=== PATIENT | male | born 1945 | race Caucasian/White ===

== ENCOUNTER 2018-11-13 10:36 | Outpatient (CLI) | payer MEDICARE, OTHER, SELFPAY ==
[2018-11-13 12:14] LABS: Anion Gap 10.2 mmol/L (3-11); BUN 20 mg/dL (7-18); CO2 27.8 mmol/L (21.0-32.0); CREATININE 1.35 mg/dL (0.70-1.30); Calcium 9.1 mg/dL (8.5-10.1); Chloride 105 mmol/L (98-107); Cholesterol 121 mg/dL (50-200); Estimated GFR 51.52 (mL/min/1.73m2); Glucose 98 mg/dL (70-100); HDL Cholesterol 46 mg/dL (40-60); LDL CHOLESTEROL 66 mg/dL (<100); Potassium 3.6 mmol/L (3.5-5.1); Sodium 143 mmol/L (136-145); Triglyceride 51 mg/dL (30-150)
== END 2018-11-13 10:56 ==
PROVIDERS: PCP Internal Medicine; Visit Provider Internal Medicine
DX: I10 Essential (primary) hypertension (principal); I48.91 Unspecified atrial fibrillation; R73.01 Impaired fasting glucose
CPT/HCPCS: 36415; 80048; 80061; 83721

== ENCOUNTER 2019-11-10 10:25 | Outpatient (CLI) | payer MEDICARE, OTHER, SELFPAY ==
[2019-11-10 11:34] LABS: Anion Gap 10.2 mmol/L (3-11); BUN 19 mg/dL (7-18); CO2 27.8 mmol/L (21.0-32.0); CREATININE 1.34 mg/dL (0.70-1.30); Calcium 9.1 mg/dL (8.5-10.1); Calculated LDL 86 mg/dL; Chloride 104 mmol/L (98-107); Cholesterol 142 mg/dL (<200); Estimated GFR 51.83 (mL/min/1.73m2); Glucose 103 mg/dL (74-106); HDL Cholesterol 43 mg/dL (40-60); Potassium 3.6 mmol/L (3.5-5.1); Sodium 142 mmol/L (136-145); Triglyceride 67 mg/dL (<150)
== END 2019-11-10 10:45 ==
PROVIDERS: PCP Internal Medicine; Visit Provider Internal Medicine
DX: E78.00 Pure hypercholesterolemia, unspecified (principal); I10 Essential (primary) hypertension
CPT/HCPCS: 36415; 80048; 80061

== ENCOUNTER 2020-10-17 02:01 | Outpatient (CLI) | payer MEDICARE, SELFPAY ==
[2020-10-17 11:55] LABS: Anion Gap 8.8 mmol/L (3-11); BUN 32 mg/dL (7-18); CO2 30.2 mmol/L (21.0-32.0); CREATININE 1.58 mg/dL (0.70-1.30); Calcium 8.7 mg/dL (8.5-10.1); Calculated LDL 75 mg/dL (<100); Chloride 105 mmol/L (98-107); Cholesterol 136 mg/dL (<200); Estimated GFR 42.74 (mL/min/1.73m2); Glucose 120 mg/dL (74-106); HDL Cholesterol 46 mg/dL (40-60); Sodium 144 mmol/L (136-145); Triglyceride 78 mg/dL (<150)
== END 2020-10-17 02:21 ==
PROVIDERS: PCP Internal Medicine; Visit Provider Internal Medicine
DX: I10 Essential (primary) hypertension (principal); E78.00 Pure hypercholesterolemia, unspecified
CPT/HCPCS: 36415; 80048; 80061

== ENCOUNTER 2021-02-09 08:52 | Outpatient (CLI) | payer MEDICARE, OTHER, SELFPAY ==
[2021-02-10 15:03] LABS: COVID-19 RT-PCR UVMMC Result Negative (Negative)
== END 2021-02-09 08:53 | disposition home or self-care (01) ==
PROVIDERS: PCP Internal Medicine; Visit Provider Internal Medicine
DX: Z20.822 Contact with and (suspected) exposure to COVID-19 (principal)
CPT/HCPCS: U0003; U0005

== ENCOUNTER 2021-03-07 03:09 | Outpatient (CLI) | payer MEDICARE, OTHER, SELFPAY ==
[2021-03-07 11:38] LABS: Anion Gap 7.5 mmol/L (3-11); BUN 25 mg/dL (7-18); CO2 29.5 mmol/L (21.0-32.0); CREATININE 1.5 mg/dL (0.70-1.30); Calcium 8.7 mg/dL (8.5-10.1); Chloride 106 mmol/L (98-107); Estimated GFR 45.38 (mL/min/1.73m2); Glucose 161 mg/dL (74-106); Potassium 3.8 mmol/L (3.5-5.1); Sodium 143 mmol/L (136-145)
== END 2021-03-07 03:10 | disposition home or self-care (01) ==
LOC: LBO 03:09
PROVIDERS: PCP Internal Medicine; Visit Provider Internal Medicine
DX: I10 Essential (primary) hypertension (principal); N18.9 Chronic kidney disease, unspecified
CPT/HCPCS: 36415; 80048

== ENCOUNTER 2021-07-27 01:17 | Outpatient (CLI) | payer MEDICARE, OTHER, SELFPAY ==
[2021-07-27 09:22] LABS: HCT 35.7 % (40.0-50.0); HGB 11.4 g/dL (13.5-17.5); MCH 26.8 pg (27.0-33.0); MCHC 31.9 % (32.0-36.0); MCV 83.8 fL (80-95); MPV 10.3 fL (8.0-11.0); Platelet Count 276 10^3/uL (130-400); RBC 4.26 10^6/uL (4.36-5.78); RDW 15.9 % (11.8-14.1); RDW-SD 48.6 fL
[2021-07-27 11:09] LABS: ALT 21 U/L (16-63); AST 15 U/L (15-37); Albumin 3.4 g/dL (3.4-5.0); Alkaline Phosphatase 137 U/L (46-116); BUN 26 mg/dL (7-18); Bilirubin, Total 0.7 mg/dL (0.2-1.0); CREATININE 1.5 mg/dL (0.70-1.30); Calcium 8.7 mg/dL (8.5-10.1); Chloride 105 mmol/L (98-107); Estimated GFR 45.26 (mL/min/1.73m2); Glucose 105 mg/dL (74-106); Potassium 4.1 mmol/L (3.5-5.1); Sodium 142 mmol/L (136-145); Total Protein 7.2 g/dL (6.4-8.2); Vitamin B12 362 pg/mL (193-986)
== END 2021-07-27 01:18 | disposition home or self-care (01) ==
LOC: LBO 01:17
PROVIDERS: PCP Internal Medicine; Visit Provider Internal Medicine
DX: R53.83 Other fatigue (principal)
CPT/HCPCS: 36415; 80053; 85027; 82607; 84443

== ENCOUNTER 2021-08-03 01:42 | Outpatient (CLI) | payer MEDICARE, OTHER, SELFPAY ==
[2021-08-03] MEDS: Albuterol HFA 18 GM 200 PUFF INH IH (08:40)
[2021-08-03] MEDS: Inhaler, Assist Device 1 EACH MC (08:41)
--- NOTE | 2021-08-03 15:22 | W.PFT ---
Date of service: 08/03/21 Time of Service: 08:00 Pulmonary Function Test Result Requesting Provider Ilda Kennedy Indications: Dyspnea on exertion Interpretation Spirometry: There is no airflow limitation. There is no significant bronchodilator response. Lung Volumes: Lung volumes are normal Diffusion Capacity: The diffusion is reduced Airway Pressure: Airways resistance is normal Impression Normal spirometry and lung volumes with a reduced diffusion. Clinical Correlation therefore is recommended.
== END 2021-08-03 01:43 | disposition home or self-care (01) ==
LOC: RT 01:42
PROVIDERS: PCP Internal Medicine; Visit Provider Internal Medicine
DX: R06.09 Other forms of dyspnea (principal); R53.83 Other fatigue; R94.2 Abnormal results of pulmonary function studies
CPT/HCPCS: 36415; 94060; 94726; 94729; 83540; 83550; 85045

== ENCOUNTER 2021-08-03 02:12 | Outpatient (CLI) | payer MEDICARE, OTHER, SELFPAY ==
[2021-08-03 09:43] LABS: Reticulocyte 1.8 % (0.5-2.4)
[2021-08-03 11:02] LABS: Iron 32 ug/dL (65-175); Total Iron Binding Capacity 361 ug/dL (250-450); Transferrin Sat 9 % (20-55)
== END 2021-08-03 02:13 | disposition home or self-care (01) ==
LOC: LBO 02:14
PROVIDERS: PCP Internal Medicine; Visit Provider Internal Medicine
DX: D64.9 Anemia, unspecified (principal)
CPT/HCPCS: 36415; 83540; 83550; 85045

== ENCOUNTER 2021-08-06 00:25 | Outpatient (CLI) | payer MEDICARE, OTHER, SELFPAY ==
--- NOTE | 2021-08-06 05:45 | ETT_ITS ---
APPROVED REPORT Exam: Exercise Treadmill Patient Location: Out-Patient Room/Bed: Stress Nurse: Elke Paez RN Ordering Provider:JERE BANUELOS, Contact Number: [phone] BMI: 39.86 Baseline Rhythm: Atrial Fibrillation Comment: occasional PVC Indications: DYSPNEA ON EXERTION Medical History Medical History: HTN, AFIB w/ RVR, CKD, GERD, HLD, Venous insufficiency, Obesity, Hypomagnesemia, SOB , Impaired fasting glucose Cardiac Medications: Simvastatin, Rivaroxaban, Omeprazole, Metoprolol tartrate, Magnesium oxixde, Los jess, Doxazosin, Bumetanide, Amlodipine Allergies: No known drug allergies Cardiac Risk Factors: FHX of CAD, HTN, Hyperlipidemia, Obesity, Smoking (former) Previous Cardiac Procedures: None Pretest Chest Pain Characteristics: Dyspnea Exercise History: Sedentary Physical Disabilities: None Lung Sounds: Clear to auscultation Heart Sounds: Irregular Stress Test Details Test: Exercise stress testing was performed using a Marlo protocol. Rest Stress HR Resting HR Supine: 76 bpm Max Heart Rate (APMHR): 142 bpm Resting HR Standin bpm Target HR (85% APMHR): 120 bpm Max HR Achieved: 126 bpm % of APMHR: 88 Recovery HR: 71 bpm HR response to stress: Normal HR response to stress Comment: Metoprolol tartrate not held BP Resting BP Supine: 128/82 mmHg Resting BP Standin/72 mmHg Max BP: 138/80 mmHg Recovery BP: 138/80 mmHg BP response to stress: Normal blood pressure response to stress. ECG Resting ECG: Atrial Fibrillation Ectopy: occasional PVC Stress ECG: Atrial Fibrillation ST Change: No significant ST segment changes noted Arrhythmia: None Recovery ECG: Atrial Fibrillation Recovery ST Change: No significant ST segment changes noted Recovery Arrhythmia: occasional PVC Clinical Reason for Termination: Dyspnea, Fatigue Stress Symptoms: Dyspnea, General Fatigue Exercise duration: 2 min17 sec Highest Stage Reached: Stage 1: 1.7 mph at 10% grade. Exercise capacity: 4.64 METs De La Rosa Treadmill Score: 2 Rate Pressure Product: [id number] Stress ECG Conclusion 1. The resting electrocardiogram showed atrial fibrillation 2. The patient exercised on the Marlo protocol and completed a workload of 4.64 METS, limited by shor tness of breath and fatigue 3. Normal heart rate and blood pressure response to exercise. The patient achieved 88% of predicted heart rate for age 4. Electrocardiographically there was no evidence of myocardial ischemia 5. Atrial fibrillation was present throughout, with occasional premature ventricular contractions De La Rosa Treadmill Score is 2 which is Moderate risk. Stress Test Summary STAGE Time (mins) Speed (mph) Grade (%) HR BP SYMPTOMS METS Supine 76 128/82 Standing 72 122/72 1 3 1.7 10 severe SOB; SpO2 97% 4.6 1 min recovery 71 136/62 3 min recovery 74 132/72 moderate SOB 6 min recovery 71 138/80 SOB resolved.
--- NOTE | 2021-08-06 05:58 | DI.RAD_ITS ---
Exam(s) XR CHEST 2V PA LATERAL EXAM: XR CHEST 2V PA LATERAL CLINICAL HISTORY: dyspnea ON EXERTION,R06.00 TECHNIQUE: COMPARISON: CR CHEST 2 VIEWS PA,LAT from 12/15/2014 FINDINGS: The heart is at the upper limits of normal size. The lungs appear clear. No pleural effusion seen. IMPRESSION: No evidence of acute process. No change from examination of November 2014. RADIATION DOSE DELIVERED: Total DLP
== END 2021-08-06 00:45 ==
PROVIDERS: PCP Internal Medicine; Visit Provider Internal Medicine
DX: R06.09 Other forms of dyspnea (principal); R53.83 Other fatigue; I48.91 Unspecified atrial fibrillation; Z82.49 Family history of ischemic heart disease and other diseases of the circulatory system; I10 Essential (primary) hypertension; E78.5 Hyperlipidemia, unspecified; E66.9 Obesity, unspecified; Z87.891 Personal history of nicotine dependence; I49.3 Ventricular premature depolarization
CPT/HCPCS: 93016; 93018; 71046; 93017

== ENCOUNTER 2021-09-18 01:06 | Outpatient (CLI) | payer MEDICARE, OTHER, SELFPAY ==
--- NOTE | 2021-09-18 07:00 | DI.US_ITS ---
APPROVED REPORT EXAM: Comprehensive 2D, Doppler, and color-flow Echocardiogram Patient Location: Out-Patient [employer] Dean: Brissa Zhou RDCS (AE) Indications: Dyspnea on exertion, A Fib Other Information Study Quality: Fair. Technically limited study due to body habitus. Conclusion Mild concentric left ventricular hypertrophy. Estimated ejection fraction is 55 to 60%. Wall motion is normal Normal right ventricular size and systolic function Both atria are moderately dilated The aortic valve is trileaflet and sclerotic without stenosis or regurgitation Mild mitral annular calcification. Trace to mild mitral regurgitation Normal tricuspid valve with mild regurgitation. Unable to estimate right ventricular systolic pressu re Dilated ascending aorta measuring 4.12 cm Wall motion Left Ventricle The left ventricle is normal size. The left ventricular systolic function is normal. The left ventric ular ejection fraction is within the normal range. Mild concentric left ventricular hypertrophy. Ther e is normal LV segmental wall motion. There is no ventricular septal defect visualized. LVEF is 57%. Right Ventricle The right ventricle is normal size. The right ventricular systolic function is normal. Atria Left atrium is moderately dilated. Right atrium is moderately dilated. The interatrial septum is inta ct with no evidence for an atrial septal defect. Aortic Valve The Aortic valve is sclerotic. Aortic valve is trileaflet. There is no aortic valvular stenosis. No a ortic regurgitation is present. Mitral Valve Mild mitral annular calcification. No evidence of mitral valve stenosis. Trace to mild mitral regurgi tation. Tricuspid Valve The tricuspid valve is normal in structure. There is no tricuspid valve stenosis. Mild tricuspid regu rgitation. Unable to assess PA pressure. Pulmonic Valve Pulmonic valve is not well visualized. There is no pulmonic valvular stenosis. There is no pulmonic v alvular regurgitation. Great Vessels The aortic root is normal in size. The ascending aorta is moderately dilated.4.12 cm Aortic arch is n ormal in caliber. IVC is normal in size and collapses >50% with inspiration. Pericardium There is no pericardial effusion. 2D Dimensions IVSD d PLAX 1.17 cm M: 0.6-1.2 LV Vol A2C d MOD 129.1 mL LVPW d PLAX 1.26 cm M: 0.6 - 1.2 LV Vol A4C d MOD 99.8 mL LVID d PLAX 4.80 cm M: 4.2 - 5.8 LA vol/ BSA A2C s A-L 53.2 mL/m2 LVDs 3.35 cm M: 2.5 - 4.0 LA vol/ BSA A4C s A-L 39.9 mL/m2 Ao Root d 3.29 cm M: 3.1 - 3.7 LA Vol/ BSA Biplane s A-L 47.7 mL/m2 RA Area A4C 20.73 cm2 LA Area A4C s MOD 26.76 cm2 RA Vol/ BSA A4C s A-L 27.2 mL/m2 LA Area A2C s MOD 32.04 cm2 Ao Asc Diam d 4.12 cm M: 2.6 - 3.4 LV EF A4C MOD 57.2 % LV EF Teichholz 56.4 % LV EF A2C MOD 57.7 % LVEF (Real's) 57.38 % M: 52 - 72 LV EF Biplane MOD 57.4 % LV Volume 81.06 mL M: 62 - 150 SV 65.23 mL LV Volume Index 34.64 mL/m2 M: 34 - 74 SV Index 27.80 mL/m2 LV Vol Biplane MOD 113.7 mL FS 29.50 % M-Mode TAPSE 1.56 cm (M/F) >1.7 LV Diastology MV E' medial 0.089 (>0.07 m/s) MV E Vmax 1.05 (0.4-1.3 m/s) LV E/e MED 11.80 (<14) MV E' lateral 0.110 (>0.1 m/s) LV E/e LAT 9.55 (<14) MV E/E' medial 11.81 MV E/E' lateral 9.60 Aortic Valve LVOT Area 3.42 cm2 AoV Area Vmax 1.91 cm2 LVOT Vmax 0.94 m/s AoV Area/ BSA (Vmax) 0.81 cm2/m2 LVOT Mean Venkat. 0.79 m/s SUSANNE Mean Venkat. 2.31 cm2 LVOT Peak Grad 3.5 mmHg SUSANNE Mean Venkat. Index 0.98 cm2/m2 LVOT Mean Grad 2.7 mmHg LVOT VTI 0.217 m LVOT Diam s 2.05 cm AoV Vmax 1.68 m/s Velocity Ratio 0.55 AoV Mean Venkat. 1.18 m/s AoV Peak Grad 11.3 mmHg LVOT SV 74.14 mL AoV Mean Grad 6.2 mmHg AoV VTI 0.352 m AoV Area VTI 2.10 cm2 AoV Area/ BSA (VTI) 0.90 cm/m2 Mitral Valve MV DT 180 (160-240 msec) MV PHT 52 msec MV Area PHT 4.22 cm2 MV VTI 0.308 m MV Area VTI 2.41 (4.0-6.0 cm2) Pulmonary Valve PV Vmax 1.02 (0.5-1.5 m/s) RVOT Peak Gr. 1.51 mmHg PV Peak Grad 4.1 mmHg RVOT Mean Gr. 0.90 mmHg PV Mean Grad 2.4 mmHg RVOT VTI 0.115 m PV VTI 0.204 m RVOT Vmax 0.61 m/s
== END 2021-09-18 01:26 ==
PROVIDERS: PCP Internal Medicine; Visit Provider Internal Medicine
DX: R06.00 Dyspnea, unspecified (principal); I48.91 Unspecified atrial fibrillation; R93.9 Diagnostic imaging inconclusive due to excess body fat of patient; I77.810 Thoracic aortic ectasia; I08.1 Rheumatic disorders of both mitral and tricuspid valves
CPT/HCPCS: 93306

== ENCOUNTER 2022-04-17 10:48 | Emergency (ER) | payer MEDICARE, OTHER, SELFPAY ==
[2022-04-17 10:49] VITALS: BP 156/86; PULSE 89; RESP 16; TEMP 36.3; O2SAT 96
--- NOTE | 2022-04-17 11:11 | ED.GENADUL_ITS ---
Discharge Plan Disposition Patient Disposition: HOME Condition: Improving Discharge Details Clinical Impression: Anterior epistaxis Primary Care Provider: Ilda Kennedy ED Provider: Igor Sanchez Home Meds and New Rx's Prescriptions: Continued albuterol sulfate 90 mcg/actuation HFA aerosol inhaler 2 puff inhalation QID PRN (Reason: shortness of breath or wheezing) Qty: 1 2RF Rx Instructions: Use 2 puffs in the AM then up to 3 more times a day as needed. Use with a spacer. (DME) compr.stocking,knee,long,large Misc See Rx Instructions .ROUTE .MEDSUPPLY Qty: 1 12RF Rx Instructions: As directed magnesium oxide 400 MG tablet 400 mg PO BID Qty: 60 losartan 100 mg tablet 100 mg PO DAILY Qty: 90 3RF metoprolol tartrate 100 mg tablet 200 mg PO BID Qty: 360 3RF simvastatin 20 mg tablet 10 mg PO DAILY Qty: 45 3RF omeprazole 20 mg capsule,delayed release(DR/EC) 20 mg PO DAILY Qty: 90 2RF Xarelto 20 mg tablet 20 mg PO DAILY Qty: 90 2RF amlodipine 5 mg tablet 5 mg PO DAILY Qty: 90 1RF doxazosin 2 mg tablet 2 mg PO DAILY Qty: 90 1RF bumetanide 2 mg tablet 2 mg PO DAILY Qty: 90 1RF Discharge Instructions Instructions: Nosebleed (ED) Additional Instructions: Please hold 1 dose of your rivaroxaban. If you have recurrent bleeding, placed on nasal clamps for 20 minutes without interruption. Return to the ER for any acute concerns Medical Decision Making 77-year-old male with history of atrial fibrillation for which she is maintained on amlodipine, metoprolol, rivaroxaban. While sitting on the toilet this morning he had brief right anterior nostril bleeding responded to pressure at home. EMS was called and patient was transported to the ED. By the time of arrival the bleeding has ceased. There is no blood in oropharynx. Discussed with patient options. We will place bacitracin today, patient instructed on use of nasal clamp, we will defer early placement of nasal tampon or packing, no active bleeding is identified at this time. Patient stable and appropriate for discharge to home. I will have him hold 1 dose of rivaroxaban and then resume. He understands indications to seek reevaluation in the ER. HPI General Mode of arrival: EMS . Date/Time Provider Initiated Documentation: 04/17/22 11:16 . Limitations to Documentation: no limitations . Information obtained by: patient, family and EMS . History of Present Illness 77 year old M presents to the emergency department with the chief complaint of Epistaxis at home, described as mild, and is localized to the face and right. Patient reports no radiation. Patient started experiencing this minute(s) and it has been now resolved. No relieving factors improve symptom(s), No exacerbating factors reported . Patient notes denies headaches and weakness. Patient did receive the following treatments prior to arrival, other (Pressure at home) Related Data Home Medications Medication Instructions Recorded Confirmed magnesium oxide 400 mg (241.3 mg 400 mg PO BID #60 tabs 12/23/14 04/17/22 magnesium) tablet losartan 100 mg tablet 100 mg PO DAILY #90 tabs 07/18/21 04/17/22 metoprolol tartrate 100 mg tablet 200 mg PO BID #360 tab-caps 07/18/21 04/17/22 simvastatin 20 mg tablet 10 mg PO DAILY #45 tab-caps 07/18/21 04/17/22 albuterol sulfate 90 mcg/actuation 2 puff inhalation QID PRN 09/11/21 04/17/22 aerosol inhaler shortness of breath or wheezing #1 unit omeprazole 20 mg capsule,delayed 20 mg PO DAILY #90 tab-caps 10/23/21 04/17/22 release rivaroxaban 20 mg tablet (Xarelto) 20 mg PO DAILY #90 tab-caps 10/23/21 04/17/22 amlodipine 5 mg tablet 5 mg PO DAILY #90 tab-caps 12/27/21 04/17/22 bumetanide 2 mg tablet 2 mg PO DAILY #90 tabs 01/01/22 04/17/22 doxazosin 2 mg tablet 2 mg PO DAILY #90 tab-caps 01/01/22 04/17/22 compr.stocking,knee,long,large ##1 03/13/22 04/17/22 Previous Rx's Medication Instructions Recorded losartan 100 mg tablet 100 mg PO DAILY #90 tabs 07/18/21 metoprolol tartrate 100 mg tablet 200 mg PO BID #360 tab-caps 07/18/21 simvastatin 20 mg tablet 10 mg PO DAILY #45 tab-caps 07/18/21 albuterol sulfate 90 mcg/actuation 2 puff inhalation QID PRN 09/11/21 aerosol inhaler shortness of breath or wheezing #1 unit omeprazole 20 mg capsule,delayed 20 mg PO DAILY #90 tab-caps 10/23/21 release rivaroxaban 20 mg tablet (Xarelto) 20 mg PO DAILY #90 tab-caps 10/23/21 amlodipine 5 mg tablet 5 mg PO DAILY #90 tab-caps 12/27/21 bumetanide 2 mg tablet 2 mg PO DAILY #90 tabs 01/01/22 doxazosin 2 mg tablet 2 mg PO DAILY #90 tab-caps 01/01/22 compr.stocking,knee,long,large ##1 03/13/22 Allergies Allergy/AdvReac Type Severity Reaction Status Date / Time No Known Allergies Allergy Verified 04/17/22 10:54 General Stated Complaint: Epistaxis VAL: 4 Review of Systems Narrative: 6 systems reviewed and otherwise PFSH All Active Problems (Updated 04/17/22 @ 11:16 by Igor Sanchez MD) Anterior epistaxis (Acute) JANINE (obstructive sleep apnea) (Chronic ~2007) 01/01/22 F/U Sleep Clinic - new cpap supplies, f/u in 2 years Iron deficiency anemia (Acute ~11/2021) 12/12/21 gastric polyps (removed during endoscopy) by Dr Valenzuela Hypertension (Chronic) Atrial fibrillation with RVR (Acute 12/15/14) Chronic anticoagulation (Chronic) Chronic kidney disease (CKD) (Chronic) Impaired fasting glucose (Chronic) GERD (gastroesophageal reflux disease) (Chronic) Hyperlipidemia (Chronic) Venous insufficiency (Chronic) Migraine without aura (Acute 02/10/12) Benign prostatic hypertrophy (Chronic) Obesity (Chronic) Hypomagnesemia (Acute 12/15/14) Medical History Polyp, stomach (~12/12/21) 12/12/21 removed during endoscopy by Dr Valenzuela (waiting on pathology) Surgical History Colonoscopy - IV Sedation (09/07/04) Excision, Pilonidal Cyst (10/27/1957) fx left lower leg 1953 gallbladder (01/28/13) H/O colonoscopy (~12/12/21) H/O endoscopy (~12/12/21) 12/12/21 Endoscopy w stomach polyps removed ( Dr Valenzuela) Family History Father , old age/longevity. 93 yo. No problems noted. Mother , 88 yo No problems noted. Social History Smoking/Tobacco Use Status: Never Smoking risk assessment performed?: Yes Alcohol Intake: current Alcohol Intake frequency: holidays/special occasions only Drug use: Never Substance use type: does not use Household members: spouse Housing: house Number of Children: 2 number of grandchildren: 3 Communication Needs: Corrective Lenses current occupation: retired from [employer] shop Current gender identity: male What is your relationship status?: Panel score (0-1 are the most socially isolated patients): 1 What type of physical activity do you participate in: walking Duration: 15-30 minutes/day Frequency: 3-4 times per week Seatbelt use: always Drive 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 Pleasant, well groomed, interactive. HEAD: Normocephalic, atraumatic ENT: Mucous membranes moist, oropharynx unremarkable, trace dried blood right nare, no active bleeding, left nare unremarkable, external ear exam unremarkable EYES: PERRL, EOMI NECK: Full ROM, no ROSIE, no menigismus CHEST/RESP: Nontender, clear to auscultation bilateral, no wheeze/rhonchi/rales CARDIOVASCULAR: Irregularly irregular, distant, no murmur, rub lucio. 2+ Rad pulse bilateral ABDOMEN: Soft, nontender, no mass. +Bowel sounds EXT: Full ROM, no edema, no rash Neuro: Grossly normal neurologic exam, conversant, interactive. Psych: Speech fluent, thoughts congruent, affect normal Course Vital Signs Vital signs: Vital Signs Temperature 36.3 C L 04/17/22 10:49 Pulse 89 04/17/22 10:49 Respiratory Rate 16 04/17/22 10:49 Blood Pressure 156/86 H 04/17/22 10:49 Pulse Oximetry 96 04/17/22 10:49 Temperature 36.3 C L 04/17/22 10:49 Temperature Source Oral 04/17/22 10:49 Pulse 89 04/17/22 10:49 Respiratory Rate 16 04/17/22 10:49 Respiratory Effort 04/17/22 10:53 Blood Pressure 156/86 H 04/17/22 10:49 Blood Pressure Position Sitting 04/17/22 10:49 Pulse Oximetry 96 04/17/22 10:49 Oxygen Delivery Method Room Air 04/17/22 10:49 Oxygen Flow Rate 0 04/17/22 10:49 Pain Level 0 04/17/22 10:49
== END 2022-04-17 11:50 | disposition home or self-care (01) ==
PROVIDERS: Emergency Provider Emergency Medicine; PCP Internal Medicine
DX: R04.0 Epistaxis (principal)
CPT/HCPCS: 99283

== ENCOUNTER 2022-04-26 01:29 | Emergency (ER) | payer MEDICARE, OTHER, SELFPAY ==
--- NOTE | 2022-04-26 01:17 | W.ED.GENAD ---
Discharge Plan Disposition Patient Disposition: HOME Condition: Good Discharge Details Clinical Impression: Epistaxis Primary Care Provider: Ilda Kennedy ED Provider: Moriah Ordoñez Home Meds and New Rx's Prescriptions: Continued albuterol sulfate 90 mcg/actuation HFA aerosol inhaler 2 puff inhalation QID PRN (Reason: shortness of breath or wheezing) Qty: 1 2RF Rx Instructions: Use 2 puffs in the AM then up to 3 more times a day as needed. Use with a spacer. (DME) compr.stocking,knee,long,large Misc See Rx Instructions .ROUTE .MEDSUPPLY Qty: 1 12RF Rx Instructions: As directed magnesium oxide 400 MG tablet 400 mg PO BID Qty: 60 losartan 100 mg tablet 100 mg PO DAILY Qty: 90 3RF metoprolol tartrate 100 mg tablet 200 mg PO BID Qty: 360 3RF simvastatin 20 mg tablet 10 mg PO DAILY Qty: 45 3RF omeprazole 20 mg capsule,delayed release(DR/EC) 20 mg PO DAILY Qty: 90 2RF Xarelto 20 mg tablet 20 mg PO DAILY Qty: 90 2RF amlodipine 5 mg tablet 5 mg PO DAILY Qty: 90 1RF doxazosin 2 mg tablet 2 mg PO DAILY Qty: 90 1RF bumetanide 2 mg tablet 2 mg PO DAILY Qty: 90 1RF Discharge Instructions Instructions: Nosebleed (ED) Additional Instructions: Keep your nose lubricated with plenty of vaseline once to twice daily. Be sure to sneeze with your mouth open and do not blow your nose. If you have any further nosebleeds, apply the nasal clamp. If it continues to bleed, you can apply an ice pack to your forehead and spray Afrin within your nose as directed. Follow-up with your primary care doctor in 1 week. Return to the emergency department with any worsening or new concerning symptoms. Discharge Data Discharge Date/Time-TO BE ENTERED AT DEPARTURE: 04/26/22 02:19 Discharge Physician: Moriah Ordoñez Medical Decision Making 77-year-old male with a history of atrial fibrillation on Xarelto, hypertension, hyperlipidemia, obesity, obstructive sleep apnea, GERD, migraine who presents for nosebleed that lasted approximately 30 to 45 minutes and then stopped. Bleeding noted to be stopped upon arrival of EMS on scene. Blood pressure hypertensive at 168/74 on arrival. Patient appears comfortable and nontoxic. Dried blood noted within the right nares but no active source of bleeding. No blood in oropharynx. Nasal clamp removed on arrival and patient observed for over 30 minutes and no return of bleeding. Patient felt comfortable going home. He was advised on proper placement of Vaseline within the nares and to make sure it is well lubricated. Advised to follow-up with the PCP regarding instruction on his Xarelto. Usual and customary return precautions given prior to discharge. Medical Records Medical records reviewed: Yes I reviewed the patient's medical records. HPI General Mode of arrival: ambulatory. Date/Time Provider Initiated Documentation: 04/26/22 02:10. Limitations to Documentation: no limitations. Information obtained by: patient. HPI Narrative: Patient is a 77-year-old male with a history of atrial fibrillation on Xarelto, GERD, hypertension, hyperlipidemia, JANINE, obesity and migraine presents for nosebleed that started 2 hours ago at 11 PM. EMS reported that nosebleed has stopped prior to arrival. Of note, patient was seen here 1 week ago for a nosebleed that had stopped on arrival to the ED. patient states he was getting ready for bed when he placed a Q-tip with Vaseline in the right side of his nose as instructed in the emergency department last week but states upon doing this, he developed nosebleed. Patient states that blood for approximately 30 to 45 minutes and then stopped with use of the nasal clamp. Upon arrival of EMS, bleeding remained controlled. Patient denies any headache, dizziness, chest pain or shortness of breath. Related Data Home Medications Medication Instructions Recorded Confirmed magnesium oxide 400 mg (241.3 mg 400 mg PO BID #60 tabs 12/23/14 04/26/22 magnesium) tablet losartan 100 mg tablet 100 mg PO DAILY #90 tabs 07/18/21 04/26/22 metoprolol tartrate 100 mg tablet 200 mg PO BID #360 tab-caps 07/18/21 04/26/22 simvastatin 20 mg tablet 10 mg PO DAILY #45 tab-caps 07/18/21 04/26/22 albuterol sulfate 90 mcg/actuation 2 puff inhalation QID PRN 09/11/21 04/26/22 aerosol inhaler shortness of breath or wheezing #1 unit omeprazole 20 mg capsule,delayed 20 mg PO DAILY #90 tab-caps 10/23/21 04/26/22 release rivaroxaban 20 mg tablet (Xarelto) 20 mg PO DAILY #90 tab-caps 10/23/21 04/26/22 amlodipine 5 mg tablet 5 mg PO DAILY #90 tab-caps 12/27/21 04/26/22 bumetanide 2 mg tablet 2 mg PO DAILY #90 tabs 01/01/22 04/26/22 doxazosin 2 mg tablet 2 mg PO DAILY #90 tab-caps 01/01/22 04/26/22 compr.stocking,knee,long,large ##1 03/13/22 04/17/22 Previous Rx's Medication Instructions Recorded losartan 100 mg tablet 100 mg PO DAILY #90 tabs 07/18/21 metoprolol tartrate 100 mg tablet 200 mg PO BID #360 tab-caps 07/18/21 simvastatin 20 mg tablet 10 mg PO DAILY #45 tab-caps 07/18/21 albuterol sulfate 90 mcg/actuation 2 puff inhalation QID PRN 09/11/21 aerosol inhaler shortness of breath or wheezing #1 unit omeprazole 20 mg capsule,delayed 20 mg PO DAILY #90 tab-caps 10/23/21 release rivaroxaban 20 mg tablet (Xarelto) 20 mg PO DAILY #90 tab-caps 10/23/21 amlodipine 5 mg tablet 5 mg PO DAILY #90 tab-caps 12/27/21 bumetanide 2 mg tablet 2 mg PO DAILY #90 tabs 01/01/22 doxazosin 2 mg tablet 2 mg PO DAILY #90 tab-caps 01/01/22 compr.stocking,knee,long,large ##1 03/13/22 Allergies Allergy/AdvReac Type Severity Reaction Status Date / Time No Known Allergies Allergy Verified 04/17/22 10:54 General Stated Complaint: Epistaxis VAL: 4 Review of Systems All systems reviewed & are unremarkable except as noted in HPI and below Constitutional Constitutional: Reports as per HPI, Denies chills and Denies fever(s) Eyes Eyes: Denies blurry vision ENT Ears, Nose, Mouth, and Throat: Denies dizziness, Reports epistaxis, Denies sore throat and Denies throat swelling Cardiovascular Cardiovascular: Denies chest pain and Denies dyspnea Respiratory Respiratory: Denies cough and Denies dyspnea Gastrointestinal Gastrointestinal: Denies abdominal pain, Denies diarrhea and Denies vomiting Genitourinary Genitourinary: Denies hematuria and Denies dysuria Musculoskeletal Musculoskeletal: Denies back pain and Denies numbness Integumentary/Breasts Skin/Breast: Denies lesions and Denies rash Neurologic Neurologic: Denies dizziness, Denies localized weakness and Denies numbness Allergic/Immunologic Allergic/Immunologic: Denies throat swelling PFSH All Active Problems (Updated 04/26/22 @ 02:12 by Moriah Ordoñez DO) Anterior epistaxis (Acute) Epistaxis (Acute) JANINE (obstructive sleep apnea) (Chronic ~2007) 01/01/22 F/U Sleep Clinic - new cpap supplies, f/u in 2 years Iron deficiency anemia (Acute ~11/2021) 12/12/21 gastric polyps (removed during endoscopy) by Dr Valenzuela Hypertension (Chronic) Atrial fibrillation with RVR (Acute 12/15/14) Chronic anticoagulation (Chronic) Chronic kidney disease (CKD) (Chronic) Impaired fasting glucose (Chronic) GERD (gastroesophageal reflux disease) (Chronic) Hyperlipidemia (Chronic) Venous insufficiency (Chronic) Migraine without aura (Acute 02/10/12) Benign prostatic hypertrophy (Chronic) Obesity (Chronic) Hypomagnesemia (Acute 12/15/14) Medical History Polyp, stomach (~12/12/21) 12/12/21 removed during endoscopy by Dr Valenzuela (waiting on pathology) Surgical History Colonoscopy - IV Sedation (09/07/04) Excision, Pilonidal Cyst (10/27/1957) fx left lower leg 1953 gallbladder (01/28/13) H/O colonoscopy (~12/12/21) H/O endoscopy (~12/12/21) 12/12/21 Endoscopy w stomach polyps removed ( Dr Valenzuela) Family History Father , old age/longevity. 93 yo. No problems noted. Mother , 88 yo No problems noted. Social History Smoking/Tobacco Use Status: Never Smoking risk assessment performed?: Yes Alcohol Intake: current Alcohol Intake frequency: holidays/special occasions only Drug use: Never Substance use type: does not use Household members: spouse Housing: house Number of Children: 2 number of grandchildren: 3 Communication Needs: Corrective Lenses current occupation: retired from [employer] Current gender identity: male What is your relationship status?: Panel score (0-1 are the most socially isolated patients): 1 What type of physical activity do you participate in: walking Duration: 15-30 minutes/day Frequency: 3-4 times per week Seatbelt use: always Drive intox or ride w/intox class a regional drivers: No Working smoke detector in home: Yes Fire extinguisher in home: Yes Carbon monox detector in home: Yes Do you feel safe at home: Yes Do you feel safe in your relationship?: Yes Exam Const General: cooperative and no acute distress Orientation: alert, awake and oriented x3 HENMT Head: normal to inspection Ears: hearing grossly normal bilaterally and external ears normal General nose exam: other (Dried blood within nares bilaterally, no active bleeding noted within nares) Mouth: oral mucosae normal Throat: posterior oropharynx normal Eyes General: appearance normal, both eyes and all related structures Neck Neck: normal visual inspection Resp Effort & Inspection: normal respiratory effort and able to speak in complete sentences Auscultation: clear to auscultation bilaterally Cardio Rate: regular rate Rhythm: regular rhythm Skin General skin exam: no rashes or lesions noted Neuro General: patient alert, patient awake and patient oriented x3 Motor: muscle tone normal throughout Extrem General: normal to inspection and full ROM Psych Appearance: grossly normal Affect: normal affect
[2022-04-26 01:20] VITALS: BP 168/74; PULSE 84; RESP 18; TEMP 36.7; O2SAT 98
--- OUTSIDE RECORDS SUMMARY | 2022-04-26 02:19 | XMS_ITS | Clinical Summary ---
:1945 Author Organization [facility] [place] [address] Care Team Providers Name Role Phone Unknown Primary Care Provider Unavailable Social History Tobacco Use Types Packs/Day Years Used Date Never Assessed Sex Assigned at Date Recorded Not on file Plan of Treatment Health Maintenance Due Date Last Done Comments Covid-19 Vaccine (#1) 1948 Hepatitis C Screening 1961 Tdap adult 1962 Tetanus vaccine 1962 Zoster vaccine (1 of 2) 1993 Advance Directive 1998 Pneumoccocal Vaccine: 65+ (1 - PCV) 2008 Influenza (Flu) vaccine (1 of 1 - Influenza standard 06/27/2021 series) Insurance Payer Benefit Plan / Subscriber ID Effective Dates Phone Addre ss Type Group [id number] 2021-Present [phone] HEALTH CLAIMS [address] [address] [place] [address] MEDICARE MEDICARE PART A [id number] 2021-Present [phone] [facility] [address] [place] [address] (Home) [place] [address] Care Teams Underwriting Analyst Relationship Specialty Start Date End Date Unknown PCP - General 08/06/17 None
--- OUTSIDE RECORDS SUMMARY | 2022-04-26 02:19 | XMS_ITS | Encounter Summary ---
:1945 Author Organization [facility] Address [address] [place] [address] Care Team Providers Name Role Phone Reagan Carcamo MD Primary Care Provider [phone] Encounter Details Date Type Department Care Team Description 02/09/2021 Lab Requisition [facility] Outr Resulting Lab, Pathology & Laboratory Provider General acute hospital [address] [place] [address] Social History Tobacco Use Types Packs/Day Years Used Date Never Assessed Sex Assigned at Date Recorded Not on file documented as of this encounter Plan of Treatment Not on filedocumented as of this encounter Procedures Procedure Name Priority Date/Time Associated Diagnosis Comme nts COVID-19 TEST [facility] Today 02/09/2021 10:31 LAB PCR EDT COVID-19 TESTING Routine 02/09/2021 10:31 Results for this EDT procedure are i n the results section. documented in this encounter Results COVID-19 TEST [facility] LAB PCR (02/09/2021 10:31 EDT) Specimen Swab - Entire nasopharynx (body structur e) Performing Organization Address City/State/ZIP Code Phon e Number [facility] [address] [place] [address] SERVICES COVID-19 TESTING (02/09/2021 10:31 EDT) COVID-19 rt-PCR Negative Negative [facility] Result Comment: CENTER [facility]ORY This test has not been FDA c leared or approved. This test has been authorized by FDA under an EUA for use by authorized laboratories. This test has been authorized only for detection of nucleic acid fro SERVICES m 2018-nCo, not for any oth er viruses or pathogens. This test is only authorized for the duration of the declaration that circumstances exist justifying the authorization of emergency use of in vitro d iagnostic tests for detectio n and/or diagnosis of 2019-nCoV under section 564(b)(1) of Act, 21 U.S.C ?? 360bbb-3(b) (1), unless the authorization is terminated or revoked sooner. Negative results do not prec lude 2019-nCoV infection and should not be used as the sole basis for treatment or other patient management decisions. Negative results must be combined with clinical observa tions, patient history, and epidemiological informatio n. Testing was performed using the rosy SARS-CoV-2 assay ([employer] on the Rosy 6800 System Performing Lab Rosy 6800 [facility] Lab [facility] SERVICES Specimen Swab Performing Organization Address City/State/ZIP Code Phon e Number [facility] [address] [place] [address] SERVICES documented in this encounter Visit Diagnoses Not on filedocumented in this encounter Care Teams Bulk Driver Relationship Specialty Start Date End Date Reagan Carcamo MD PCP - General 05/25/14 documented as of this encounter
--- OUTSIDE RECORDS SUMMARY | 2022-04-26 02:19 | XMS_ITS | Clinical Summary ---
:1945 Author Organization [facility] Address [address] [place] [address] Care Team Providers Name Role Phone Reagan Carcamo MD Primary Care Provider [phone] Social History Tobacco Use Types Packs/Day Years Used Date Never Assessed Sex Assigned at Date Recorded Not on file Plan of Treatment Health Maintenance Due Date Last Done Comments Fall Risk Screening 2008 Care Teams Fuel Dock Attendant Relationship Specialty Start Date End Date Reagan Carcamo MD PCP - General 05/25/14
--- OUTSIDE RECORDS SUMMARY | 2022-04-26 02:19 | XMS_ITS | Encounter Summary ---
:1945 Author Organization [facility] [place] [address] Care Team Providers Name Role Phone Unknown Primary Care Provider Unavailable Encounter Details Date Type Department Care Team Description 12/06/[address] [facility] Uriel Valenzuela [address], [place], [place] [address] [address] [place], [place] [phone] [id number] (Wo rk) Social History Tobacco Use Types Packs/Day Years Used Date Never Assessed Sex Assigned at Date Recorded Not on file documented as of this encounter Plan of Treatment Not on filedocumented as of this encounter Procedures Procedure Name Priority Date/Time Associated Diagnosis Comme nts COVID-19 PCR Routine 12/06/2021 10:00 AM Results for this EST procedure are i n the results section . documented in this encounter Results COVID-19 PCR (12/06/2021 10:00 AM EST) [facility] Method Time Signature SARS-CoV-2 Not Detected Not Detected [facility] Comment: This result should be interpreted in com bination with the clinical observations, patient history and epidem iological information in making a final diagnosis. For testing of asymptomatic i ndividuals, assay performance characteristics and clinical utility hav e not been evaluated. Testing for SARS-CoV-2 (Severe acute respiratory syn drome coronavirus 2, formerly known as 2019 novel coronavirus or 2019-nCoV) to aid in the diagnosis of COVID-19 is performed using the [employer] MIGUEL S-CoV-2 Assay as authorized by the FDA Emergency Use Authorization (EUA). This EUA assay is intended for In-vitro Diagnostic (IVD) use with respiratory sp ecimens such as nasopharyngeal swabs collected from individuals during the ac skyla phase of infection. This assay is performed based on the instructions for use provided by [employer] and additional guidance provided by CDC and FDA. Testing is performed in the [facility] within the Department of Pathology and Laboratory Medicine at [facility], certified under the Clinical Laboratory Improvement Amendments of 1988 (CLIA), 42 U.S.C. 263a, to perform high complexi ty tests. Assay performance has been verified according to clinical laborator y regulatory requirements for use with specimens collected from individuals tarsha pected of COVID-19. Test results are provided above. A result of Not Detecte d indicates that the viral RNA target is not present above the limit of detect ion, but does not preclude SARS-CoV-2 infection. False negative results may oc cur if a specimen is improperly collected, transported or handled; if am plification inhibitors are present; or if inadequate numbers of viral particles are present in the specimen. When a diagnostic test is negative, the possibi lity of a false negative result should be considered in the context of a patien t's recent exposures and the presence of clinical signs and symptoms consisten t with COVID-19. A result of Detected indicates that RNA from SARS-CoV-2 was d etected and the patient is infected. As required or requested by public health a uthorities, positive specimens may be sent for additional testing. Positive an d negative predictive values for this test are highly dependent on disease pre valence. A result of Invalid indicates that neither the viral RNA tar gets nor the internal control target was detected. An invalid result suggests the presence of inhibitors. Recollection and re-testing is recommend ed in the case of an invalid result. CDC COVID-19 criteria for testing on hum an specimens and clinical management guidance information are available at th e CDC Coronavirus Disease 2019 (COVID-19) webpage under Information fo r Healthcare Professionals (https://www.cdc.gov/coronavirus/2019-nc ov/hcp/index.html) Additional information about this and ot her EUA tests can be found in provider and patient fact sheets at the following FDA website: https://www.fda.gov/medical-devices/pxuuqihucfy-zagnlyn-0551-mafky-45-ptctcmiej- qou-mmyqhrmnrdvyeb-vznwbsb-devices/yqkyn-lrgmaauaxql-vkpd SARS-Cov-2 RNA Source CUSTOMER SUCCESS SPECIALIST Swab [facility] Specimen (Source) Anatomical Collection Method Collection Time Re ceived Time Location / / Volume Laterality Nasopharyngeal Swab 12/06/2021 10:00 11/27 AM EST 10:41 PM EST Resulting Agency Comment Spec In Lab Uriel Valenzuela DO MICROBIOLOGY - GENERAL RADHA GUERRERO Performing Organization Address City/State/[place] [address] documented in this encounter Visit Diagnoses Not on filedocumented in this encounter Care Teams Chief Engineer Research Relationship Specialty Start Date End Date Unknown PCP - General 08/06/17 None documented as of this encounter
--- OUTSIDE RECORDS SUMMARY | 2022-04-26 02:19 | XMS_ITS | Encounter Summary ---
:1945 Author Organization [facility] Address [address] [place] [address] Care Team Providers Name Role Phone Unavailable Primary Care Provider Unavailable Encounter Details Date Type Department Care Team Description 05/20/2014 Results Only [facility] Uriel Aragon , Laboratory Services - [address]QUEZ [address] [place] [address] [place], [place] [address] [phone] Social History Tobacco Use Types Packs/Day Years Used Date Never Assessed Sex Assigned at Date Recorded Not on file documented as of this encounter Plan of Treatment Not on filedocumented as of this encounter Procedures Procedure Name Priority Date/Time Associated Diagnosis Comme [facility] SURGICAL PATHOLOGY Routine 05/20/2014 7:27 EDT Re sults for this procedure are i n the results section. documented in this encounter Results SURGICAL PATHOLOGY (05/20/2014 7:27 EDT) Pathology Report: SURGICAL PATHOLOGY REPORT SAENZ A DOMINGASHALINI Reports generated via electronic interface contain lucien ginal data; LAB however they are lacking the format of the original re port. Caution should be taken when reading/interpreting unfo rmatted reports. Name: ? RICARDO WALLACE ? Accession #: ? [id number] ? : ? 1945 (Age: 69) ??M ? Collect Date: ? 05/20/2014 ? Location: ? [facility] ? Receive Date: ? 014 ? Provider: URIEL ARAGON DO Copy to: JIE COOK MD ? Final Pathologic Diagnosis: COLON, 70 CM, POLYP, BIOPSY: - ??Benign submucosal leiomyoma. Document reviewed and electronically signed by: CHRISTA LEYVA MD Report ??Date: 05/23/2014 16:40 By the signature above, the attending physician certif ies that he/she has personally conducted a gross and/or microscopic examin ation of the described specimens and rendered or confirmed the above diagnosi s. Specimen(s) Received: Polyp 70 cm Clinical History: Screening Gross Description: ? Received in formalin labelled with proper patient identification (initials F, K) and 1. polyp at 70 cm is a single pink-aiken tissue fragment (0.4 x 0.3 x 0.2 cm). Submitted intact in 1. Analia Lopez 05/23/2014 End of Report Specimen Performing Organization Address City/State/ZIP Code Phon e Number [facility] [address] [place] [address] SERVICES [facility] [address] [place] [address] documented in this encounter Visit Diagnoses Not on filedocumented in this encounter
--- OUTSIDE RECORDS SUMMARY | 2022-04-26 02:19 | XMS_ITS | Encounter Summary ---
:1945 Author Organization [facility] Address [address] [place] [address] Care Team Providers Name Role Phone Unavailable Primary Care Provider Unavailable Encounter Details Date Type Department Care Team Description 09/07/2004 Results Only [facility] - Puja Anguianoelson, Chr istopher, conversion DO [address] [place], [place] [id number] [place] [phone] (Wo rk) Social History Tobacco Use Types Packs/Day Years Used Date Never Assessed Sex Assigned at Date Recorded Not on file documented as of this encounter Plan of Treatment Not on filedocumented as of this encounter Procedures Procedure Name Priority Date/Time Associated Diagnosis Comme [facility] SURGICAL PATHOLOGY Routine 09/07/2004 0:00 EST Re sults for this procedure are i n the results section. documented in this encounter Results SURGICAL PATHOLOGY (09/07/2004 0:00 EST) Pathology Report: SURGICAL PATHOLOGY REPORT DANY Nile JUDITH Reports generated via electronic interface contain lucien ginal data; LAB however they are lacking the format of the original re port. Caution should be taken when reading/interpreting unfo rmatted reports. Name: ? RICARDO WALLACE ? Accession #: ? [id number] ? : ? 1945 (Age: 59) ??M ? Collect Date: ? 09/07/2004 ? Location: ? [facility] ? Receive Date: ? 004 ? Provider: JASSON ARAGON DO Copy to: JIE COOK MD ? Final Pathologic Diagnosis: ? Colon, 15 cm, polyp, biopsy: 1. ?Hyperplastic polyp. 2. ?No adenomatous mucosa identified. ?? Document reviewed and electronically signed by: DARIUS GOLDMAN MD Report ??Date: 09/10/2004 15:57 By the signature above, the attending physician certif ies that he/she has personally conducted a gross and/or microscopic examin ation of the described specimens and rendered or confirmed the above diagnosi s. Specimen(s) Received: ? Polyp 15 cm Clinical History: ? Screening for colon Ca Gross Description: ? Received in Hollande' s fixative labeled Valdemar and polyp 15 cm are three aiken-pink soft tissues averaging 0. 2 x 0.1 x 0.1 cm, submitted in toto in one cassette. [facility] End of Report Specimen Performing Organization Address City/State/ZIP Code Phon e Number [facility] [address] [place] [address] SERVICES [facility] [address] [place] [address] documented in this encounter Visit Diagnoses Not on filedocumented in this encounter
== END 2022-04-26 02:19 | disposition home or self-care (01) ==
LOC: ER 02:18
PROVIDERS: Emergency Provider Physician Assistant; PCP Internal Medicine
DX: R04.0 Epistaxis (principal); I10 Essential (primary) hypertension; I48.91 Unspecified atrial fibrillation; E78.5 Hyperlipidemia, unspecified; Z79.01 Long term (current) use of anticoagulants; Z79.899 Other long term (current) drug therapy
CPT/HCPCS: 99281; 99282

== ENCOUNTER 2022-08-27 03:12 | Outpatient (CLI) | payer MEDICARE, OTHER, SELFPAY ==
[2022-08-27 10:28] LABS: HCT 38.7 % (40.0-50.0); HGB 12.5 g/dL (13.5-17.5); MCH 27.7 pg (27.0-33.0); MCHC 32.3 % (32.0-36.0); MCV 86 fL (80-95); Platelet Count 272 10^3/uL (130-400); RBC 4.51 10^6/uL (4.36-5.78); RDW 15.2 % (11.8-14.1); RDW-SD 47.4 fL; WBC 10.14 10^3/uL (4.4-10.8)
[2022-08-27 10:45] LABS: BUN 31 mg/dL (7-18); CREATININE 1.7 mg/dL (0.70-1.30); Calcium 8.9 mg/dL (8.5-10.1); Calculated LDL 60 mg/dL (<100); Chloride 105 mmol/L (98-107); Cholesterol 129 mg/dL (<200); Glucose 146 mg/dL (74-106); HDL Cholesterol 48 mg/dL (40-60); Potassium 4.3 mmol/L (3.5-5.1); Sodium 141 mmol/L (136-145); Triglyceride 107 mg/dL (<150)
[2022-08-27 11:26] LABS: Iron 37 ug/dL (65-175)
== END 2022-08-27 03:13 | disposition home or self-care (01) ==
LOC: LBO 03:12
PROVIDERS: PCP Nurse Practitioner Adult Health; Visit Provider Internal Medicine
DX: E78.00 Pure hypercholesterolemia, unspecified (principal); D50.9 Iron deficiency anemia, unspecified; I10 Essential (primary) hypertension
CPT/HCPCS: 36415; 80048; 80061; 85027; 83540

== ENCOUNTER 2023-01-24 02:59 | Emergency (ER) | payer MEDICARE, OTHER, SELFPAY ==
[2023-01-24] VITALS (98 sets, daily range): BP systolic 147–180; BP diastolic 71–103; PULSE 41–119; RESP 12–23; TEMP 36.1; O2SAT 97
--- NOTE | 2023-01-24 02:45 | RT.EKG_ITS ---
APPROVED REPORT Exam: Resting ECG Reason for Exam: dizzy Patient Location: E HR:80 bpm ECG Measurements Heart Rate 80 AXIS CO [id number] P [id number] QRSd 103 QRS 47 QT 436 T 48 QTc 504 Conclusion Atrial fibrillation...V-rate 64-111, irreg A-activity Anteroseptal infarct, old...Q >40mS, V1-V2 Prolonged QT interval...QTc >500mS Rate controlled atrial fibrillation at a rate of 70 with interventricular conduction delay and a QRS of 103 ms. Normal axis. Prolonged QTc. No ST segment abnormalities. T wave flattening in aVL. No prior for comparison.
--- NOTE | 2023-01-24 03:14 | ED.GENADUL_ITS ---
Discharge Plan Disposition Patient Disposition: Transfer-Acute Inpatient Care Specific Acute Inpt Facility: [facility] Condition: Stable Discharge Details Clinical Impression: Acute non-ST elevation myocardial infarction (NSTEMI), Dizziness, Diaphoresis Primary Care Provider: Lianet Muñoz ED Provider: Mckay Iraheta Home Meds and New Rx's Prescriptions: Continued albuterol sulfate 90 mcg/actuation HFA aerosol inhaler 2 puff inhalation QID PRN (Reason: shortness of breath or wheezing) Qty: 1 2RF Rx Instructions: Use 2 puffs in the AM then up to 3 more times a day as needed. Use with a spacer. Xarelto 15 mg tablet 15 mg PO DAILY Qty: 90 3RF Rx Instructions: must administer with evening meal (DME) compr.stocking,knee,long,large Misc See Rx Instructions .ROUTE .MEDSUPPLY Qty: 1 12RF Rx Instructions: As directed omeprazole 20 mg capsule,delayed release(DR/EC) 20 mg PO DAILY Qty: 90 3RF simvastatin 20 mg tablet 10 mg PO DAILY Qty: 45 3RF losartan 100 mg tablet 100 mg PO DAILY Qty: 90 3RF doxazosin 2 mg tablet 2 mg PO DAILY Qty: 90 3RF amlodipine 5 mg tablet 5 mg PO DAILY Qty: 90 3RF bumetanide 1 mg tablet 1 mg PO DAILY Qty: 90 1RF Rx Instructions: Dose decrease 09/16/ ferrous gluconate 324 mg (38 mg iron) tablet 324 mg PO DAILY Qty: 90 1RF Rx Instructions: Anemia magnesium oxide 400 MG tablet 400 mg PO BID Qty: 60 metoprolol tartrate 100 mg tablet 200 mg PO BID Qty: 360 1RF Medical Decision Making This is an overall well-appearing afebrile and not tachycardic 77-year-old male with acute vestibular syndrome. He has a history of CKD and as result I am concerned for the possibility of electrolyte abnormality. He carries a history of atrial fibrillation and is in a rate controlled atrial fibrillation at a rate of 80. He is anticoagulated appropriately with rivaroxaban. I considered CVA however patient is neurologically intact and not a candidate for tPA based on his rivaroxaban use. His presentation with dizziness is concerning for posterior circulation CVA however the patient lacks truncal ataxia and has a negative Romberg so my suspicion is low for posterior circulation CVA. No recent chiropractic manipulation to suggest increased risk for cervical arterial dissection. Patient's presentation is not consistent with syncope but rather acute vestibular symptom. No reported foreign bodies in the ears. Patient denies alcohol and any history of recent new medications such as aminoglycosides. Will reassess following meclizine assessment of electrolytes and CBC and consider Anni maneuver. We will also check a troponin given patient's risk factors and the rapidity with which his symptoms began. 3:34 AM Patient's nurse tells me that his heart rates fell into the 30s and 40s beats per minute which could certainly cause dizziness. We will repeat ECG now. Patient is on both amlodipine and metoprolol and it certainly possible that he could be experiencing side effects from his dual beta-blockade and calcium channel ray. 4:05 AM Patient's conventional troponin I returned markedly positive at 475ng/L. Repeat ECG nonischemic with persistent rate controlled atrial fib. Patient has never had a positive troponin in the past. Patient's had arrived in the emergency department and she reported that at the time that his dizziness occurred it was associated with weakness and diaphoresis. Patient reports that he has never been diagnosed with coronary artery disease. He has no history of diabetes. Unfortunately [facility], [facility], [facility], and [facility] are all close to transfers at the moment. I have given the patient 325 mg of aspirin. Will attempt transfer to [facility]. 4:36 AM I spoke with Dr. River from the emergency department at [facility] who graciously accepted the patient. She advised heparin drip but advised against clopidogrel. I met with the patient and his and explained need for transfer for possibility of cardiac cath. Patient confirmed full code. He was mildly hypokalemic for which he will receive oral repletion. He was not anemic thrombocytopenic but he did have a mild leukocytosis. He had CKD but no SUMMER. He had a mildly elevated anion gap at 12.7 and mild hyperglycemia at 173 mg/dL. He had a normal bicarbonate. His presentation is not consistent with DKA. He had no hypomagnesemia. He did have an elevated alkaline phosphatase and this is similar to prior. I sent a COVID swab on the patient which is pending. I ordered a portable chest x-ray which, on my preliminary interpretation, showed increased vascular markings and hypoinflated lungs but appears similar to prior dated 2020. Will send labs and a copy of imaging with paramedics to [facility]. HPI General Date/Time Provider Initiated Documentation: 01/24/23 03:12 . HPI Narrative: This is a 77-year-old male with a history of hypertension, hyperlipidemia and atrial fibrillation on rivaroxaban arriving to the emergency department via EMS in the setting of dizziness. Patient reports that he was sitting on a computer at 1 AM when he suddenly felt dizzy and nauseous. He has never had similar symptoms in the past. He has been adherent with his medications. He has had no new medications. He denies routine tobacco, ethanol, and illicits. He reports that his dizziness is constant. It does not vary with position of his head. He denies chest pain vomiting shortness of breath headache fevers abdominal pain dysuria and frequency. 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 He has had no changes in his vision. He has not recently taken any falls. Related Data Home Medications Medication Instructions Recorded Confirmed magnesium oxide 400 mg (241.3 mg 400 mg PO BID #60 tabs 12/23/14 01/24/23 magnesium) tablet albuterol sulfate 90 mcg/actuation 2 puff inhalation QID PRN 09/11/21 01/24/23 aerosol inhaler shortness of breath or wheezing #1 unit compr.stocking,knee,long,large ##1 03/13/22 01/24/23 rivaroxaban 15 mg tablet (Xarelto) 15 mg PO DAILY #90 tabs 05/15/22 01/24/23 metoprolol tartrate 100 mg tablet 200 mg PO BID #360 tab-caps 07/10/22 01/24/23 amlodipine 5 mg tablet 5 mg PO DAILY #90 tab-caps 09/16/22 01/24/23 bumetanide 1 mg tablet 1 mg PO DAILY #90 tabs 09/16/22 01/24/23 doxazosin 2 mg tablet 2 mg PO DAILY #90 tab-caps 09/16/22 01/24/23 ferrous gluconate 324 mg (38 mg 324 mg PO DAILY #90 tabs 09/16/22 01/24/23 iron) tablet losartan 100 mg tablet 100 mg PO DAILY #90 tabs 09/16/22 01/24/23 omeprazole 20 mg capsule,delayed 20 mg PO DAILY #90 tab-caps 09/16/22 01/24/23 release simvastatin 20 mg tablet 10 mg PO DAILY #45 tab-caps 22 01/24/23 Previous Rx's Medication Instructions Recorded albuterol sulfate 90 mcg/actuation 2 puff inhalation QID PRN 09/11/21 aerosol inhaler shortness of breath or wheezing #1 unit compr.stocking,knee,long,large ##1 03/13/22 rivaroxaban 15 mg tablet (Xarelto) 15 mg PO DAILY #90 tabs 05/15/22 metoprolol tartrate 100 mg tablet 200 mg PO BID #360 tab-caps 07/10/22 amlodipine 5 mg tablet 5 mg PO DAILY #90 tab-caps 09/16/22 bumetanide 1 mg tablet 1 mg PO DAILY #90 tabs 09/16/22 doxazosin 2 mg tablet 2 mg PO DAILY #90 tab-caps 09/16/22 ferrous gluconate 324 mg (38 mg 324 mg PO DAILY #90 tabs 09/16/22 iron) tablet losartan 100 mg tablet 100 mg PO DAILY #90 tabs 09/16/22 omeprazole 20 mg capsule,delayed 20 mg PO DAILY #90 tab-caps 09/16/22 release simvastatin 20 mg tablet 10 mg PO DAILY #45 tab-caps 09/16/22 Allergies Allergy/AdvReac Type Severity Reaction Status Date / Time No Known Allergies Allergy Verified 01/24/23 03:06 General Stated Complaint: Dizzy/Sync VAL: 2 PFSH All Active Problems (Updated 01/24/23 @ 04:51 by Mckay Iraheta MD) Acute non-ST elevation myocardial infarction (NSTEMI) (Acute) Dizziness (Acute) Diaphoresis (Acute) Back pain (Acute ~08/2022) PT JANINE (obstructive sleep apnea) (Chronic ~2007) 01/01/22 F/U Sleep Clinic - new cpap supplies, f/u in 2 years Iron deficiency anemia (Acute ~11/2021) 12/12/21 gastric polyps (removed during endoscopy) by Dr Valenzuela; repeat EGD 2022 Hypertension (Chronic) Atrial fibrillation with RVR (Acute 12/15/14) Chronic anticoagulation (Chronic) Chronic kidney disease (CKD) (Chronic) Impaired fasting glucose (Chronic) GERD (gastroesophageal reflux disease) (Chronic) Hyperlipidemia (Chronic) Venous insufficiency (Chronic) Compression stockings + Bumex Migraine without aura (Acute 02/10/12) Magnesium Benign prostatic hypertrophy (Chronic) Doxazosin Obesity (Chronic) Hypomagnesemia (Chronic 12/15/14) Magnesium supplementation Medical History (Updated 01/24/23 @ 04:51 by Mckay Iraheta MD) Left sided sciatica Polyp, stomach (~12/12/21) 12/12/21 removed during endoscopy by Dr Valenzuela (waiting on pathology) SARS-CoV-2 positive (~04/30/22) Surgical History Colonoscopy - IV Sedation (09/07/04) Excision, Pilonidal Cyst (10/27/1957) fx left lower leg 1953 gallbladder (01/28/13) H/O colonoscopy (~12/12/21) H/O endoscopy (~12/12/21) 12/12/21 Endoscopy w stomach polyps removed ( Dr Valenzuela) Family History Father , old age/longevity. 93 yo. No problems noted. Mother , 88 yo No problems noted. 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 Current gender identity: male What is your relationship status?: Panel score (0-1 are the most socially isolated patients): 1 What type of physical activity do you participate in: walking Duration: 15-30 minutes/day Frequency: 3-4 times per week Seatbelt use: always Drive intox or ride w/intox motor bus driver: No Working smoke detector in home: Yes Fire extinguisher in home: Yes Carbon monox detector in home: Yes Do you feel safe at home: Yes Do you feel safe in your relationship?: Yes Exam Narrative Exam Narrative: General: Uncomfortable and chronically ill-appearing in no acute distress speaking in complete sentences. Head: Normocephalic, atraumatic Ear, nose, mouth, throat: Grossly normal inspection. Normal voice, handling secretions normally. Neck: Trachea midline. Cardiovascular: Well-perfused distal extremities. Respiratory: Nonlabored respiration. Clear lungs bilaterally Gastrointestinal: Nondistended abdomen. Soft nontender abdomen. Musculoskeletal: No significant lower extremity pitting edema. Moving all 4 extremities spontaneously. Skin: Normal for age and race, grossly normal temperature and turgor. No acute rash. Neurologic: Alert and appropriate, no apparent acute deficits. Cranial nerves II through XII intact grossly. No dysmetria. No dysdiadochokinesia. No pronator drift. 5 out of 5 bilateral upper and lower motor strength. Negative Romberg. Psychiatric: Mood and manner are appropriate. Grooming and personal hygiene are appropriate. Course Vital Signs Vital signs: Vital Signs Temperature 36.1 C L 01/24/23 03:00 Pulse 86 01/24/23 03:00 Respiratory Rate 12 01/24/23 03:00 Blood Pressure 173/80 H 01/24/23 03:00 Pulse Oximetry 97 01/24/23 03:00 Temperature 36.1 C L 01/24/23 03:00 Temperature Source Tympanic 01/24/23 03:00 Pulse 86 01/24/23 03:00 Respiratory Rate 18 01/24/23 03:06 Respiratory Effort Normal 01/24/23 03:06 Respiratory Depth Normal 01/24/23 03:06 Respiratory Pattern Normal 01/24/23 03:06 Blood Pressure 173/80 H 01/24/23 03:00 Blood Pressure Position Supine 01/24/23 03:00 Pulse Oximetry 97 01/24/23 03:00 Oxygen Delivery Method Room Air 01/24/23 03:00 Oxygen Flow Rate 0 01/24/23 03:00 Pain Level 0 01/24/23 03:00
[2023-01-24] MEDS: Meclizine 25 MG TAB PO (03:20)
[2023-01-24 03:21] LABS: Abs Immature Grans 0.07 10^3/uL (0.0-0.06); Absolute Basophil Count 0.08 10^3/uL (0.0-0.2); Absolute Eosinophil Count 0.35 10^3/uL (0.0-0.7); Absolute Lymphocyte Count 1.36 10^3/uL (1.2-3.4); Basophils % 0.6; Eosinophils % 2.7; HCT 47.9 % (40.0-50.0); HGB 15.9 g/dL (13.5-17.5); Immature Grans % 0.5; Lymphocytes % 10.4; MCH 29.2 pg (27.0-33.0); MCHC 33.2 % (32.0-36.0); MCV 88 fL (80-95); Monocytes % 7.3; Neutrophils % 78.5; Platelet Count 253 10^3/uL (130-400); RBC 5.44 10^6/uL (4.36-5.78); RDW 14.1 % (11.8-14.1); RDW-SD 45.4 fL; WBC 13.08 10^3/uL (4.4-10.8)
[2023-01-24 03:23] LABS: Absolute Monocyte Count 0.95 10^3/uL (0.1-0.8); Absolute Neutrophil Count 10.27 10^3/uL (1.2-6.7)
--- NOTE | 2023-01-24 03:30 | RT.EKG_ITS ---
APPROVED REPORT Exam: Resting ECG Reason for Exam: Dizziness Patient Location: E HR:63 bpm ECG Measurements Heart Rate 63 AXIS CO [id number] P [id number] QRSd 109 QRS 42 QT 433 T 45 QTc 442 Conclusion Atrial fibrillation...V-rate 47- 74, irreg A-activity Incomplete left bundle branch block...QRSd>110mS, terminal axis(-90,-1) Rate controlled atrial fibrillation at a rate of 63 with incomplete left bundle branch block. Compar ed to prior dated earlier this evening QTc has improved. Rate controlled atrial fibrillation is pers istent. No acute injury pattern.
[2023-01-24 03:40] LABS: ALT 31 U/L (16-63); AST 23 U/L (15-37); Albumin 3.6 g/dL (3.4-5.0); Alkaline Phosphatase 165 U/L (46-116); Anion Gap 12.7 mmol/L (3-11); BUN 23 mg/dL (7-18); Bilirubin, Total 0.9 mg/dL (0.2-1.0); CO2 25.3 mmol/L (21.0-32.0); CREATININE 1.6 mg/dL (0.70-1.30); Calcium 9.1 mg/dL (8.5-10.1); Chloride 101 mmol/L (98-107); Estimated GFR 43.56 (mL/min/1.73m2); Glucose 173 mg/dL (74-106); Potassium 3.2 mmol/L (3.5-5.1); Sodium 139 mmol/L (136-145); Total Protein 8.5 g/dL (6.4-8.2)
[2023-01-24 03:43] LABS: Troponin I 475 ng/L (<or=60)
[2023-01-24] MEDS: Aspirin 325 MG TAB PO (04:01)
[2023-01-24 04:15] LABS: INR 1.1 (0.9-1.1); PTT Activated 27.5 sec (21.5-31.9); Prothrombin Time 11.6 sec (9.3-11.0)
--- NOTE | 2023-01-24 04:15 | DI.RAD_ITS ---
Exam(s) XR PORTABLE CHEST AP EXAM: XR PORTABLE CHEST AP CLINICAL HISTORY: NSTEMI TECHNIQUE: 2D digital imaging was performed. COMPARISON: CR XR CHEST 2V PA LATERAL from 08/06/2021 FINDINGS: Leads overlie the chest. LUNGS: Clear. No pleural abnormality seen. HEART: Enlarged, unchanged. AORTA: Normal diameter. BONES: Small enchondroma right humeral head Soft tissues: Unremarkable. IMPRESSION: No acute findings. DATA REPOSITORY: RADIATION DOSE DELIVERED:
[2023-01-24 04:23] LABS: Source Nasal/Nares
[2023-01-24] MEDS: Potassium Chloride 20 MEQ TABCR ×2 (04:37)
[2023-01-24 04:53] LABS: COVID-19 PCR Negative (Negative)
--- NOTE | 2023-01-24 05:15 | DI.VRAD_ITS ---
PROCEDURE INFORMATION: Exam: XR Chest Exam date and time: 01/24/2023 4:10 AM Age: 77 years old Clinical indication: Other: Nstemi TECHNIQUE: Imaging protocol: Radiologic exam of the chest. Views: 1 view. COMPARISON: CR XR CHEST 2V PA LATERAL 08/06/2021 8:30 AM FINDINGS: Limitations: Lordotic projection. Lungs: There is no consolidation or pulmonary edema. The pulmonary vasculature does not appear significantly engorged. Pleural spaces: Unremarkable. No pleural effusion or pneumothorax. Heart/Mediastinum: Heart size is within normal limits for portable AP technique and lordotic projection. Cardiomediastinal contours are satisfactory. Bones/joints: No acute osseous abnormality. Degenerative changes. Incidental 1.7 cm suspected enchondroma in the right humeral head. IMPRESSION: No acute cardiopulmonary abnormality. Dictated and Authenticated by: Anna Marie Gant MD. Ordering:ELO Bashir MD
[2023-01-24] MEDS: Doxazosin 1 MG TAB PO (06:46)
[2023-01-24] MEDS: Metoprolol CR 100 MG TABCR PO (06:46)
[2023-01-24] MEDS: Losartan 50 MG TAB PO (06:46)
[2023-01-24] MEDS: amLODIPine 5 MG TAB PO (06:46)
[2023-01-24 06:55] LABS: Troponin I 339 ng/L (<or=60)
[2023-01-24] MEDS: Acetaminophen 500 MG TAB 1000 MG PO (07:13)
== END 2023-01-24 07:22 | disposition short-term general hospital (02) ==
PROVIDERS: Emergency Provider Emergency Medicine; PCP Nurse Practitioner Adult Health
DX: I21.4 Non-ST elevation (NSTEMI) myocardial infarction (principal); R61 Generalized hyperhidrosis; R42 Dizziness and giddiness; I12.9 Hypertensive chronic kidney disease with stage 1 through stage 4 chronic kidney disease, or unspecified chronic kidney disease; N18.9 Chronic kidney disease, unspecified; I48.91 Unspecified atrial fibrillation; E87.6 Hypokalemia; R73.9 Hyperglycemia, unspecified; D72.829 Elevated white blood cell count, unspecified; R74.8 Abnormal levels of other serum enzymes; Z79.01 Long term (current) use of anticoagulants; Z20.822 Contact with and (suspected) exposure to COVID-19; Z86.16 Personal history of COVID-19
CPT/HCPCS: 36415; 80053; 87635; 93005; 96365; 96366; 99285; 71045; 83735; 84484; 85025; 85610; 85730; 93010

== ENCOUNTER 2023-03-10 02:04 | Outpatient (CLI) | payer MEDICARE, OTHER, SELFPAY ==
[2023-03-10 10:16] LABS: Abs Immature Grans 0.04 10^3/uL (0.0-0.06); Absolute Basophil Count 0.07 10^3/uL (0.0-0.2); Absolute Eosinophil Count 0.46 10^3/uL (0.0-0.7); Absolute Lymphocyte Count 1.18 10^3/uL (1.2-3.4); Absolute Monocyte Count 0.91 10^3/uL (0.1-0.8); Absolute Neutrophil Count 6.75 10^3/uL (1.2-6.7); Basophils % 0.7; Eosinophils % 4.9; HCT 42.9 % (40.0-50.0); HGB 14.4 g/dL (13.5-17.5); Immature Grans % 0.4; Lymphocytes % 12.5; MCHC 33.6 % (32.0-36.0); MCV 89 fL (80-95); Monocytes % 9.7; Neutrophils % 71.8; Platelet Count 253 10^3/uL (130-400); RDW 13.9 % (11.8-14.1); RDW-SD 45.7 fL; WBC 9.41 10^3/uL (4.4-10.8)
[2023-03-10 10:57] LABS: Hemoglobin A1C 5.4 % (<5.7)
[2023-03-10 11:02] LABS: Anion Gap 10.1 mmol/L (3-11); BUN 27 mg/dL (7-18); CO2 27.9 mmol/L (21.0-32.0); CREATININE 1.6 mg/dL (0.70-1.30); Calcium 8.4 mg/dL (8.5-10.1); Chloride 106 mmol/L (98-107); Estimated GFR 43.56 (mL/min/1.73m2); Ferritin 86 ng/mL (26-388); Glucose 109 mg/dL (74-106); Potassium 3.7 mmol/L (3.5-5.1); Sodium 144 mmol/L (136-145)
== END 2023-03-10 02:05 | disposition home or self-care (01) ==
LOC: LBO 02:04
PROVIDERS: PCP Nurse Practitioner Adult Health; Referring Provider Nurse Practitioner Adult Health; Visit Provider Nurse Practitioner Adult Health
DX: N18.9 Chronic kidney disease, unspecified (principal); R73.01 Impaired fasting glucose; D50.9 Iron deficiency anemia, unspecified; I48.91 Unspecified atrial fibrillation; Z79.01 Long term (current) use of anticoagulants; I87.2 Venous insufficiency (chronic) (peripheral)
CPT/HCPCS: 36415; 80048; 82728; 83036; 85025

== ENCOUNTER → 2023-05-14 10:27 | Outpatient (BNVA) | payer MEDICARE, OTHER, SELFPAY | PROVIDERS: PCP Nurse Practitioner Adult Health; Referring Provider Nurse Practitioner Adult Health; Visit Provider Psychiatry & Neurology Neurology | DX: I69.398 Other sequelae of cerebral infarction (principal); R26.89 Other abnormalities of gait and mobility; I48.91 Unspecified atrial fibrillation; I12.9 Hypertensive chronic kidney disease with stage 1 through stage 4 chronic kidney disease, or unspecified chronic kidney disease; N18.9 Chronic kidney disease, unspecified | CPT/HCPCS: 99215 ==

== ENCOUNTER → 2023-07-16 13:36 | Outpatient (BNVA) | payer MEDICARE, OTHER, SELFPAY | PROVIDERS: PCP Nurse Practitioner Adult Health; Referring Provider Nurse Practitioner Adult Health; Visit Provider Psychiatry & Neurology Neurology | DX: I69.398 Other sequelae of cerebral infarction (principal); R26.89 Other abnormalities of gait and mobility; I48.91 Unspecified atrial fibrillation; Z79.01 Long term (current) use of anticoagulants; I65.22 Occlusion and stenosis of left carotid artery; N18.9 Chronic kidney disease, unspecified | CPT/HCPCS: 99214 ==

== ENCOUNTER → 2023-07-22 01:22 | Outpatient (CLI) | payer MEDICARE, OTHER, SELFPAY ==
--- NOTE | 2023-07-22 07:15 | DI.US_ITS ---
Exam(s) US CAROTID EXAM: US CAROTID CLINICAL HISTORY: Left carotid stenosis,cva.[id number]. TECHNIQUE: Ultrasound carotids performed using grayscale, color-flow, and spectral Doppler imaging. COMPARISON: No exams were available for comparison FINDINGS: RIGHT CAROTID ARTERY: Plaque: Mild calcific plaque seen in the carotid bulb and proximal and mid internal carotid artery. Velocity elevation: None. LEFT CAROTID ARTERY: Plaque: Mild calcific plaque seen in the carotid bulb and proximal and mid internal carotid artery. Velocity elevation: None. VERTEBRAL ARTERIES: Antegrade flow. Measurements: R Bulb: 63.5cm/s PS / 14.2cm/s ED R CCA: 67.4cm/s PS / 10.3cm/s ED R ECA: 111.2cm/s PS / 0cm/s ED R ICA Prox: 38.4cm/s PS / 9.8cm/s ED R ICA Mid: 48.2cm/s PS / 9.8cm/s ED R ICA Distal: 58.1cm/s PS /14.2cm/s ED R Vert: 43.2cm/s PS / 11.2cm/s ED R SVR: 0.9 R DVR: 1.4 L Bulb: 61.1cm/s PS / 11.9cm/s ED L CCA: 74.2cm/s PS / 15.2cm/s ED L ECA: 109.3cm/s PS / 5.3cm/s ED L ICA Prox: 51.3cm/s PS / 13cm/s ED L ICA Mid: 72.2cm/s PS / 18.3cm/s ED L ICA Distal: 78.2cm/s PS / 20.2cm/s ED L Vert: 46.1cm/s PS / 16.4cm/s ED L SVR: 1.1 L DVR: 1.3 IMPRESSION: No evidence for hemodynamically significant carotid stenosis. Criteria for Carotid Stenosis: Normal: ICA PSV <125 cm/s no plaque or intimal thickening is visible. <50% stenosis: ICA PSV <125 cm/s and plaque or intimal thickening is visible. 50-69% stenosis: ICA PSV is 125-250 cm/s and plaque is visible. >70% stenosis to near occlusion: ICA PSV >250 cm/s with visible plaque and luminal narrowing. DATA REPOSITORY:
== END ==
PROVIDERS: PCP Nurse Practitioner Adult Health; Visit Provider Psychiatry & Neurology Neurology
DX: I63.9 Cerebral infarction, unspecified
CPT/HCPCS: 93880

== ENCOUNTER 2023-12-19 01:33 | Outpatient (CLI) | payer MEDICARE, OTHER, SELFPAY ==
[2023-12-19 18:27] LABS: PSA, Diagnostic 2.1 ng/mL (<=6.5)
== END 2023-12-19 01:34 | disposition home or self-care (01) ==
LOC: LBO 01:33
PROVIDERS: PCP Nurse Practitioner Adult Health; Referring Provider Emergency Medicine; Visit Provider Emergency Medicine
DX: N40.0 Benign prostatic hyperplasia without lower urinary tract symptoms (principal)
CPT/HCPCS: 36415; 84153

== ENCOUNTER 2023-12-29 14:46 | Outpatient (CLI) | payer MEDICARE, OTHER, SELFPAY ==
[2023-12-29 12:49] LABS: D-Dimer 721 ng/mlFEU (<500)
[2023-12-29 15:59] LABS: Estimated GFR 33.12 (mL/min/1.73m2)
== END 2023-12-29 14:47 | disposition home or self-care (01) ==
PROVIDERS: PCP Nurse Practitioner Adult Health; Visit Provider Family Medicine
DX: R06.00 Dyspnea, unspecified (principal)
CPT/HCPCS: 36415; 82565; 85379

== ENCOUNTER → 2023-12-29 15:00 | Outpatient (CLI) | payer MEDICARE, OTHER, SELFPAY ==
--- NOTE | 2023-12-29 12:32 | DI.RAD_ITS ---
Exam(s) XR CHEST 2V PA LATERAL EXAM: XR CHEST 2V PA LATERAL CLINICAL HISTORY: MARTINES, R06.00 TECHNIQUE: 2D digital imaging was performed. Two views. COMPARISON: CR,XR XR PORTABLE CHEST AP from 01/24/2023 FINDINGS: HEART: Enlarged, unchanged. Aorta: Not dilated. PULMONARY VASCULATURE: Normal prominent. LUNGS: Mildly increased interstitial densities greater at the lung bases, suspicious for CHF. PLEURAL SPACE: Small bilateral pleural effusions. No pneumothorax. BONE:Unremarkable for age. Soft tissues: Unremarkable. IMPRESSION: Cardiomegaly and mild CHF. DATA REPOSITORY: RADIATION DOSE DELIVERED:
--- NOTE | 2023-12-29 14:45 | DI.CT_ITS ---
Exam(s) CT CHEST PE CTA EXAM: CT CHEST PE CTA CLINICAL HISTORY: Increased dyspnea, elevated D-dimer,CHF,i50.9,? PE. TECHNIQUE: Imaging Protocol: Axial CT angiography was performed with multi-slice acquisition and mu lti-planar and/or 3D reconstructions. CONTRAST MATERIAL: Intravenous: Omnipaque 350 contrast volume:80 mL COMPARISON: CR XR CHEST 2V PA LATERAL from 12/29/2023 FINDINGS: Tracheobronchial tree: Patent where visualized. Pulmonary parenchyma: There are moderate size bilateral pleural effusions with subjacent infiltrates which may represent atelectasis or pneumonia. No architectural distortion. Pulmonary Arteries: Due to the patient motion subsegmental pulmonary artery evaluation is suboptimal. No large central pulmonary embolism is seen. Mediastinum and Sherly: No dominant adenopathy or fluid collection. The esophagus is unremarkable. Visualized thyroid gland: The left lobe of the thyroid gland is enlarged. There are at least 2 thyro id nodules present. The largest is seen in the inferior pole and measures 2.2 x 3.6 cm. Nonemergent thyroid ultrasound is recommended for further evaluation. Pleura: No pneumothorax. Heart: Cardiomegaly. Coronary artery calcification and/or stents. No pericardial effusion. Aorta: Thoracic aorta non-dilated. No evidence of dissection. Atherosclerotic calcification. Upper abdomen: The liver has a lobulated contour suggesting hepatic cirrhosis. Status post cholecys tectomy. Soft tissues: Mild gynecomastia. Bones: Within normal limits for the patient's age. IMPRESSION: 1. No evidence of pulmonary embolism within the limits of the examination, thoracic aortic dissection or aneurysm. 2. Moderate size bilateral pleural effusion and subjacent infiltrates which may represent atelectasis or pneumonia. 3. Left thyroid nodules. Nonemergent thyroid ultrasound is recommended for further evaluation. RADIATION DOSE DELIVERED: 724.01mGy.cm Total DLP DATA REPOSITORY: All CT scans at this facility are submitted to the National Radiology Data Registry (NRDR) Dose Index Registry (DIR) with the [employer] (A[employer]). RADIATION OPTIMIZATION: All CT scans at this facility use at least one of these dose optimization te chniques: automated exposure control; mA and/or kV adjustment per patient size (includes targeted exa ms where dose is matched to clinical indication); or iterative reconstruction.
[2023-12-29] MEDS: Normal Saline - Diluent 50 ML VIAL IJ (16:19)
[2023-12-29] MEDS: Omnipaque 350 MG/ML 100 ML BTL IJ (16:19)
== END ==
PROVIDERS: PCP Nurse Practitioner Adult Health; Visit Provider Family Medicine
DX: R06.00 Dyspnea, unspecified (principal); I50.9 Heart failure, unspecified
CPT/HCPCS: 71275; 71046; J3490

== ENCOUNTER 2023-12-29 17:35 | Emergency (ER) | payer MEDICARE, OTHER, SELFPAY ==
[2023-12-29] VITALS (15 sets, daily range): BP systolic 159–184; BP diastolic 70–88; PULSE 60–106; RESP 16–26; TEMP 36.6; O2SAT 88–94
--- NOTE | 2023-12-29 17:45 | RT.EKG_ITS ---
APPROVED REPORT Exam: Resting ECG Reason for Exam: SOB Patient Location: E HR:67 bpm ECG Measurements Heart Rate 67 AXIS DC [id number] P [id number] QRSd 167 QRS 119 QT 458 T 10 QTc 486 Conclusion Atrial fibrillation...? atrial activity IVCD, consider LBBB...QRSd>120, notch/slur R I aVL V5-6 ST elevation secondary to IVCD...Multiple VCG criteria Complete LBBB more pronounced vs incomplete on 01/24/23
--- NOTE | 2023-12-29 18:27 | ED.GENADUL_ITS ---
Discharge Plan Disposition Patient Disposition: Home Discharge Details Clinical Impression: Pulmonary edema Primary Care Provider: Lianet Muñoz ED Provider: Yolande Rios Home Meds and New Rx's Prescriptions: No Action bumetanide 1 mg tablet 1 mg PO BID Qty: 90 3RF Rx Instructions: Dose decrease 09/16/22 (DME) compr.stocking,knee,long,large Misc See Rx Instructions .ROUTE .MEDSUPPLY Qty: 1 12RF Rx Instructions: As directed amlodipine 10 mg tablet 10 mg PO DAILY Qty: 90 3RF albuterol sulfate 90 mcg/actuation HFA aerosol inhaler 2 puff inhalation QID PRN (Reason: shortness of breath or wheezing) Qty: 1 2RF Rx Instructions: Use 2 puffs in the AM then up to 3 more times a day as needed. Use with a spacer. magnesium oxide 400 MG tablet 400 mg PO BID Qty: 60 ferrous gluconate 324 mg (38 mg iron) tablet 324 mg PO DAILY Qty: 90 3RF Rx Instructions: Anemia Xarelto 15 mg tablet 15 mg PO DAILY Qty: 90 3RF Rx Instructions: must administer with evening meal losartan 100 mg tablet 100 mg PO DAILY Qty: 90 3RF doxazosin 2 mg tablet 2 mg PO DAILY Qty: 90 3RF omeprazole 20 mg capsule,delayed release(DR/EC) 20 mg PO DAILY Qty: 90 3RF simvastatin 20 mg tablet 10 mg PO DAILY Qty: 45 3RF metoprolol tartrate 100 mg tablet See Rx Instructions .ROUTE .COMPLEX Qty: 360 3RF Dose Instruction: TAKE TWO TABLETS BY MOUTH TWICE A DAY Rx Instructions: TAKE TWO TABLETS BY MOUTH TWICE A DAY Discharge Instructions Instructions: Pulmonary Edema (ED) Additional Instructions: Increase your Bumex to 1 mg twice a day as instructed by your primary care doctor. Call your doctor tomorrow for recheck. You may need an echo and or additional evaluation to be done as an outpatient. Return to ED for crushing chest pain, severe difficulty breathing at rest, any other concerns. Discharge Data Discharge Date/Time-TO BE ENTERED AT DEPARTURE: 12/29/23 19:49 HPI General Date/Time Provider Initiated Documentation: 12/29/23 17:46 . HPI Narrative: This 78-year-old male patient presents with a chief complaint of difficulty breathing has been ongoing for the past week. Patient states this is mostly on exertion and has been gradually worsening. Called his PCP to be seen this morning and got into the office. They did a D-dimer on him which was positive and sent him for a CT scan. CAT scan showed moderate pleural effusions with possible subadjacent infiltrate. He had no PE. The patient has a history of congestive heart failure and earlier today had mild effusions on chest x-ray. He told his PCP that he was maybe having a little bit of wheezing and nasal congestion over the weekend and thought he needed a renewal on his albuterol. The patient does have a long history of atrial fibrillation's and is anticoagulated for this. He is taking his medicines as prescribed and thus should be at low risk for PE. Patient has no fever or other URI symptoms. He is not coughing a lot. He has no chest pain. There is been no fever or chills. He has no belly pain, nausea, vomiting, diarrhea, or dysuria. Chronically swollen legs and wears GA stockings that he says he has used for the last 25 years. There is no change in his legs. He has no calf pain. There is no headache, sore throat, funny rashes, stiff neck, weakness, or dizziness. Related Data Home Medications Medication Instructions Recorded Confirmed magnesium oxide 400 mg (241.3 mg 400 mg PO BID #60 tabs 12/23/14 12/29/23 magnesium) tablet compr.stocking,knee,long,large ##1 03/13/22 12/29/23 ferrous gluconate 324 mg (38 mg 324 mg PO DAILY #90 tabs 03/25/23 12/29/23 iron) tablet doxazosin 2 mg tablet 2 mg PO DAILY #90 tab-caps 07/08/23 12/29/23 losartan 100 mg tablet 100 mg PO DAILY #90 tabs 07/08/23 12/29/23 omeprazole 20 mg capsule,delayed 20 mg PO DAILY #90 tab-caps 07/08/23 12/29/23 release rivaroxaban 15 mg tablet (Xarelto) 15 mg PO DAILY #90 tabs 07/08/23 12/29/23 simvastatin 20 mg tablet 10 mg (1/2 x 20 mg) PO DAILY #45 07/08/23 12/29/23 tab-caps metoprolol tartrate 100 mg tablet See Rx Instructions .Route 08/16/23 12/29/23 .COMPLEX #360 tabs albuterol sulfate 90 mcg/actuation 2 puff inhalation QID PRN 12/26/23 12/29/23 aerosol inhaler shortness of breath or wheezing #1 unit amlodipine 10 mg tablet 10 mg PO DAILY #90 tabs 12/26/23 12/29/23 bumetanide 1 mg tablet 1 mg PO BID #90 tabs 12/29/23 12/29/23 Previous Rx's Medication Instructions Recorded compr.stocking,knee,long,large ##1 03/13/22 ferrous gluconate 324 mg (38 mg 324 mg PO DAILY #90 tabs 03/25/23 iron) tablet doxazosin 2 mg tablet 2 mg PO DAILY #90 tab-caps 07/08/23 losartan 100 mg tablet 100 mg PO DAILY #90 tabs 07/08/23 omeprazole 20 mg capsule,delayed 20 mg PO DAILY #90 tab-caps 07/08/23 release rivaroxaban 15 mg tablet (Xarelto) 15 mg PO DAILY #90 tabs 07/08/23 simvastatin 20 mg tablet 10 mg (1/2 x 20 mg) PO DAILY #45 07/08/23 tab-caps metoprolol tartrate 100 mg tablet See Rx Instructions .Route 08/16/23 .COMPLEX #360 tabs albuterol sulfate 90 mcg/actuation 2 puff inhalation QID PRN 12/26/23 aerosol inhaler shortness of breath or wheezing #1 unit amlodipine 10 mg tablet 10 mg PO DAILY #90 tabs 12/26/23 bumetanide 1 mg tablet 1 mg PO BID #90 tabs 12/29/23 Allergies Allergy/AdvReac Type Severity Reaction Status Date / Time No Known Allergies Allergy Verified 12/29/23 18:22 General Stated Complaint: SOB VAL: 3 Review of Systems Narrative: See HPI Exam Const General: no acute distress, well developed, well groomed and not in acute distress Nutritional Appearance: well nourished Orientation: alert and oriented x3 HENMT Head: normocephalic and atraumatic Ears: external ears normal Mouth: moist mucous membranes Eyes Conjunctivae: conjunctivae normal Neck Neck: full ROM and supple Chest Chest: normal inspection of the chest Resp Effort & Inspection: normal respiratory effort and able to speak in complete sentences Auscultation: other (Decreased air movement bilaterally but no evidence of wheezing or rales) Cardio Rate: regular rate Rhythm: abnormal rhythm (Irregularly irregular) Heart Sounds: no murmurs and no rubs GI Inspection: normal to inspection (Though obese) Palpation: soft, nontender and other (non distended) Auscultation: normal bowel sounds Skin General skin exam: no rashes or lesions noted and other (pink, warm, dry) Neuro General: patient alert, patient awake and patient oriented x3 Speech: speech normal Motor: other (ROGER) Sensory Exam: no sensory deficits noted Extrem General: normal to inspection, full ROM and pedal edema present Psych Mental Status: mental status grossly normal Speech and Movement: speech and movement normal Affect: normal affect Course Vital Signs Vital signs: Vital Signs Temperature 36.6 C 12/29/23 17:39 Pulse 65 12/29/23 17:39 Respiratory Rate 20 12/29/23 17:39 Pulse Oximetry 92 12/29/23 17:39 Temperature 36.6 C 12/29/23 17:39 Temperature Source Oral 12/29/23 17:39 Pulse 65 12/29/23 17:39 Respiratory Rate 20 12/29/23 17:39 Respiratory Effort Normal 12/29/23 17:42 Pulse Oximetry 92 12/29/23 17:39 Oxygen Delivery Method Room Air 12/29/23 17:39 Oxygen Flow Rate 0 12/29/23 17:39 Pain Level 0 12/29/23 17:39 Medical Decision Making We have given the patient 20 mg of IV Lasix in the ED to get a little bit of fluid off. His doctor advised him to increase his Bumex from 1 mg daily to 1 mg twice daily. He has plenty of this at home. Have asked him to call his PCP tomorrow to make a follow-up appointment. I do not see that he has had an echo recently and he may need additional workup. Patient knows to return for shortness of breath at rest, severe chest pain, any other concerns. 1930. Patient and his were updated on test results. As it turned out, he has an echocardiogram scheduled for 10 days from now. He will take his Bumex 2 mg in the morning as this is easier due to all the peeing. He was out of bed dressing in NAD several minutes later and I listened to his lings again--slight rub, diminished at bases. He is non toxic appearing on d/c. Medical Records Medical records reviewed: Yes I reviewed the patient's medical records. Imaging Data Radiologic Study: Imaging: CT Scan (The patient's CT chest PE CTA from earlier today showed no evidence of a pulmonary embolism. There is no thoracic aortic dissection or aneurysm. The patient did have moderate-sized bilateral pleural effusion and subjacent infiltrates which could represent atelectasis or pneumonia. No evidence of ) Lab Data Lab results reviewed: Yes I reviewed the patient's lab results. Lab results narrative: Patient is mildly anemic with a BUN and creatinine of 36 and 2. His BNP was 3518. This was increased from October 2015 when it was 168. Prior to that it was higher. His troponin today is less than 50. The remainder of his labs are really unremarkable. Labs: FLUVID negative. 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 Goal LDL <70. Goal SBP 120-140. Goal A1c <7. Monitor CrCl (if <15 should be stopped with note that <30 the drug has not been studied). Back pain (Acute ~08/2022) PT JANINE (obstructive sleep apnea) (Chronic ~2007) 01/01/22 F/U Sleep Clinic - new cpap supplies, f/u in 2 years Iron deficiency anemia (Acute ~11/2021) 12/12/21 gastric polyps (removed during endoscopy) by Dr Valenzuela; repeat EGD 2022 Hypertension (Chronic) Atrial fibrillation with RVR (Acute 12/15/14) Chronic anticoagulation (Chronic) Chronic kidney disease (CKD) (Chronic) Impaired fasting glucose (Chronic) GERD (gastroesophageal reflux disease) (Chronic) Hyperlipidemia (Chronic) Venous insufficiency (Chronic) Compression stockings + Bumex Migraine without aura (Acute 02/10/12) Magnesium Benign prostatic hypertrophy (Chronic) Doxazosin Obesity (Chronic) Hypomagnesemia (Chronic 12/15/14) Magnesium supplementation Medical History Left sided sciatica SARS-CoV-2 positive (~04/30/22) Polyp, stomach (~12/12/21) 12/12/21 removed during endoscopy by Dr Valenzuela (waiting on pathology) Surgical History H/O colonoscopy (~12/12/21) H/O endoscopy (~12/12/21) 12/12/21 Endoscopy w stomach polyps removed ( Dr Valenzuela) 01/20/23: Dr. Valenzuela [facility] [place] [facility] [place]: A) antrum: Antrum-type mucosa with mild reactive hyperplasia B). Body of stomach biopsy: Body/fundic type mucosa with parietal cell hyperplasia consistent with PPI effect C). Stomach Polyps: Fragments of hyperplastic polyp. gallbladder (01/28/13) fx left lower leg 1953 Excision, Pilonidal Cyst (10/27/1957) Colonoscopy - IV Sedation (09/07/04) Family History Father , old age/longevity. 93 yo. No problems noted. Mother , 88 yo No problems noted. 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
[2023-12-29 18:54] LABS: Abs Immature Grans 0.04 10^3/uL (0.0-0.06); Absolute Basophil Count 0.07 10^3/uL (0.0-0.2); Absolute Eosinophil Count 0.23 10^3/uL (0.0-0.7); Absolute Lymphocyte Count 0.94 10^3/uL (1.2-3.4); Absolute Monocyte Count 0.86 10^3/uL (0.1-0.8); Absolute Neutrophil Count 8.49 10^3/uL (1.2-6.7); Basophils % 0.7; Eosinophils % 2.2; HCT 36.9 % (40.0-50.0); HGB 11.9 g/dL (13.5-17.5); Immature Grans % 0.4; Lymphocytes % 8.8; MCH 29.1 pg (27.0-33.0); MCHC 32.2 % (32.0-36.0); MCV 90 fL (80-95); MPV 9.7 fL (8.0-11.0); Monocytes % 8.1; Neutrophils % 79.8; Platelet Count 274 10^3/uL (130-400); RBC 4.09 10^6/uL (4.36-5.78); RDW 14.6 % (11.8-14.1); RDW-SD 47.9 fL; WBC 10.63 10^3/uL (4.4-10.8)
[2023-12-29 19:13] LABS: ALT 31 U/L (16-63); AST 19 U/L (15-37); Albumin 3.4 g/dL (3.4-5.0); Alkaline Phosphatase 154 U/L (46-116); Anion Gap 11.1 mmol/L (3-11); BUN 36 mg/dL (7-18); Bilirubin, Total 1.4 mg/dL (0.2-1.0); CO2 25.9 mmol/L (21.0-32.0); Chloride 106 mmol/L (98-107); Estimated GFR 33.12 (mL/min/1.73m2); Glucose 104 mg/dL (74-106); Magnesium 2.3 mg/dL (1.8-2.4); NT-proBNP 3518 pg/mL (<300); Potassium 4.1 mmol/L (3.5-5.1); Sodium 143 mmol/L (136-145); Total Protein 7.9 g/dL (6.4-8.2); Troponin I < 50 ng/L (< or =60)
[2023-12-29 19:26] LABS: COVID-19 PCR Negative (Negative); Influenza A PCR Negative (Negative); Influenza B PCR Negative (Negative); RSV PCR Negative (Negative)
[2023-12-29] MEDS: Furosemide 20 MG/2 ML VIAL IVP (19:28)
[2023-12-29 19:41] LABS: Source Nasopharynx
== END 2023-12-29 19:49 | disposition home or self-care (01) ==
PROVIDERS: Emergency Provider Emergency Medicine; PCP Nurse Practitioner Adult Health
DX: J81.1 Chronic pulmonary edema (principal); I11.0 Hypertensive heart disease with heart failure; I50.9 Heart failure, unspecified; Z11.52 Encounter for screening for COVID-19
CPT/HCPCS: 36415; 71275; 80053; 87637; 93005; 96374; 99284; 71046; 82565; 83735; 83880; 84484; 85025; 85379; 93010; J1941; J3490

== ENCOUNTER → 2024-01-08 01:47 | Outpatient (CLI) | payer MEDICARE, OTHER, SELFPAY ==
--- NOTE | 2024-01-08 15:00 | DI.US_ITS ---
APPROVED REPORT EXAM: Comprehensive 2D, Doppler, and color-flow Echocardiogram Patient Location: Out-Patient Permaculture Designer: Brissa Zhou RDCS (AE) Indications: Uncontrolled HTN, Dilated ascending aorta Other Information Study Quality: Fair. Technically limited study due to body habitus. Conclusion Mild concentric left ventricular hypertrophy. Ejection fraction is 55%. There are no segmental wall motion abnormalities Normal right ventricular size and function Both atria are moderately dilated Aortic valve is mildly sclerotic and probably trileaflet without stenosis or regurgitation Mild mitral annular calcification. Mild to moderate mitral regurgitation Dilated ascending aorta 4.2 cm Wall motion Left Ventricle The left ventricle is normal size. The overall left ventricular systolic function appears normal. Mil d concentric left ventricular hypertrophy. There is normal LV segmental wall motion. There is no vent ricular septal defect visualized. LVEF is 55%. Right Ventricle The right ventricle is normal size. The right ventricular systolic function is normal. Atria Left atrium is moderately dilated. Right atrium is moderately dilated. The interatrial septum is inta ct with no evidence for an atrial septal defect. Aortic Valve The Aortic valve is mildly sclerotic. Aortic valve is probably trileaflet. There is no aortic valvula r stenosis. No aortic regurgitation is present. Mitral Valve Mild mitral annular calcification. No evidence of mitral valve stenosis. Mild to moderate mitral regu rgitation. Tricuspid Valve The tricuspid valve is normal in structure. There is no tricuspid valve stenosis. Mild tricuspid regu rgitation. Unable to assess PA pressure. Pulmonic Valve The pulmonary valve is normal in structure. There is no pulmonic valvular stenosis. Mild to moderate pulmonic regurgitation. Great Vessels The aortic root is normal in size. The ascending aorta is moderately dilated. Aortic arch is not well visualized. IVC is normal in size and collapses >50% with inspiration. Pericardium There is no pericardial effusion. 2D Dimensions IVSD d PLAX 1.31 cm M: 0.6-1.2 Ao Root d 3.51 cm M: 3.1 - 3.7 LVPW d PLAX 1.30 cm M: 0.6 - 1.2 Ao Asc Diam d 4.20 cm M: 2.6 - 3.4 LVID d PLAX 4.89 cm M: 4.2 - 5.8 LVDs 3.50 cm M: 2.5 - 4.0 LV EF Teichholz 54.7 % FS 28.43 % LV EDV (Teich) 112.1 mL LV ESV (Teich) 50.8 mL Auto EF LV EDV A4C 145.1 mL LV EDV A2C 138.8 mL LV EDV BP 141.7 mL LV ESV A4C 65.8 mL LV ESV A2C 62.9 mL LV ESV BP 64.0 mL LVEF(%) A4C 54.7 % LVEF(%) A2C 54.7 % LVEF(%) BP 54.8 % LV SV A4C 79.3 ml LV SV A2C 75.9 ml LV SV BP 77.7 ml LV CO A4C 5.3 L/min LV CO A2C 5.1 L/min LV CO BP 5.2 L/min HR A4C 66.18 BPM HR A2C 66.67 BPM LV EDV Index (BP) LA Volume LA Length A4C 7.2 cm LA Length A2C 6.7 cm LA Area A4C s 30.81 cm2 LA Area A2C s 30.13 cm2 LA Vol A4C A-L 111.96 mL LA Vol A2C A-L 114.80 mL LA Vol Biplane A-L 117.4 mL LA Vol/BSA A4C A-L LA Vol/BSA A2C A-L LA Vol/BSA BP A-L 50.2 mL/m2 LA Vol A4C MOD 103.3 mL LA Vol A2C MOD 106.5 mL LA Vol BP MOD 108.3 mL RA Volume RA Area A4C 20.9 cm2 RA ESV A4C (A-L) 52.1mL RA Vol/BSA A4C A-L RA Length A4C 7.1 cm RA ESV A4C (MOD) 50.2mL LV Diastology MV E' lateral 0.092 (>0.1 m/s) MV E Vmax 1.21 (0.4-1.3 m/s) MV E/E' LAT 13.14 (<14) Aortic Valve AoV Vmax 1.66 m/s LVOT Vmax 1.11 m/s AoV Peak Grad 11.0 mmHg LVOT Peak Grad 4.9 mmHg AoV Area (Vmax) 2.19 cm2 LVOT VTI 0.266 m AoV VTI 0.372 m LVOT Mean Grad 2.9 mmHg AoV Mean Venkat. 1.21 m/s LVOT SV 86.88 mL AoV Mean Grad 6.6 mmHg LVOT Diam s 2.00 cm AoV Area (VTI) 2.33 cm2 Velocity Ratio 0.67 Mitral Valve MV DT 191 (160-240 msec) MR Vmax 1.20 m/s MR VTI 0.364 m MR Peak Grad 5.7 mmHg MR Mean Grad 1.3 mmHg Pulmonary Valve PV Vmax 1.21 (0.5-1.5 m/s) RVOT Vmax 0.77 m/s PV Peak Grad 5.9 mmHg RVOT Peak Gr. 2.4 mmHg PV Mean Venkat 0.82 m/s RVOT VTI 0.143 m PV Mean Grad 3.1 mmHg RVOT Mean Gr. 1.0 mmHg Tricuspid Valve RA Pressure 3.00 mmHg TV S' 0.06 m/s
== END ==
PROVIDERS: PCP Nurse Practitioner Adult Health; Visit Provider Emergency Medicine
DX: I10 Essential (primary) hypertension (principal)
CPT/HCPCS: 93306

== ENCOUNTER → 2024-01-16 00:48 | Outpatient (CLI) | payer MEDICARE, OTHER, SELFPAY ==
--- NOTE | 2024-01-16 07:15 | DI.US_ITS ---
Exam(s) US THYROID EXAM: US THYROID CLINICAL HISTORY: nodule seen on CT--US to characterize,E04.1. TECHNIQUE: Ultrasound thyroid performed using standard protocol. COMPARISON: US US ECHOCARDIOGRAM from 01/08/2024 FINDINGS: The left thyroid lobe is prominent and contain significant nodules. The right thyroid lobe exhibits normal size. RIGHT THYROID LOBE: Measures 1.9 cm AP x 1.6 cm wide x 4.7 cm craniocaudal Contains a single small subtle solid nodule with details as follows: Size: Measures 1.0 x 0.7 x 0.7 cm Composition: Solid-2 points Echogenicity: Isoechoic-1 point Shape: Wider than taller-0 points Margin: Smooth- 0 points Echogenic Foci: None or large comet-tail artifact- 0 points Total Points for this nodule: 3 ACR Ti-Rads Category: TR3 This TR 3 level nodule does not require biopsy as it measures less than 2.5 cm. ISTHMUS: Normal thickness. There are no nodules in the isthmus. LEFT THYROID LOBE: Measures 2.1 cm AP x 2.7 wide x 7.4 cm craniocaudal Contains 2 adjacent nodules. Nodule #1. This is more superior nodule Size: Measures 2.4 x 2.1 x 2.4 cm Composition: Predominately solid-2 points Echogenicity: Isoechoic-1 points Shape: Wider than taller in the transverse plane-0 points Margin: Smooth-0 points Echogenic Foci: None-0 points Total points for this nodule: 3 ACR Ti-Rads Category: 3 This TR 3 level nodule can be followed as it measures just under the 2.5 cm threshold for biopsy of a TR 3 level nodule. Nodule #2. This is the more inferior of the 2 nodules. Size: Measures 4.7 x 3.4 x 3.8 cm Composition: Predominately solid-2 points Echogenicity: Isoechoic-1 point Shape: Wider than taller in the transverse plane-0 points Margin: Smooth-0 points Echogenic Foci: Appears to contain punctate echogenic foci-3 points Total Points for this nodule: 6 ACR Ti-Rads Category: 4 This TR 4 level nodule requires ultrasound-guided FNA as it measures greater than 1.5 cm LYMPH NODES: There is no significant adenopathy. IMPRESSION: 1. Two solid nodules in the left lobe and 1 small nodule in the right lobe. 2. The more inferior of the 2 solid nodules in the left thyroid lobe is a T are 4 level nodule and re quires ultrasound-guided FNA as it measures greater than 1.5 cm 3. There is no significant lymphadenopathy. DATA REPOSITORY:
--- NOTE | 2024-01-16 14:16 | DI.RAD_ITS ---
Exam(s) XR CHEST 2V PA LATERAL EXAM: XR CHEST 2V PA LATERAL CLINICAL HISTORY: interval F/U abnormal CXR CT 12/2023,PLEURAL EFFUSION,J90,R93.89. TECHNIQUE: 2D digital imaging was performed. COMPARISON: CR XR CHEST 2V PA LATERAL from 12/29/2023 FINDINGS: 2 views: Heart size is unchanged. The mediastinum is not widened. There is a pulmonary venous hypertension pattern but there has been decrease in the interstitial pulm onary edema and pleural effusions. No obvious pleural effusions on today's study. Some platelike at electasis is noted in the lateral lung bases, less than previous. IMPRESSION: Some improvement as described above when compared to 12/29/2023. DATA REPOSITORY: RADIATION DOSE DELIVERED:
== END ==
PROVIDERS: PCP Nurse Practitioner Adult Health; Visit Provider Nurse Practitioner Adult Health
DX: J90 Pleural effusion, not elsewhere classified (principal); R93.89 Abnormal findings on diagnostic imaging of other specified body structures; E04.1 Nontoxic single thyroid nodule
CPT/HCPCS: 71046; 76536

== ENCOUNTER → 2024-03-03 02:34 | Outpatient (CLI) | payer MEDICARE, OTHER, SELFPAY ==
--- NOTE | 2024-03-03 07:45 | DI.RAD_ITS ---
Exam(s) XR LUMBAR SPINE COMPLETE EXAM: XR LUMBAR SPINE COMPLETE CLINICAL HISTORY: ? stenosis, low back pain, m54.50. TECHNIQUE: 2D digital imaging was performed of the lumbar spine. Five images were obtained. AP, la teral, right oblique, left oblique and L5-S1 spot views were obtained. COMPARISON: No exams were available for comparison FINDINGS: BONES: No fracture or destructive lesion. Endplate osteophytes are seen at multiple levels of the lum bar spine particularly at L2-L3 and L3-L4. There are degenerative changes of the facets seen in the l umbar spine. DISKS: There is disc space narrowing and a vacuum disc at L2-L3. ALIGNMENT: Lumbar spinal alignment is within normal limits. No spondylolysis or spondylolisthesis. SOFT TISSUE: Surgical clips are seen in the right upper quadrant which may reflect prior cholecystect dayanara. Atherosclerotic calcification is present. IMPRESSION: Moderate degenerative changes seen in the lumbar spine. DATA REPOSITORY: RADIATION DOSE DELIVERED:
== END ==
PROVIDERS: PCP Nurse Practitioner Adult Health; Visit Provider Nurse Practitioner Adult Health
DX: M54.50 Low back pain, unspecified (principal)
CPT/HCPCS: 72110

== ENCOUNTER 2024-03-08 04:43 | Outpatient (CLI) | payer MEDICARE, OTHER, SELFPAY ==
[2024-03-08 11:02] LABS: HCT 34.4 % (40.0-50.0); HGB 11.4 g/dL (13.5-17.5); MCH 29.9 pg (27.0-33.0); MCHC 33.1 % (32.0-36.0); MCV 90 fL (80-95); Platelet Count 240 10^3/uL (130-400); RBC 3.81 10^6/uL (4.36-5.78); RDW 14.3 % (11.8-14.1); RDW-SD 47.4 fL; WBC 8.63 10^3/uL (4.4-10.8)
[2024-03-08 11:16] LABS: Hemoglobin A1C 5.4 % (<5.7)
[2024-03-08 11:25] LABS: Anion Gap 10.5 mmol/L (3-11); BUN 38 mg/dL (7-18); CO2 27.5 mmol/L (21.0-32.0); CREATININE 2.1 mg/dL (0.70-1.30); Calcium 8.8 mg/dL (8.5-10.1); Calculated LDL 67 mg/dL (<100); Chloride 106 mmol/L (98-107); Cholesterol 124 mg/dL (<200); Estimated GFR 31.23 (mL/min/1.73m2); Glucose 102 mg/dL (74-106); HDL Cholesterol 49 mg/dL (40-60); Magnesium 2.2 mg/dL (1.8-2.4); Potassium 3.7 mmol/L (3.5-5.1); Sodium 144 mmol/L (136-145); TSH (W/Ref FT4) 2.17 uIU/mL (0.36-3.74); Triglyceride 43 mg/dL (<150)
== END 2024-03-08 04:44 | disposition home or self-care (01) ==
LOC: LBO 04:43
PROVIDERS: Absent Provider Nurse Practitioner Adult Health; PCP Nurse Practitioner Adult Health; Referring Provider Nurse Practitioner Adult Health; Visit Provider Nurse Practitioner Adult Health
DX: E83.42 Hypomagnesemia (principal); I63.9 Cerebral infarction, unspecified; G47.33 Obstructive sleep apnea (adult) (pediatric); D50.9 Iron deficiency anemia, unspecified; I10 Essential (primary) hypertension; R73.01 Impaired fasting glucose; N18.9 Chronic kidney disease, unspecified; I48.91 Unspecified atrial fibrillation; E04.1 Nontoxic single thyroid nodule
CPT/HCPCS: 36415; 80048; 80061; 85027; 83036; 83735; 84443

== ENCOUNTER → 2024-03-31 02:20 | Outpatient (CLI) | payer MEDICARE, OTHER, SELFPAY ==
--- NOTE | 2024-03-31 11:40 | DI.MRI_ITS ---
Exam(s) MR LUMBAR SPINE WO EXAM: MR LUMBAR SPINE WO CLINICAL HISTORY: ?compression nerves, SC; disc herniation; sp stenosis, M46.26. TECHNIQUE: Multiplanar multisequence MRI of the Lumbar spine was performed. COMPARISON: CT CT CHEST PE CTA from 12/29/2023 CR XR LUMBAR SPINE COMPLETE from 03/03/2024 FINDINGS: Bones: The last intervertebral disc space is designated the L5/S1 level for the numbering purpose of this examination. The vertebral body heights are well maintained. Alignment is satisfactory. Endpla te degenerative signal changes are present particularly at L2-3 and L3-L4. Cord: The conus tip ends at the T12 level. It is of normal size and signal intensity. T12-L1: No disc herniations or bulges are present. No central spinal canal or neural foraminal stenos is. L1-2: No disc herniations or bulges are present. No central spinal canal or neural foraminal stenosis . L2-3: There is a left paracentral disc herniation with extrusion posterior to the L3 vertebral body. It causes left lateral recess stenosis compressing the left L3 nerve root. There are degenerative c hanges of the facets and hypertrophy of the ligamentum flavum causing moderately severe central spina l canal stenosis. Moderately right and moderately severe left neural foraminal stenosis is present. L3-4: There is a diffuse disc bulge. There are hypertrophic changes of the facets and ligamentum fla vum. The findings result in marked central spinal canal stenosis. Moderately severe bilateral neura l foraminal stenosis is present. L4-5: There is a diffuse disc bulge. There are degenerative changes of the facets and hypertrophy of the ligamentum flavum. Findings result in marked central spinal canal stenosis. There is moderatel y severe right and moderate left neural foraminal stenosis. L5-S1: No disc herniations or bulges are present. There are degenerative changes of the facets. No s ignificant central spinal canal stenosis is seen. There is mild bilateral neural foraminal stenosis. Soft tissues: The visualized SI joints and sacrum are well maintained. There is muscular fatty atroph y bilaterally of the gluteal muscles. Bilateral simple renal cysts are present. The largest is seen in the inferior pole of the left kidney. No follow-up is recommended. IMPRESSION: 1. Left paracentral disc herniation at L2-L3 with extrusion posterior to the L3 vertebral body. Ther e is left lateral recess stenosis compressing the left L3 nerve root. There also degenerative change s at this level resulting in moderately severe central spinal canal and bilateral neural foraminal st enosis. 2. Multilevel degenerative changes in the lumbar spine resulting in central spinal canal or neural fo raminal stenosis as described above. The findings are most marked from L2-3 through L4-L5. DATA REPOSITORY:
== END ==
PROVIDERS: PCP Nurse Practitioner Adult Health; Visit Provider Nurse Practitioner Adult Health
DX: M47.26 Other spondylosis with radiculopathy, lumbar region (principal)
CPT/HCPCS: 72148

== ENCOUNTER 2024-04-13 07:35 | Outpatient (CLI) | payer MEDICARE, OTHER, SELFPAY ==
--- NOTE | 2024-04-13 07:30 | RT.EKG_ITS ---
APPROVED REPORT Exam: Resting ECG Reason for Exam: cardiac evaluation Patient Location: O HR:70 bpm ECG Measurements Heart Rate 70 AXIS IN [id number] P [id number] QRSd 93 QRS 77 QT 399 T 29 QTc 431 Conclusion Atrial fibrillation.. Late transition
== END 2024-04-13 07:36 | disposition home or self-care (01) ==
LOC: DI.CARD 07:36
PROVIDERS: PCP Nurse Practitioner Adult Health; Visit Provider Internal Medicine Cardiovascular Disease
DX: I48.91 Unspecified atrial fibrillation (principal); I10 Essential (primary) hypertension
CPT/HCPCS: 93010

== ENCOUNTER → 2024-04-13 11:04 | Outpatient (BNVA) | payer MEDICARE, OTHER, SELFPAY | PROVIDERS: PCP Nurse Practitioner Adult Health; Referring Provider Nurse Practitioner Adult Health; Visit Provider Internal Medicine Cardiovascular Disease | DX: I48.21 Permanent atrial fibrillation (principal); R94.31 Abnormal electrocardiogram [ECG] [EKG]; I10 Essential (primary) hypertension | CPT/HCPCS: 93005; 99214 ==

== ENCOUNTER 2024-05-12 03:23 | Outpatient (CLI) | payer MEDICARE, OTHER, SELFPAY ==
--- OUTSIDE RECORDS SUMMARY | 2024-05-12 03:24 | XMS_ITS | Clinical Summary ---
Author Organization [facility] Address [address] [place] [address] Care Team Providers Care Outreach Consultant Name Role Phone Reagan Carcamo MD Primary Care Provider U navailable Social History Tobacco Use Types Packs/Day Years Used Date Smoking Tobacco: Never Assessed Sex and Gender Information Value Date Recorded Sex Assigned at Not on file Gender Identity Not on file Sexual Orientation Not on file Plan of Treatment Health Maintenance Due Date Last Done Comments RSV Immunization ( o r 60+ Years) (1 - 1-dose 60+ series) 2003 Fall Risk Screening 2008 COVID-19 Vaccine (2022-24 season) 2023 Care Teams Outreach Consultant Relationship Specialty Start Date End Date Reagan Carcamo MD PCP - General 05/25/14
--- OUTSIDE RECORDS SUMMARY | 2024-05-12 03:25 | XMS_ITS | Encounter Summary ---
Author Organization [facility] [place] [address] Care Team Providers Care Paper Sales Manager Name Role Phone Lianet Muñoz APRN Primary Care Provider [phone] Reason for Referral * Consultation (Routine) - Closed Specialty Diagnoses / Procedures Referred By Guero galicia Referred To Contact Dermatology Diagnoses Melanocytic nevus of face CHANGE IN NEVUS OF FACE Lianet Muñoz APRN [address] [place] [address] [facility] Dermatology [address] [place] [address] Referral ID Status Reason Start Date Expiration Date V isits Requested Visits Authorized [id number] Closed Consult, Test & Treat PCP Updated and/or Approved 11/20/2023 11/19/2024 1 1 Encounter Details Date Type Department Care Team (Latest Contact Info) Description 11/20/2023 Transcribe Orders eDH Incoming Referrals [phone] Lianet Muñoz APRN [address] [place] [address] Melanocytic nevus of face Social History Tobacco Use Types Packs/Day Years Used Date Smoking Tobacco: Never Assessed Sex and Gender Information Value Date Recorded Sex Assigned at Not on file Gender Identity Not on file Sexual Orientation Not on file documented as of this encounter Plan of Treatment Scheduled Referrals Name Type Priority Associated Diagnoses Order Schedule Referral to Dermatology Outpatient Referral Routine Melanocytic nevus of face Ordered: 11/20/2023 documented as of this encounter Visit Diagnoses Diagnosis Melanocytic nevus of face Benign neoplasm of skin of other and unspecified parts of face documented in this encounter Care Teams Paper Sales Manager Relationship Specialty Start Date End Date Lianet Muñoz APRN [address] [place] [address] PCP - General Geriatric Medicine 11/20/23 documented as of this encounter
--- OUTSIDE RECORDS SUMMARY | 2024-05-12 03:25 | XMS_ITS | Encounter Summary ---
Author Organization [facility] Address [address] [place] [address] Care Team Providers Care Relocation Associate Name Role Phone Reagan Carcamo MD Primary Care Provider Rafaela pena Encounter Details Date Type Department Care Team (Late st Contact Info) Description 12/19/[address] [facility] Pathology & Laboratory Medicine - [facility] [address] [place], [place] [id number] Outr Resulting Lab, Provider Social History Tobacco Use Types Packs/Day Years Used Date Smoking Tobacco: Never Assessed Sex and Gender Information Value Date Recorded Sex Assigned at Not on file Gender Identity Not on file Sexual Orientation Not on file documented as of this encounter Plan of Treatment Not on file documented as of this encounter Procedures Procedure Name Priority Date/Time Associated Diagnosis Comments PSA TOTAL, DIAGNOSTIC Routine 12/19/2023 11:10 EST documented in this encounter Results * PSA TOTAL, DIAGNOSTIC (12/19/2023 11:10 EST) PSA 2.1 <=6.5 ng/mL 12/19/2023 18:23 EST [facility] Blood VENOUS BLOOD / Unknown 12/19/2023 11:10 EST 12/19/2023 17:10 EST Narrative [facility] - 12/19/2023 18:23 EST NOTE: Serum PSA concentration should not be interpreted as absolute evidence for the presence or absence of malignant disease. Assayed on Siemens ADVIA Centaur XPT using chemiluminescent technology.??Values obtained by using different assay methods cannot be used interchangeably. Provider Outr Resulting Lab CHEMISTRY & BLOOD GAS ORDERABLES [facility] [address] [place] [address] documented in this encounter Visit Diagnoses Not on filedocumented in this encounter Care Teams Relocation Associate Relationship Specialty Start Date End Date Reagan Carcamo MD PCP - General 05/25/14 documented as of this encounter
--- OUTSIDE RECORDS SUMMARY | 2024-05-12 03:25 | XMS_ITS | Encounter Summary ---
Author Organization [facility] [place] [address] Care Team Providers Care Tumbler Plater Name Role Phone Unknown Primary Care Provider Unavailabl e Encounter Details Date Type Department Care Team (Latest Contact Info) Description 01/20/2023 2:29 PM EDT - 01/20/2023 5:17 PM EDT Hospital [place] [address] Discharge Disposition: Home Social History Tobacco Use Types Packs/Day Years Used Date Smoking Tobacco: Never Assessed Sex and Gender Information Value Date Recorded Sex Assigned at Not on file Gender Identity Not on file Sexual Orientation Not on file documented as of this encounter Plan of Treatment Not on file documented as of this encounter Visit Diagnoses Not on filedocumented in this encounter Care Teams Tumbler Plater Relationship Specialty Start Date End Date Unknown None PCP - General 08/06/17 11/19/23 documented as of this encounter
--- OUTSIDE RECORDS SUMMARY | 2024-05-12 03:25 | XMS_ITS | Encounter Summary ---
Author Organization [facility] [place] [address] Care Team Providers Care Diabetes Nurse Name Role Phone Lianet Muñoz APRN Primary Care Provider [phone] Encounter Details Date Type Department Care Team (Latest Contact Info) Description 02/16/2024 Travel Social History Tobacco Use Types Packs/Day Years Used Date Smoking Tobacco: Never Assessed Sex and Gender Information Value Date Recorded Sex Assigned at Not on file Gender Identity Not on file Sexual Orientation Not on file documented as of this encounter Plan of Treatment Not on file documented as of this encounter Visit Diagnoses Not on filedocumented in this encounter Care Teams Diabetes Nurse Relationship Specialty Start Date End Date Lianet Muñoz APRN [address] [place], [place] [address] [place] [address] PCP - General Geriatric Medicine 11/20/23 documented as of this encounter
--- OUTSIDE RECORDS SUMMARY | 2024-05-12 03:25 | XMS_ITS | Encounter Summary ---
Author Organization [facility] Address [facility] [place] [address] Care Team Providers Care Manager Wind Name Role Phone Unknown Primary Care Provider Unavailabl e Encounter Details Date Type Department Care Team (Latest Contact Info) Description 12/12/2021 11:03 PM EST - 12/12/2021 11:59 PM EST Hospital Encounter Laboratory [facility] [place] [address] Discharge Disposition: Home Social History Tobacco Use Types Packs/Day Years Used Date Smoking Tobacco: Never Assessed Sex and Gender Information Value Date Recorded Sex Assigned at Not on file Gender Identity Not on file Sexual Orientation Not on file documented as of this encounter Plan of Treatment Not on file documented as of this encounter Procedures Procedure Name Priority Date/Time Associated Diagnosis Comments SURGICAL PATHOLOGY REPORT Routine 12/12/2021 3:35 PM EST documented in this encounter Results * Surgical Pathology Report (12/12/2021 3:35 PM EST) Pathologist [facility] Surgical Pathology Report [id number] ? Location: [facility] The signing pathologist has (i) examined the relevant preparation(s) for the specimen(s) and (ii) rendered or confirmed the diagnosis(es). . ?Surgical Pathology DIAGNOSIS A - Antrum Bx, biopsy: Gastric antral mucosa with patchy increase in chronic inflammatory cells and features of reactive gastropathy. See discussion #1. B - Stomach polyps, biopsy: Hyperplastic polyps. Electronically signed by: ?Rosemarie CHRISTIAN PhD, Vernon Mendez Verified: ??12/19/2021 10:19 ??Pathologist Performed at: ??-[facility] [place], [place], [place] DISCUSSION 1. ??There is no immunohistochemical evidence of H.pylori organisms. ADDITIONAL STUDIES Immunohistochemistry Studies: Formalin-fixed, paraffin-embedded tissue sections are studied using the polymer technique with appropriate positive and negative controls. ?These IHC studies provide the pathologist with adjunctive diagnostic information. Antibody specificity has been verified by testing antibodies on a series of in-house tissues with known immunohistochemical performance characteristics. The clinical interpretation of any antibody positive staining or its absence is evaluated within the context of clinical presentation, morphology, histopathological criteria and other diagnostic tests. Block ? Antibody ?Result (Positive/Negative) A1 ? H.pylori ? Negative SPECIMEN(S) SUBMITTED A - Antrum Bx, Biopsy B - Stomach polyps, Biopsy Referring Identifier: ?(not provided) Report to: Ilda Kennedy CLINICAL INFORMATION Iron deficiency anemia, multiple stomach polyps SPECIMEN PROCESSING A - Labeled/Fixative: Antrum BX, formalin. Quantity/Size: Single, 0.3 cm. Tissue Description: Soft, pink tissue. Sections/Processing: Submitted en toto ??in 1 cassette labeled A1. . SPECIMEN PROCESSING B - Labeled/Fixative: Stomach polyps, formalin. Quantity/Size: Multiple, ranging from 0.3-1.3 cm. Tissue Description: Soft, red polyps. Sections/Processing: Entirely submitted in 4 cassettes as follows: ?B1: ??Smaller polyps in toto ?B2: ??Two polyps, differentially inked and bisected ?B3: ??One polyp, inked and quadrisected ?B4: ??Two polyps ??[facility] 12/12/2021 3:35 PM EST Uriel Valenzuela DO PATHOLOGY/CYTOL OGY ORDERABLES [facility] [place] [address] documented in this encounter Visit Diagnoses Not on filedocumented in this encounter Care Teams Manager Wind Relationship Specialty Start Date End Date Unknown None PCP - General 08/06/17 11/19/23 documented as of this encounter
--- OUTSIDE RECORDS SUMMARY | 2024-05-12 03:25 | XMS_ITS | Encounter Summary ---
Author Organization [facility] Address [address] [place] [address] Care Team Providers Care Shell Sieve Operator Name Role Phone Unavailable Primary Care Provider Unavailabl e Encounter Details Date Type Department Care Team (Late st Contact Info) Description 09/07/2004 Results Only [facility] [address] [place] [address] Uriel Aragon, [address] [facility] [address] [place], [place] [id number] Social History Tobacco Use Types Packs/Day Years Used Date Smoking Tobacco: Never Assessed Sex and Gender Information Value Date Recorded Sex Assigned at Not on file Gender Identity Not on file Sexual Orientation Not on file documented as of this encounter Plan of Treatment Not on file documented as of this encounter Procedures Procedure Name Priority Date/Time Associated Diagnosis Comments SURGICAL PATHOLOGY Routine 09/07/2004 0:00 EST documented in this encounter Results * SURGICAL PATHOLOGY (09/07/2004 0:00 EST) Pathology Report: SURGICAL PATHOLOGY REPORT Reports generated via electronic interface contain original data; however they are lacking the format of the original report. Caution should be taken when reading/interpreti ng unformatted reports. Name: ? RICARDO WALLACE ? Accession #: ? [id number] ? : ? 1945 (Age: 59) ??M ? Collect Date: ? 09/07/2004 ? Location: ? [facility] ? Receive Date: ? 09/07/2004 ? Provider: URIEL ARAGON DO Copy to: JIE COOK MD ? Final Pathologic Diagnosis: ? Colon, 15 cm, polyp, biopsy: 1. ?Hyperplastic polyp. 2. ?No adenomatous mucosa identified. ?? Document reviewed and electronically signed by: DARIUS GOLDMAN MD Report ??Date: 09/10/2004 15:57 By the signature above, the attending physician certifies that he/she has personally conducted a gross and/or microscopic examination of the described specimens and rendered or confirmed the above diagnosis. Specimen(s) Received: ? Polyp 15 cm Clinical History: ? Screening for colon Ca Gross Description: ? Received in Hollande's fixative labeled Valdemar and polyp 15 cm are three aiken-pink soft tissues averaging 0.2 x 0.1 x 0.1 cm, submitted in toto in one cassette. ([facility])/[facility] End of Report [facility] 09/07/2004 09/07/2004 15: 19 EST Uriel Aragon DO PATHOLOGY ORDER GENARO [facility] [address] [place] [address] documented in this encounter Visit Diagnoses Not on filedocumented in this encounter
--- OUTSIDE RECORDS SUMMARY | 2024-05-12 03:25 | XMS_ITS | Encounter Summary ---
Author Organization [facility] Address [facility] [place] [address] Care Team Providers Care Oracle Soa Consultant Name Role Phone Unknown Primary Care Provider Unavailabl e Encounter Details Date Type Department Care Team (Latest Contact Info) Description 01/20/2023 5:18 PM EDT - 01/20/2023 11:59 PM EDT Hospital [place] [address] Discharge Disposition: Home Social History Tobacco Use [...] Associated Diagnosis Comments SURGICAL PATHOLOGY REPORT Routine 01/20/2023 11:00 AM EDT documented in this encounter Results * Surgical Pathology Report (01/20/2023 11:00 AM EDT) Surgical Pathology Report [id number] ? Location: [facility] The signing pathologist has (i) examined the relevant preparation(s) for the specimen(s) and (ii) rendered or confirmed the diagnosis(es). . ?Surgical Pathology DIAGNOSIS A - Antrum: - ??Antrum-type mucosa with mild reactive gastropathy. B - Body of Stomach Biopsy: - ??Body/fundic-ty pe mucosa with parietal cell hyperplasia consistent with PPI effect. C - Stomach Polyps: - ??Fragments of hyperplastic polyp. Electronically signed by: ?Abraham De La Vega MD Verified: ??02/10/2023 16:05 ??Pathologist Performed at: ??-[facility] [place] Dept. [place]ology, [place] [address] Staff Climate Scientist: Cassie Landa MD, FCAP, ??CLIA Certificate: [id number] SPECIMEN(S) SUBMITTED A - Antrum B - Body of Stomach Biopsy C - Stomach Polyps Referring Identifier: ?(not provided) Copy to: Lianet Muñoz CLINICAL INFORMATION History of hyperplastic polyps of the stomach; gastritis with two polyps removed illegible word 5 cm, no other polyps of this size for larger SPECIMEN PROCESSING A - Labeled/Fixative : Antrum, formalin. Quantity/Size: Two, 0.3 and 0.4 cm. Tissue Description: Soft, aiken tissues. Sections/Process ing: Submitted en toto ??in 1 cassette labeled A1. B - Labeled/Fixative : Body of stomach, formalin. Quantity/Size: Two, 0.6 and 0.5 cm. Tissue Description: Soft, aiken tissues. Sections/Process ing: Submitted en toto ??in 1 cassette labeled B1. C - Labeled/Fixative : Stomach polyps, formalin. Quantity/Size: Four, ranging from 0.3-1.0 cm. Tissue Description: Soft, aiken tissues. Sections/Process ing: Submitted en toto ??in 1 cassette labeled C1. ??sdy [facility] 01/20/2023 11:0 0 AM EDT Uriel Valenzuela DO PATHOLOGY/CYT OLOGY ORDERABLES [facility] [place] [id number] documented in this encounter Visit Diagnoses Not on filedocumented in this encounter Care Teams Oracle Soa Consultant Relationship Specialty Start Date End Date Unknown None PCP - General 08/06/17 11/19/23 documented as of this encounter
--- OUTSIDE RECORDS SUMMARY | 2024-05-12 03:25 | XMS_ITS | Encounter Summary ---
[place] [address] Care Team Providers Care Institution Director Name Role Phone Lianet Muñoz APRN Primary Care Provider [phone] Reason for Referral * Consultation (Routine) - Denied Specialty Diagnoses / Procedures Referred By Contac t Referred To Contact [facility] Diagnoses Other intervertebral disc displacement, lumbar region Dion Reyes, DO [address] [place] [address] [facility] [place] [address] Referral ID Status Reason Start Date Expiration Date V isits Requested Visits Authorized [id number] Denied Consult, Test & Treat PCP Updated and/or Approved 04/09/2024 04/09/2025 1 0 Encounter Details Date Type Department Care Team (Latest Contact Info) Description 04/25/2024 Transcribe Orders eDH Incoming Referrals [phone] Lianet Muñoz APRN [address] [address] Other intervertebral disc displacement, lumbar region Social History Tobacco Use Types Packs/Day Years Used Date Smoking Tobacco: Never Assessed Sex and Gender Information Value Date Recorded Sex Assigned at Not on file Gender Identity Not on file Sexual Orientation Not on file documented as of this encounter Plan of Treatment Scheduled Referrals Name Type Priority Associated Diagnoses Orde r Schedule Referral to Spine Center Outpatient Referral Routine Other intervertebral disc displacement, lumbar region Ordered: 04/25/2024 documented as of this encounter Visit Diagnoses Diagnosis Other intervertebral disc displacement, lumbar region documented in this encounter Care Teams Institution Director Relationship Specialty Start Date End Date Lianet Muñoz APRN [address] [place] [address] PCP - General Geriatric Medicine 11/20/23 documented as of this encounter
--- OUTSIDE RECORDS SUMMARY | 2024-05-12 03:25 | XMS_ITS | Encounter Summary ---
Author Organization [facility] Address [facility] [place] [address] Care Team Providers Care Petroleum Refining Equipment Operator Name Role Phone Lianet Muñoz APRN Primary Care Provider [phone] Encounter Details Date Type Department Care Team (Late st Contact Info) Description 03/31/2024 Ancillary Procedure Radiology Library [place] [facility] [place] [address] Lianet Muñoz APRN [address] [place], [place] [address] Social History Tobacco Use Types Packs/Day Years Used Date Smoking Tobacco: Never Assessed Sex and Gender Information Value Date Recorded Sex Assigned at Not on file Gender Identity Not on file Sexual Orientation Not on file documented as of this encounter Plan of Treatment Not on file documented as of this encounter Procedures Procedure Name Priority Date/Time Associated Diagnosis Comments FILM LIBRARY STORAGE ONLY MR SPINE Routine 03/31/2024 12:00 AM EDT documented in this encounter Results * Film Library- Storage Only MR Spine (03/31/2024 12:00 AM EDT) Narrative [facility] - 05/11/2024 9:59 AM EDT This exam is auto-finalizing. It's purpose is for storage only. Lianet Muñoz APRN IMG FILM LIBRARY OR DERABLES [place], [place] documented in this encounter Visit Diagnoses Not on filedocumented in this encounter Care Teams Petroleum Refining Equipment Operator Relationship Specialty Start Date End Date Lianet Muñoz APRN [address] [place] [address] PCP - General Geriatric Medicine 11/20/23 documented as of this encounter
--- OUTSIDE RECORDS SUMMARY | 2024-05-12 03:25 | XMS_ITS | Encounter Summary ---
Author Organization [facility] Address [address] [place] [address] Care Team Providers Care Merchandise Execution Leader Name Role Phone Unavailable Primary Care Provider Unavailabl e Encounter Details Date Type Department Care Team (Latest Contact Info) Description 05/20/2014 16:19 EDT - 05/20/2014 23:59 EDT Hospital Encounter [address] [address] Unknown, Provider, Discharge Disposition: Home or Self Care Social History Tobacco Use Types Packs/Day Years Used Date Smoking Tobacco: Never Assessed Sex and Gender Information Value Date Recorded Sex Assigned at Not on file Gender Identity Not on file Sexual Orientation Not on file documented as of this encounter Discharge Disposition Disposition Code Departure Means Destination Home or Self Senior Care documented in this encounter Plan of Treatment Not on file documented as of this encounter Visit Diagnoses Not on filedocumented in this encounter
--- OUTSIDE RECORDS SUMMARY | 2024-05-12 03:25 | XMS_ITS | Encounter Summary ---
Author Organization [facility] Address [address] [place] [address] Care Team Providers Care Dump Grounds Checker Name Role Phone Unavailable Primary Care Provider Unavailabl e Encounter Details Date Type Department Care Team (Late st Contact Info) Description 05/20/2014 Results Only [facility] Laboratory Services - [facility] [address] [place] [address] Uriel Aragon, DO [address] [facility] [address] [place], [place] [id number] Social History Tobacco Use Types Packs/Day Years Used Date Smoking Tobacco: Never Assessed Sex and Gender Information Value Date Recorded Sex Assigned at Not on file Gender Identity Not on file Sexual Orientation Not on file documented as of this encounter Plan of Treatment Not on file documented as of this encounter Procedures Procedure Name Priority Date/Time Associated Diagnosis Comments SURGICAL PATHOLOGY Routine 05/20/2014 7:27 EDT documented in this encounter Results * SURGICAL PATHOLOGY (05/20/2014 7:27 EDT) Pathology Report: SURGICAL PATHOLOGY REPORT Reports generated via electronic interface contain original data; however they are lacking the format of the original report. Caution should be taken when reading/interpreti ng unformatted reports. Name: ? RICARDO WALLACE ? Accession #: ? [id number] ? : ? 1945 (Age: 69) ??M ? Collect Date: ? 05/20/2014 ? Location: ? [facility] ? Receive Date: ? 05/21/2014 ? Provider: URIEL ARAGON DO Copy to: [...] or confirmed the above diagnosis. Specimen(s) Received: Polyp 70 cm Clinical History: Screening Gross Description: ? Received in formalin labelled with proper patient identification (initials F, K) and 1. polyp at 70 cm is a single pink-aiken tissue fragment (0.4 x 0.3 x 0.2 cm). Submitted intact in 1. Analia Lopez 05/23/2014 End of Report [facility] 05/20/2014 7:27 EDT 05/21/2014 7:27 EDT Uriel Aragon DO PATHOLOGY ORDER GENARO [facility] [address] [place] [address] documented in this encounter Visit Diagnoses Not on filedocumented in this encounter
--- OUTSIDE RECORDS SUMMARY | 2024-05-12 03:25 | XMS_ITS | Encounter Summary ---
Author Organization [facility] Address [facility] [place] [address] Care Team Providers Care News Broadcaster Name Role Phone Unknown Primary Care Provider Unavailabl e Encounter Details Date Type Department Care Team (Late st Contact Info) Description 01/24/2023 Telephone Cardiology at [address] [phone] Uriel Kennedy MD [facility] [place] [address] Social History Tobacco Use Types Packs/Day Years Used Date Smoking Tobacco: Never Assessed Sex and Gender Information Value Date Recorded Sex Assigned at Not on file Gender Identity Not on file Sexual Orientation Not on file documented as of this encounter Miscellaneous Notes * Telephone Encounter - Uriel Kennedy MD - 01/24/2023 4:02 AM EDT Did not speak to provider at [facility] regarding patient once I verbalized we were unable to transfer nor did we have a list for transfer. Uriel Kennedy Telesales Team Leader, PGY6 [id number] documented in this encounter Plan of Treatment Not on file documented as of this encounter Visit Diagnoses Not on filedocumented in this encounter Care Teams News Broadcaster Relationship Specialty Start Date End Date Unknown None PCP - General 08/06/17 11/19/23 documented as of this encounter
--- OUTSIDE RECORDS SUMMARY | 2024-05-12 03:25 | XMS_ITS | Encounter Summary ---
Author Organization [facility] [place] [address] Care Team Providers Care Grey Roll Man Name Role Phone Unknown Primary Care Provider Unavailabl e Encounter Details Date Type Department Care Team (Late st Contact Info) Description 12/06/2021 12:13 PM EST - 12/06/2021 11:59 PM EST Hospital Encounter [facility] [address] [place] [address] Uriel Valenzuela, DO [address] [place] [address] Discharge Disposition: Home Social History Tobacco Use Types Packs/Day Years Used Date Smoking Tobacco: Never Assessed Sex and Gender Information Value Date Recorded Sex Assigned at Not on file Gender Identity Not on file Sexual Orientation Not on file documented as of this encounter Plan of Treatment Not on file documented as of this encounter Procedures Procedure Name Priority Date/Time Associated Diagnosis Comments COVID-19 PCR Routine 12/06/2021 10:00 AM EST documented in this encounter Results * COVID-19 PCR (12/06/2021 10:00 AM EST) SARS-CoV-2 RNA Not Detected Not Detected [facility] Comment: This result should be interpreted in combination with the clinical observations, patient history and epidemiological information in making a final diagnosis. For testing of asymptomatic individuals, assay performance characteristics and clinical utility have not been evaluated. Testing for SARS-CoV-2 (Severe acute respiratory syndrome coronavirus 2, formerly known as 2019 novel coronavirus or 2019-nCoV) to aid in the diagnosis of COVID-19 is performed using the [employer] m SARS-CoV-2 Assay as authorized by the FDA Emergency Use Authorization (EUA). This EUA assay is intended for In-vitro Diagnostic (IVD) use with respiratory specimens such as nasopharyngeal swabs collected from individuals during the acute phase of infection. This assay is performed based on the instructions for use provided by [employer] and additional guidance provided by CDC and FDA. Testing is performed in the [facility] within the Department of Pathology and Laboratory Medicine at [facility], certified under the Clinical Laboratory Improvement Amendments of 1988 (CLIA), 42 U.S.C. 263a, to perform high complexity tests. Assay performance has been verified according to clinical laboratory regulatory requirements for use with specimens collected from individuals suspected of COVID-19. Test results are provided above. A result of Not Detected indicates that the viral RNA target is not present above the limit of detection, but does not preclude SARS-CoV-2 infection. False negative results may occur if a specimen is improperly collected, transported or handled; if amplification inhibitors are present; or if inadequate numbers of viral particles are present in the specimen. When a diagnostic test is negative, the possibility of a false negative result should be considered in the context of a patient's recent exposures and the presence of clinical signs and symptoms consistent with COVID-19. A result of Detected indicates that RNA from SARS-CoV-2 was detected and the patient is infected. As required or requested by public health authorities, positive specimens may be sent for additional testing. Positive and negative predictive values for this test are highly dependent on disease prevalence. A result of Invalid indicates that neither the viral RNA targets nor the internal control target was detected. An invalid result suggests the presence of inhibitors. Recollection and re-testing is recommended in the case of an invalid result. CDC COVID-19 criteria for testing on human specimens and clinical management guidance information are available at the CDC Coronavirus Disease 2019 (COVID-19) webpage under Information for Healthcare Professionals (https://www.cdc.gov/coronavirus/2019-ncov/hcp/index.html) Additional information about this and other EUA tests can be found in provider and patient fact sheets at the following FDA website: https://www.fda.gov/medical-devices/qzkvpmlaxfd-odkabub-0751-lotgz-03-lgfksyuip- use-a qnifixugqimzx-vugtesy-qrjgneu/ciqhi-bdmrwodkefl-cbyy SARS-Cov-2 RNA Source [employer] Swab [facility] Nasopharyngeal Swab 12/06/19 10:00 AM EST 12/06/2021 10:41 PM EST Narrative Resulting Agency Comment Spec In Lab Uriel Valenzuela DO MICROBIOLOGY - GENERAL ORDERABLES Performing Organization Address City/State/[facility] Co de Phone Number [facility] [place] [address] documented in this encounter Visit Diagnoses Not on filedocumented in this encounter Care Teams Grey Roll Man Relationship Specialty Start Date End Date Unknown None PCP - General 08/06/17 11/19/23 documented as of this encounter
--- OUTSIDE RECORDS SUMMARY | 2024-05-12 03:25 | XMS_ITS | Encounter Summary ---
Author Organization [facility] Address [facility] [place] [address] Care Team Providers Care Telemetry Technician Name Role Phone Lianet Muñoz SOFTWARE TECHNICIAN Primary Care Provider [phone] Reason for Visit * Consultation (Routine) - Closed Specialty Diagnoses / Procedures Referred By Guero galicia Referred To Contact Dermatology Diagnoses Melanocytic nevus of face CHANGE IN NEVUS OF FACE Lianet Muñoz APRN [address] [place] [address] [facility] Dermatology [address] [place] [address] Referral ID Status Reason Start Date Expiration Date V isits Requested Visits Authorized [id number] Closed Consult, Test & Treat PCP Updated and/or Approved 11/20/2023 11/19/2024 1 1 Encounter Details Date Type Department Care Team (Late st Contact Info) Description 02/16/2024 1:20 PM EDT Office Visit Dermatology at [facility] [address] [place] [phone] Bryan Gan MD [facility] [address] [place] [address] Verruca vulgaris Social History Tobacco Use Types Packs/Day Years Used Date Smoking Tobacco: Never Assessed Sex and Gender Information Value Date Recorded Sex Assigned at Not on file Gender Identity Not on file Sexual Orientation Not on file documented as of this encounter Progress Notes * Bryan Gan MD - 02/16/2024 1:20 PM EDT Images from the original note were not included. DEPARTMENT OF DERMATOLOGY Medical Dermatology Clinic Provider: Bryan Gan MD FAAD at Dermatology at [facility] Patient's preferred name Blue Preferred contact method for results Home Phone with detailed results? [x]Yes []No Approved contact for medical information: -- PAST MEDICAL HISTORY (if blank, patient denies history) Melanoma -- Dysplastic nevi -- SCC -- BCC -- AK No history of AKs Skin Cancer Risk Risk: History of sun damage Mitigation: N/A Other relevant history FAMILY HISTORY (if blank, patient denies history) Melanoma -- NMSC -- Other relevant history SOCIAL HISTORY Occupation: Retired History of Present Illness: Blue Aldrich is 78 y.o. and here for the following: spot on the right cheek. Interferes with shaving. Present for at least 6 months. Not symptomatic. Medications: Reviewed in eD-H Allergies: Reviewed in eD-H Skin Examination Standby: Eduardo Aguirre CMA Well developed, well-nourished in no apparent distress, alert and oriented to time, person, place and situation. Focused examination of the skin of the right cheek significant for the following: Exam Findings/Assessment/Plan Wart Pedunculated, 4 x 3 mm papule with verrucous superficial features on the right mid cheek. Counseled: warts, types, etiology, prognosis long and serial treatments, and treatment options (including their risks and benefits), including awaiting immunity development, salicylic acid, cryotherapy, triple acid, cantharadin, electrodessication, and laser treatment. Reviewed major risks of each including recurrence and pain. Answered all questions. Joint decision to treat with cryotherapy. Total 1 treated with cryotherapy, 1 cycle at 4 seconds, after verbally discussing the disease and treatment options, cryotherapy method, expected results/course and potential adverse effects, including crusting, persistent erythema, scar, blister, pain, dyspigmentation, and recurrence. Patient verbally agreed. Patient tolerated well with no complications. Wound care instructions provided. If no resolution in 1 month or if scaling recurs after initial resolution, may contact clinic for re-evaluation and management. Follow-up: Return as needed for suspicious lesion, new or worsening dermatitis. [] Recall placed [] Forwarded to outpatient scheduler [] Patient scheduled before exiting Scribe attestation: Eduardo Aguirre [facility] has performed the documentation for this encounter in the presence of and acting as a scribe for MD LISA Daniels. I performed the above scribed service and agree with the accuracy of the documentation in this encounter. Reviewed and signed by: Bryan Gan MD FAADmitriy Dermatology [facility] documented in this encounter Plan of Treatment Not on file documented as of this encounter Visit Diagnoses Diagnosis Verruca vulgaris Viral warts, unspecified documented in this encounter Care Teams Telemetry Technician Relationship Specialty Start Date End Date Lianet Muñoz APRN [address] [place] [address] PCP - General Geriatric Medicine 11/20/23 documented as of this encounter
--- OUTSIDE RECORDS SUMMARY | 2024-05-12 03:25 | XMS_ITS | Referral Summary ---
Author Organization [facility] Address [address] [place] [address] Care Team Providers Care Java Groovy Developer Name Role Phone Reagan Carcamo MD Primary Care Provider U navailable Social History Tobacco Use Types Packs/Day Years Used Date Smoking Tobacco: Never Assessed Sex and Gender Information Value Date Recorded Sex Assigned at Not on file Gender Identity Not on file Sexual Orientation Not on file Plan of Treatment Not on file Care Teams Java Groovy Developer Relationship Specialty Start Date End Date Reagan Carcamo MD PCP - General 05/25/14
--- OUTSIDE RECORDS SUMMARY | 2024-05-12 03:25 | XMS_ITS | Encounter Summary ---
Author Organization [facility] Address [address] [place] [address] Care Team Providers Care Fill Manager Name Role Phone Reagan Carcamo MD Primary Care Provider Rafaela pena Encounter Details Date Type Department Care Team (Late st Contact Info) Description 02/09/2021 Lab Requisition [facility] Pathology & Laboratory Medicine - [facility] [address], [place] [address] Outr Resulting Lab, Provider Social History Tobacco [...] Procedure Name Priority Date/Time Associated Diagnosis Comments ZZCOVID-19 TEST [facility] PCR Today 02/09/2021 10:31 EDT COVID-19 TESTING Routine 02/09/2021 10:3 1 EDT documented in this encounter Results * COVID-19 TEST [facility] PCR (02/09/2021 10:31 EDT) Swab ENTIRE NASOPHARYNX / Unknown 02/09/2021 10:31 EDT 02/09/2021 15:45 EDT Provider Outr Resulting Lab MICROBIOLOGY - GENERAL ORDERABLES [facility] [address] [place] [address] * COVID-19 TESTING (02/09/2021 10:31 EDT) COVID-19 rt-PCR Result Negative Negative 02/10/2021 14:58 EDT [facility] Comment: This test has not been FDA cleared or approved. This test has been authorized by FDA under an EUA for use by authorized laboratories. This test has been authorized only for detection of nucleic acid from 2019-nCoV, not for any other viruses or pathogens. This test is only authorized for the duration of the declaration that circumstances exist justifying the authorization of emergency use of in vitro diagnostic tests for detection and/or diagnosis of 2019-nCoV under section 564(b)(1) of Act, 21 U.S.C ?? 360bbb-3(b) (1), unless the authorization is terminated or revoked sooner. Negative results do not preclude 2019-nCoV infection and should not be used as the sole basis for treatment or other patient management decisions. Negative results must be combined with clinical observations, patient history, and epidemiological information. Testing was performed using the rosy SARS-CoV-2 assay ([employer] on the Rosy 6800 System Performing Lab Rosy [address] [facility] 02/10/2021 14:58 EDT [facility] Swab 02/09/2021 10:3 1 EDT 02/09/2021 15:45 EDT Provider Outr Resulting Lab MICROBIOLOGY - GENERAL ORDERABLES [facility] [address] [place] [address] documented in this encounter Visit Diagnoses Not on filedocumented in this encounter Care Teams Fill Manager Relationship Specialty Start Date End Date Reagan Carcamo MD PCP - General 05/25/14 documented as of this encounter
--- OUTSIDE RECORDS SUMMARY | 2024-05-12 03:25 | XMS_ITS | Clinical Summary ---
Author Organization [facility] [place] [address] Care Team Providers Care Molding Utility Worker Name Role Phone Wanda Lianet GHOSH Primary Care Provider [phone] Allergies No known active allergies Medications Medication Sig Dispensed Refills Start Date End Date Status losartan (Cozaar) 100 mg tablet Take 100 mg by mouth daily. Active omeprazole 20 mg Tablet, Delayed Release (E.C.) Take by mouth. Active bumetanide (Bumex) 2 mg tablet Take 2 mg by mouth daily. Active METOPROLOL SUCCINATE ORAL Take by mouth. Active magnesium oxide (Mag-Ox) 400 mg (241.3 mg magnesium) Tablet Take 400 mg by mouth daily. Active simvastatin (Zocor) 10 mg tablet Take 10 mg by mouth nightly. Active doxazosin (Cardura) 2 mg tablet Take 2 mg by mouth nightly. Active amLODIPine (Norvasc) 10 mg tablet Take 10 mg by mouth daily. Active rivaroxaban (Xarelto) 15 mg tablet Take by mouth. Active ferrous gluconate (Ferate) 324 mg (37.5 mg iron) tablet Take 324 mg by mouth daily. Active Encounters Date Type Department Care Team Description 04/25/2024 Transcribe Orders eDH Incoming Referrals [phone] Lianet Muñoz APRN Other intervertebral disc displacement, lumbar region 03/31/2024 Ancillary Procedure [place] [address] Lianet Muñoz APRN 02/16/2024 1:20 PM EDT Office Visit Dermatology at [facility] [address] [place] [phone] Bryan Gan MD Verruca vulgaris 02/16/2024 Travel from Last 3 Months Social History Tobacco Use Types Packs/Day Years Used Date Smoking Tobacco: Never Assessed Sex and Gender Information Value Date Recorded Sex Assigned at Not on file Gender Identity Not on file Sexual Orientation Not on file Plan of Treatment Health Maintenance Due Date Last Done Comments Tdap adult 1962 Tetanus vaccine 1962 Zoster vaccine (1 of 2) 1993 Advance Directive 1998 Pneumoccocal Vaccine: 65+ (1 of 1 - PCV) 2008 Covid-19 Vaccine ( - 2022- season) 2024 10/15/2023, 09/16/2022, 03/13/2022 Influenza (Flu) vaccine (1 o f 1 - Influenza standard series) 06/27/2024 Procedures Procedure Name Priority Date/Time Associated Diagnosis Comments FILM LIBRARY STORAGE ONLY MR SPINE Routine 03/31/2024 12:00 AM EDT MRI/MRA SCAN 03/31/2024 12:00 AM EDT from Last 3 Months Results * Scan Doc: MRI/MRA (03/31/2024 12:00 AM EDT) Anatomical Region Laterality Modality Other Narrative 03/31/2024 12:00 AM EDT Ordered by an unspecified provider. Scanning Provider MEDIA MGR SCAN EXT O RDR/RSLT * Film Library- Storage Only MR Spine (03/31/2024 12:00 AM EDT) Narrative RAD - 05/11/2024 9:59 AM EDT This exam is auto-finalizing. It's purpose is for storage only. Lianet Muñoz APRN IMG FILM LIBRARY OR DERABLES [place], [place] from Last 3 Months Care Teams Molding Utility Worker Relationship Specialty Start Date End Date Lianet Muñoz APRN [address] [place] [address] PCP - General Geriatric Medicine 11/20/23
[2024-05-12 10:56] LABS: HCT 36.9 % (40.0-50.0); HGB 12.4 g/dL (13.5-17.5)
[2024-05-12 11:08] LABS: Anion Gap 8.2 mmol/L (3-11); BUN 31 mg/dL (7-18); CO2 26.8 mmol/L (21.0-32.0); Calcium 8.6 mg/dL (8.5-10.1); Chloride 106 mmol/L (98-107); Estimated GFR 32.91 (mL/min/1.73m2); Glucose 141 mg/dL (74-106); Potassium 3.9 mmol/L (3.5-5.1); Sodium 141 mmol/L (136-145)
== END 2024-05-12 03:24 | disposition home or self-care (01) ==
LOC: LBO 03:23
PROVIDERS: PCP Nurse Practitioner Adult Health; Referring Provider Nurse Practitioner Adult Health; Visit Provider Nurse Practitioner Adult Health
DX: D50.9 Iron deficiency anemia, unspecified (principal); I10 Essential (primary) hypertension
CPT/HCPCS: 36415; 80048; 85014; 85018

== ENCOUNTER 2024-10-28 03:45 | Outpatient (CLI) | payer MEDICARE, OTHER, SELFPAY ==
[2024-10-28 10:42] LABS: HCT 38.5 % (40.0-50.0); HGB 12.7 g/dL (13.5-17.5)
[2024-10-28 11:13] LABS: Hemoglobin A1C 5.2 % (<5.7)
[2024-10-28 11:42] LABS: COMMENT (LAB VIEW ONLY) 73.21 mg/dL
[2024-10-28 11:45] LABS: Microalb ug/mg Crea 987.3 ug/mg Cr
[2024-10-28 11:47] LABS: Anion Gap 11.4 mmol/L (3-11); BUN 33 mg/dL (7-18); CO2 24.6 mmol/L (21.0-32.0); Calcium 9.2 mg/dL (8.5-10.1); Calculated LDL 82 mg/dL (<100); Chloride 107 mmol/L (98-107); Cholesterol 143 mg/dL (<200); Estimated GFR 32.91 (mL/min/1.73m2); Ferritin 158 ng/mL (26-388); Glucose 101 mg/dL (74-106); HDL Cholesterol 50 mg/dL (40-60); Magnesium 2.4 mg/dL (1.8-2.4); Potassium 3.9 mmol/L (3.5-5.1); Sodium 143 mmol/L (136-145); Triglyceride 56 mg/dL (<150)
== END 2024-10-28 03:46 | disposition home or self-care (01) ==
LOC: LBO 03:46
PROVIDERS: Absent Provider Nurse Practitioner Adult Health; PCP Nurse Practitioner Adult Health; Referring Provider Nurse Practitioner Adult Health; Visit Provider Nurse Practitioner Adult Health
DX: I10 Essential (primary) hypertension (principal); E78.00 Pure hypercholesterolemia, unspecified; R73.01 Impaired fasting glucose; E66.01 Morbid (severe) obesity due to excess calories; Z68.41 Body mass index [BMI] 40.0-44.9, adult; N18.32 Chronic kidney disease, stage 3b; E83.42 Hypomagnesemia; D50.9 Iron deficiency anemia, unspecified
CPT/HCPCS: 36415; 80048; 80061; 82043; 82570; 82728; 83036; 83735; 85014; 85018

== ENCOUNTER 2024-11-12 14:20 | Outpatient (CLI) | payer MEDICARE, OTHER, SELFPAY ==
--- NOTE | 2024-11-12 12:15 | DI.RAD_ITS ---
Exam(s) XR CHEST 2V PA LATERAL EXAM: XR CHEST 2V PA LATERAL CLINICAL HISTORY: R05.9 Cough eval pathology - pna TECHNIQUE: 2D digital imaging was performed. Two views. COMPARISON: CR XR CHEST 2V PA LATERAL from 01/16/2024 FINDINGS: HEART: Enlarged, unchanged. Aorta: Not dilated. PULMONARY VASCULATURE: Prominent, unchanged. MEDIASTINUM: Unremarkable. LUNGS: Clear. PLEURAL SPACE: No pleural effusion or pneumothorax. BONE:Unremarkable for age. SOFT TISSUES: Unremarkable. IMPRESSION: Cardiomegaly. No evidence of pneumonia. DATA REPOSITORY: RADIATION DOSE DELIVERED:
--- OUTSIDE RECORDS SUMMARY | 2024-11-12 14:24 | XMS_ITS | Encounter Summary ---
Author Organization [facility] [place] [address] Care Team Providers Care Surgical Specialist Name Role Phone Lianet Muñoz APRN Primary Care Provider [phone] Reason for Visit * Reason Onset Date Comments Post Procedure Call 10/19/[address] bi lateral LMBB's Encounter Details Date Type Department Care Team (Late st Contact Info) Description 10/19/2024 Telephone [facility] [place] [phone] Pat Daley, RN Post Procedure Call (Post 1 st bilateral LMBB's) Social History Tobacco Use Types Packs/Day Years Used Date Smoking Tobacco: Never Smokeless Tobacco: Never Sex and Gender Information Value Date Recorded Sex Assigned at Not on file Gender Identity Not on file Sexual Orientation Not on file documented as of this encounter Miscellaneous Notes * Telephone Encounter - Pat Daley RN - 10/19/2024 3:13 PM EST Out going call to Blue and spoke with his Tamie and was told that Blue wasn't in at this time. Tamie didn't feel she could go over the pain score results with me so I told her that I wouldreach back out to them on Friday after . documented in this encounter Plan of Treatment Upcoming Encounters Date Type Department Care Team (Late st Contact Info) Description 12/31/2024 10:00 AM EST Office Visit [facility] [place] [phone] [facility] [place] [address] 09/26/2050 Hospital Encounter Pain Management [facility] [place] [address] [facility] [place] [address] Scheduled Procedures Name Priority Associated Diagnoses Date/Ti me INJECTION, FACET JOINT, W\FLUORO, LUMBAR, 2ND LEVEL (WRVU 1) Spondylosis of lumbar region without myelopathy or radiculopathy INJECTION, FACET JOINT, W\FLUORO, LUMBAR, SINGLE (WRVU 1.52) Spondylosis of lumbar region without myelopathy or radiculopathy documented as of this encounter Visit Diagnoses Not on filedocumented in this encounter Care Teams Surgical Specialist Relationship Specialty Start Date End Date Lianet Muñoz APRN [address] [place] [address] PCP - General Geriatric Medicine 11/20/23 documented as of this encounter
--- OUTSIDE RECORDS SUMMARY | 2024-11-12 14:24 | XMS_ITS | Encounter Summary ---
Author Organization [facility] Address [address] [place] [address] Care Team Providers Care Food Service Worker Hospital Name Role Phone Reagan Carcamo MD Primary Care Provider Rafaela pena Encounter Details Date Type Department Care Team (Late st Contact Info) Description 12/19/2023 Lab Requisition [facility] Pathology & Laboratory Medicine - [facility] [address] [place], [place] [id number] Outr Resulting Lab, Provider Social History Tobacco Use Types Packs/Day Years Used Date Smoking Tobacco: Never Assessed Sex and Gender Information Value Date Recorded Sex Assigned at Not on file Legal Sex Male 18:34 EST Gender Identity Not on file Sexual Orientation Not on file documented as of this encounter Plan of Treatment Not on file documented as of this encounter Procedures Procedure Name Priority Date/Time Associated Diagnosis Comments PSA TOTAL, DIAGNOSTIC Routine 12/19/2023 11:10 EST documented in this encounter Results * PSA TOTAL, DIAGNOSTIC (12/19/2023 11:10 EST) PSA 2.1 <=6.5 ng/mL 12/19/2023 18:23 EST [facility] Blood VENOUS BLOOD / Unknown 12/19/2023 11:10 EST 12/19/2023 17:10 EST Narrative [facility] - 12/19/2023 18:23 EST NOTE: Serum PSA concentration should not be interpreted as absolute evidence for the presence or absence of malignant disease. Assayed on Siemens ADVIA Vir-Secaur XPT using chemiluminescent technology.??Values obtained by using different assay methods cannot be used interchangeably. us Provider Outr Resulting Lab CHEMISTRY & BLOOD GA S ORDERABLES Final Result [facility] [address] [place] [address] documented in this encounter Visit Diagnoses Not on filedocumented in this encounter Care Teams Food Service Worker Hospital Relationship Specialty Start Date End Date Reagan Carcamo MD PCP - General 05/25/14 documented as of this encounter
--- OUTSIDE RECORDS SUMMARY | 2024-11-12 14:24 | XMS_ITS | Encounter Summary ---
Author Organization [facility] Address [facility] [place] [address] Care Team Providers Care Apparel Pattern Maker Name Role Phone iLanet Muñoz APRN Primary Care Provider [phone] Reason for Visit * Auth/Cert (Routine) Specialty Diagnoses / Procedures Referred By Guero t Referred To Contact Diagnoses Spondylosis of lumbar region without myelopathy or radiculopathy Chronic pain syndrome Spondylosis of lumbar region without myelopathy or radiculopathy Procedures PRO INJECTION PV FACET JOINT LUMBAR/SACRAL SECOND LEVEL PRO INJECTION PV FACET JOINT LUMBAR/SACRAL SINGLE LEVEL INJECTION, FACET JOINT, W\FLUORO, LUMBAR, 2ND LEVEL (WRVU 1) INJECTION, FACET JOINT, W\FLUORO, LUMBAR, SINGLE (WRVU 1.52) Karlo Desir MD [facility] [place] [address] [facility] Referral ID Status Reason Start Date Expiration Date Visits Re quested Visits Authorized [id number] 1 1 Encounter Details Date Type Department Care Team (Late st Contact Info) Description 10/18/2024 2:30 PM EST - 10/18/2024 3:00 PM EST [place] [phone] Karlo Desir MD [facility] [place] [address] INJECTION, FACET JOINT, W\FLUORO, LUMBAR, 2ND LEVEL (WRVU 1) Social History Tobacco Use Types Packs/Day Years Used Date Smoking Tobacco: Never Smokeless Tobacco: Never Sex and Gender Information Value Date Recorded Sex Assigned at Not on file Gender Identity Not on file Sexual Orientation Not on file documented as of this encounter Last Filed Vital Signs Vital Sign Reading Time Taken Comments Blood Pressure 160/72 10/18/2024 2:46 PM EST Pulse 66 10/18/2024 2:46 PM EST Temperature - - Respiratory Rate - - Oxygen Saturation 93% 10/18/2024 2:46 PM EST Inhaled Oxygen Concentration - - Weight 120.2 kg (265 lb) 10/18/2024 2:46 PM EST Height 175.3 cm (5' 9) 10/18/2024 2:46 PM EST Body Mass Index 39.13 10/18/2024 2:46 PM EST documented in this encounter Medications at Time of Discharge Medication Sig Dispensed Refills Start Date End Date albuteroL 90 mcg/actuation inhaler (HFA) Inhale 2 puffs into the lungs 3 times daily as needed. 09/11/2021 amlodipine-valsartan (Exforge) 10-160 mg tablet Take 1 tablet by mouth daily. 06/16/2024 metoprolol tartrate (Lopressor) 100 mg tablet Take 100 mg by mouth 2 times daily. 05/15/2024 losartan (Cozaar) 100 mg tablet Take 100 mg by mouth daily. omeprazole 20 mg Tablet, Delayed Release (E.C.) Take 20 mg by mouth daily. bumetanide (Bumex) 2 mg tablet Take 1 mg by mouth 2 times daily. METOPROLOL SUCCINATE ORAL Take 100 mg by mouth daily. magnesium oxide (Mag-Ox) 400 mg (241.3 mg magnesium) Tablet Take 400 mg by mouth daily. simvastatin (Zocor) 10 mg tablet Take 10 mg by mouth nightly. doxazosin (Cardura) 2 mg tablet Take 2 mg by mouth nightly. amLODIPine (Norvasc) 10 mg tablet Take 10 mg by mouth daily. rivaroxaban (Xarelto) 15 mg tablet Take 15 mg by mouth daily. ferrous gluconate (Ferate) 324 mg (37.5 mg iron) tablet Take 324 mg by mouth daily. documented as of this encounter H&P Notes * Karlo Desir MD - 10/18/2024 2:51 PM EST Patient Name: Blue Aldrich Patient Age: 79 y.o. Birthdate: 1945 Admit date: 10/18/2024 Attending Physician: Karlo Desir MD [facility] PREPROCEDURE HISTORY AND PHYSICAL HPI: Blue Aldrich is a 79 y.o. male who presents today for: Procedure: Bilateral L3/4/5 MBB The history is obtained from the patient, and I have reviewed medical records provided by the referring physician, located in the electronic medical record to fill in gaps in the patient's recollection of events, treatments and outcomes. There have been no acute changes in the patients complaints or symptoms since previous assessment on 07/16/24. ROS: Patient denies recent fever, chills, infection, wounds, hospitalizations, ED visits, use of antibiotics. Pertinent positives and negatives otherwise noted in the HPI. I have reviewed the patient's past medical history, past surgical history, list of medications, allergies, family history and social history as documented in the electronic medical record. Physical Examination: Please see previous evaluation performed on 07/16/24, by Kathy Mccabe Constitutional: Pt oriented to person, place, and time. Appears well-developed and well-nourished. No distress. HENT: Normocephalic and atraumatic. Pulmonary/Chest: Effort normal. Neurological: Alert and oriented to person, place, and time. No cranial nerve deficit. Moves all extremities at least antigravity. Skin: Skin is warm and dry. No rash noted. Not diaphoretic. Psychiatric: Normal mood and affect. Musculoskeletal: see prior eval Radiologic Data: Relevant imaging was reviewed today. New Imaging: none Labs: No labs required Assessment and Plan: Present on Admission: Spondylosis of lumbar region without myelopathy or radiculopathy Proceed with planned bilateral L3/4/5 MBB. Addressed all questions and concerns. Risks and benefits discussed with patient. No contraindications to the procedure at this time, will proceed. Karlo Desir M.D. Attending Physician [facility] [place] [address] / documented in this encounter Miscellaneous Notes * Op Note - Karlo Desir MD - 10/18/2024 3:05 PM EST Pain Management Operative Note Patient Name: Blue Aldrich : [id number] MR#: [id number] Case Date: 10/18/2024 Surgeon: Surgeons and Role: * Karlo Desir MD - Primary Present on Admission: Spondylosis of lumbar region without myelopathy or radiculopathy Postoperative diagnosis: same Procedure(s) (LRB): INJECTION, FACET JOINT, W\FLUORO, LUMBAR, 2ND LEVEL (WRVU 1) (Bilateral) INJECTION, FACET JOINT, W\FLUORO, LUMBAR, SINGLE (WRVU 1.52) (Bilateral) LUMBAR/SACRAL MEDIAL BRANCH BLOCKS Patient: Blue Aldrich Provider: Karlo Desir MD Blue Aldrich has been referred to the Pain Management Center for lumbar/sacral medial branch blocks. COMMENTS: first MBB Mr. Aldrich was interviewed and the medical record reviewed. There were no medical, pharmacologic,radiographic or other structural contraindications to attempting fluoroscopically guided local anesthetic lumbar/sacral medial branch blocks. Risks and expected side effects as well as potential benefit of the procedure were reviewed with Mr. Mottnd his voiced concerns addressed. The printed consent form was signed and witnessed. Standard time-out procedure was performed. Mr. Aldrich was placed in the prone position on the fluoroscopy table and automated blood pressurecuff and pulse oximeter applied. The skin entry points for approaching the anatomic target points of the segmental medial branches of bilaterally L3, L4, and L5-DR were identified with an fluoroscopy and marked. Following thorough Chlorhexidine preparation of theskin and draping and 1% lidocaine infiltration of the skin entry points and subcutaneous tissues, a25 gauge spinal needle was placed under fluoroscopic guidance down on to the target point for each respective segmental medial branch. Position was confirmed in A/P, oblique and lateral views. 0.5 mL of omnipaque 240 was injected at each target location without evidence of vascular uptake. At each point 0.5 ml Bupivacaine 0.5% was injected. Mr. Aldrich's vital signs were stable throughout the procedure and were as recorded in the docflowsheet by the nursing staff. Pre-procedure VAS: 8/10 Post-procedure VAS: 4/10 Follow up plans and appointments were discussed with Mr. Aldrich. Mr. Aldrich was instructed to keep careful note of how the usual pain was modified by these injections. Specifically, he was asked to keep a pain diary for the next 24 hours using a numeric pain scale of 0-10 and report these results at the follow- up visit. Post procedure instruction was given as documented in the nursing documentation and having met discharge criteria, he was discharged from the Pain Management Center. Anxiolysis: No Midazolam / Fentanyl IV given. PLAN: Follow up call from our nursing staff to evaluate for the efficacy and the relief from the medial branch blocks, to determine next steps. Karlo Desir M.D. Attending Physician [facility] [place] [address] / CC: Kathy Mccabe MD [facility] PA[facility] [place] [id number] [place] [address] documented in this encounter Plan of Treatment Upcoming Encounters Date Type Department Care Team (Late st Contact Info) Description 12/31/2024 10:00 AM EST Office Visit [facility] [place] [phone] Karlo Desir MD [facility] [place] [address] 09/26/2050 Hospital Encounter [place] [phone] Karlo Desir MD [facility] [place] [address] Scheduled Procedures Name Priority Associated Diagnoses Date/Ti me INJECTION, FACET JOINT, W\FLUORO, LUMBAR, 2ND LEVEL (WRVU 1) Spondylosis of lumbar region without myelopathy or radiculopathy INJECTION, FACET JOINT, W\FLUORO, LUMBAR, SINGLE (WRVU 1.52) Spondylosis of lumbar region without myelopathy or radiculopathy documented as of this encounter Procedures Procedure Name Priority Date/Time Associated Diagnosis Comments Injection Pv Facet Joint Lumbar/Sacral Single Level (71415) 10/18/2024 3:00 PM EST Spondylosis of lumbar region without myelopathy or radiculopathy Chronic pain syndrome Injection Pv Facet Joint Lumbar/Sacral Second Level (72395) 10/18/2024 3:00 PM EST Spondylosis of lumbar region without myelopathy or radiculopathy Chronic pain syndrome INJECTION, FACET JOINT,W\FLUORO, LUMBAR, SINGLE Routine 10/18/2024 2:35 PM EST Spondylosis of lumbar region without myelopathy or radiculopathy Chronic pain syndrome INJECTION, FACET JOINT,W\FLUORO, LUMBAR, 2ND LEVEL Routine 10/18/2024 2:35 PM EST Spondylosis of lumbar region without myelopathy or radiculopathy Chronic pain syndrome documented in this encounter Visit Diagnoses Diagnosis Spondylosis of lumbar region without myelopathy or radiculopathy- Primary Lumbosacral spondylosis without myelopathy Chronic pain syndrome Spondylosis of lumbar region without myelopathy or radiculopathy Lumbosacral spondylosis without myelopathy Chronic pain syndrome documented in this encounter Admitting Diagnoses Diagnosis Spondylosis of lumbar region without myelopathy or radiculopathy Lumbosacral spondylosis without myelopathy documented in this encounter Care Teams Apparel Pattern Maker Relationship Specialty Start Date End Date Lianet Muñoz APRN [address] [place] [address] PCP - General Geriatric Medicine 11/20/23 documented as of this encounter
--- OUTSIDE RECORDS SUMMARY | 2024-11-12 14:24 | XMS_ITS | Encounter Summary ---
Author Organization [facility] Address [facility] [place] [address] Care Team Providers Care Director Of Quality Improvement Name Role Phone Lianet Muñoz APRN Primary Care Provider [phone] Encounter Details Date Type Department Care Team (Late st Contact Info) Description 08/26/2024 Telephone [facility] [place] [phone] Enedina Elias, RN Social History Tobacco Use Types Packs/Day Years Used Date Smoking Tobacco: Never Smokeless Tobacco: Never Sex and Gender Information Value Date Recorded Sex Assigned at Not on file Gender Identity Not on file Sexual Orientation Not on file documented as of this encounter Miscellaneous Notes * Telephone Encounter - Enedina Elias, RN - 08/27/2024 7:[address] Mccabe's response: 08/26/24 4:24 PM Okay to pend LMBB order. Thanks Procedure Requested: Bilateral L3, 4, 5 lumbar medial branch block What is your current Pain Score (1-10 range)? 5-7/10 Does your pain make activities of daily living difficult? If yes, please describe what activity andlevel of difficulty. Walking, standing, bending, lifting. Mod-sev difficulty. Pain Asmt (include sidedness, characteristics & distribution): lower back across, Reggie; no radiation; constant Pertinent Medical History - h/o Thrombocytopenia/bleeding tendency/platelet dysfunction: no - h/o Liver disease; abnormal liver function: no - h/o Chronic kidney disease (CKD); abnormal kidney function: no - Patient on dialysis? no - Patient has pacemaker/defibrillator: no Is patient taking an anticoagulant? Xarelto (Rivaroxaban) by PCP Is patient taking any NSAIDS/supplements? Ibuprofen (Advil, Motrin, Midol) BID; None Is patient taking aspirin? no If yes, is it prescribed? no If yes, what reason is it prescribed? Is patient taking Antibiotics? No Is patient a diabetic? No Hemoglobin A1C? Has patient been on greater than 40mg of steroid 14 days or longer? No Has patient had any steroid injections anywhere in his/her body within the last two weeks? No Does patient need sedation? no Does patient need NPO guidelines? no Does patient have allergies to contrast/local anesthetic/steroid? No Based on the information provided above and after discussion with the patient, the following actions will be taken: _X_If no change in pain characteristics or medical history review: pended order for repeat procedure routed to Primary Pain Clinic Provider Dr. Mccabe. * Telephone Encounter - Enedina Elias RN - 08/26/2024 12:35 PM EDT Copied from CRM #[id number]. Topic: Specialty Dept CRMs - Orders >> Aug 25, 2024 11:01 AM Kati Ramires wrote: Orders Request Specialist: Kathy Mccabe MD Type of Request: [x] Input orders Type/Name of Order: Other: patient is looking for an order for an injection to be entered. Patient called in this morning looking to schedule an injection as discussed in Dr. Mccabe's last office notes with patient. It sounded like patient was supposed to reach out to his PCP just to make sure it's okay to do the injection. Patient states that he did see his PCP after he saw us on 07/26/24. It looks like we have his PCP's notes scanned in under the media tab. It looks like in those notes patients PCP has okayed him having the procedure with us. Please call patient to help patient get scheduled once orders have been entered. Thank you. Reviewed chart. MORENO: 07/16/24 6. Further procedures recommended: Discussed a trial of bilateral L3, 4, 5 medial branch blocks under fluoroscopy guidance followed by radiofrequency ablations. Patient is interested in scheduling. 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 Therefore he will discuss the possibility of holding anticoagulation for proposed lumbar procedures with his primary care provider and his upcoming follow-up soon. If cleared by primary care provider, patient will call to schedule above discussed procedure............. 9. Follow up: Patient will call to discuss procedure as discussed above if cleared by primary care provider. 07/26/24 OVN from Lianet Muñoz CREDIT HISTORIAN recommends Lovenox bridge. Will forward message to Dr. Mccabe for possible approval to proceed. documented in this encounter Plan of Treatment Upcoming Encounters Date Type Department Care Team (Late st Contact Info) Description 12/31/2024 10:00 AM EST Office Visit [facility] [place] [phone] Karlo Desir MD [facility] [place] [address] 09/26/2050 Hospital En[place] [phone] Karlo Desir MD [facility] [place] [address] Scheduled Procedures Name Priority Associated Diagnoses Date/Ti me INJECTION, FACET JOINT, W\FLUORO, LUMBAR, 2ND LEVEL (WRVU 1) Spondylosis of lumbar region without myelopathy or radiculopathy INJECTION, FACET JOINT, W\FLUORO, LUMBAR, SINGLE (WRVU 1.52) Spondylosis of lumbar region without myelopathy or radiculopathy documented as of this encounter Visit Diagnoses Not on filedocumented in this encounter Care Teams Director Of Quality Improvement Relationship Specialty Start Date End Date Lianet Muñoz APRN [address] [place] [id number] PCP - General Geriatric Medicine 11/20/23 documented as of this encounter
--- OUTSIDE RECORDS SUMMARY | 2024-11-12 14:24 | XMS_ITS | Encounter Summary ---
Author Organization [facility] Address [address] [place] [address] Care Team Providers Care Retail Center Receptionist Name Role Phone Reagan Carcamo MD Primary Care Provider Rafaela pena Encounter Details Date Type Department Care Team (Late st Contact Info) Description 02/09/2021 Lab Requisition [facility] Pathology & Laboratory Medicine - [facility] [address] [place], [place] [phone] Outr Resulting Lab, Provider Social History Tobacco [...] Unknown 02/09/2021 10:31 EDT 02/09/2021 15:45 EDT us Provider Outr Resulting Lab MICROBIOLOGY - GENER AL ORDERABLES Final Result [facility] [address] [place] [address] * COVID-19 TESTING (02/09/2021 10:31 EDT) COVID-19 rt-PCR Result Negative Negative 02/10/2021 14:58 EDT [facility] Comment: This test has not [...] epidemiological information. Testing was performed using the roys SARS-CoV-2 assay ([employer] on the Rosy 6800 System Performing Lab Rosy [address] [facility] Lab 02/10/2021 14:58 EDT [facility] Swab 02/09/2021 10:3 1 EDT 02/09/2021 15:45 EDT us Provider Outr Resulting Lab MICROBIOLOGY - GENER AL ORDERABLES Final Result [facility] [address] [place] [address] documented in this encounter Visit Diagnoses Not on filedocumented in this encounter Care Teams Retail Center Receptionist Relationship Specialty Start Date End Date Reagan Carcamo MD PCP - General 05/25/14 documented as of this encounter
--- OUTSIDE RECORDS SUMMARY | 2024-11-12 14:24 | XMS_ITS | Encounter Summary ---
Author Organization [facility] [place] [address] Care Team Providers Care Drop Forge Operator Name Role Phone Lianet Muñoz APRN Primary Care Provider [phone] Encounter Details Date Type Department Care Team (Late st Contact Info) Description 10/26/2024 Orders Only [facility] [place] [phone] Karlo Desir MD [facility] [place] [address] Spondylosis of lumbar region without myelopathy or radiculopathy (Primary Dx) Social History Tobacco Use Types Packs/Day Years Used Date Smoking Tobacco: Never Smokeless Tobacco: Never Sex and Gender Information Value Date Recorded Sex Assigned at Not on file Gender Identity Not on file Sexual Orientation Not on file documented as of this encounter Plan of Treatment Upcoming Encounters Date Type Department Care Team (Late st Contact Info) Description 12/31/2024 10:00 AM EST Office Visit [facility] [place] [phone] Karlo Desir MD [facility] [place] [address] 09/26/2050 Hospital [place] [phone] Karlo Desir MD [facility] [place] [address] Scheduled Orders Name Type Priority Associated Diagnoses Orde r Schedule SURGICAL CASE REQUEST: INJECTION, FACET JOINT, W\FLUORO, LUMBAR, 2ND LEVEL (WRVU 1), INJECTION, FACET JOINT, W\FLUORO, LUMBAR, SINGLE (WRVU 1.52) Procedures Routine Spondylosis of lumbar region without myelopathy or radiculopathy Ordered: 10/26/2024 Scheduled Procedures Name Priority Associated Diagnoses Date/Ti me INJECTION, FACET JOINT, W\FLUORO, LUMBAR, 2ND LEVEL (WRVU 1) Spondylosis of lumbar region without myelopathy or radiculopathy INJECTION, FACET JOINT, W\FLUORO, LUMBAR, SINGLE (WRVU 1.52) Spondylosis of lumbar region without myelopathy or radiculopathy documented as of this encounter Visit Diagnoses Diagnosis Spondylosis of lumbar region without myelopathy or radiculopathy- Primary Lumbosacral spondylosis without myelopathy documented in this encounter Care Teams Drop Forge Operator Relationship Specialty Start Date End Date Lianet Muñoz APRN [address] [address] PCP - General Geriatric Medicine 11/20/23 documented as of this encounter
--- OUTSIDE RECORDS SUMMARY | 2024-11-12 14:24 | XMS_ITS | Encounter Summary ---
Author Organization [facility], Later [facility] Address [facility] [place] [address] Care Team Providers Care Inventory Clerk Name Role Phone Lianet Muñoz APRN Primary Care Provider [phone] Reason for Visit * Reason Onset Date Comments Post Procedure Call 10/26/[address] 1 st bi lateral LMBB's Encounter Details Date Type Department Care Team (Late st Contact Info) Description 10/26/2024 Telephone [facility] [place] [phone] Pat Daley, RN Post Procedure Call (Post [...] Telephone Encounter - Pat Daley RN - 10/26/2024 9:49 AM EST Post-procedure telephone follow up: patient reporting their response to the lumbar medial branch block procedure performed on 10/18/24 in the [facility] by Karlo Desir MD . This is patient's: first medial branch block Patient reports that after the procedure they experienced: _x_ Patient reported pre-block numeric pain scale: 5 /10 1 hour post block: 4 /10 2 hour post block: 3 /10 3 hour post block: 2 /10 4 hour post block: _x_ Post-procedure pain has been reduced by 80%. (> 80% Medicare/MVP/Medicaid) _x_ If relief > 80% with ability to perform painful maneuvers; schedule 2nd MBB: yes _x_ Post-procedure pain has been reduced by 80%. (> 50% all other insurers) _x_ Pain relief: moderate If pain is reduced, it lasted: No 4 hours or greater What is current pain score on a scale of 0-10? 5 Does patient's pain make activities of daily living difficult? If yes, please describe what activity and level of difficulty. Yes. Hard to walk do to the pain. Hard to get in and out of chair. Can't vacuum house. Pertinent recent trauma or surgery? no If yes; consult w referring provider If No, proceed Review of Pertinent Medical History for changes since last MBB: - h/o Thrombocytopenia/bleeding tendency/platelet dysfunction: no - h/o Liver disease; abnormal liver function: no - h/o Chronic kidney disease (CKD); abnormal kidney function: no - Patient on dialysis? no -Patient has pacemaker/defibrillator: no Is patient taking an anticoagulant? Xarelto (Rivaroxaban) Is patient taking any NSAIDS/supplements? Ibuprofen (Advil, Motrin, Midol) Is patient taking aspirin? no If yes, is it prescribed? no If yes, what reason is it prescribed? Is patient taking Antibiotics? No Is patient a diabetic? No Hemoglobin A1C? Has patient been on greater than 40mg of steroid 14 days or longer? No Has patient had any steroid injections anywhere in his/her body within the last two weeks? No Does patient request sedation? no Does patient need NPO guidelines? no Does patient have allergies to contrast/local anesthetic/steroid? No Any changes? no Based on the information provided above and after discussion with the patient, the following actions will be taken: _x_ Patient meets criteria to proceed to second Bilateral at L3, L4, and L5- lumbar medial patricia, order will be pended to Dr. Desir Patient denies further questions at this time and expressed understanding of plan. Encouraged patient to call pain clinic RN for future questions or concerns. documented in this encounter Plan of Treatment Upcoming Encounters Date Type Department Care Team (Late st Contact Info) Description 12/31/2024 10:00 AM EST Office Visit [facility] [place] [address] Karlo Desir MD [facility] [place] [address] 09/26/2050 Hospital Encounter Pain Management [facility] [place] [address] Karlo Desir MD [facility] [place] [address] Scheduled Procedures Name Priority Associated Diagnoses Date/Ti me INJECTION, FACET JOINT, W\FLUORO, LUMBAR, 2ND LEVEL (WRVU 1) Spondylosis of lumbar region without myelopathy or radiculopathy INJECTION, FACET JOINT, W\FLUORO, LUMBAR, SINGLE (WRVU 1.52) Spondylosis of lumbar region without myelopathy or radiculopathy documented as of this encounter Visit Diagnoses Not on filedocumented in this encounter Care Teams Inventory Clerk Relationship Specialty Start Date End Date Lianet Muñoz APRN [address] [place] [id number] PCP - General Geriatric Medicine 11/20/23 documented as of this encounter
--- OUTSIDE RECORDS SUMMARY | 2024-11-12 14:24 | XMS_ITS | Encounter Summary ---
Author Organization [facility] [place] [address] Care Team Providers Care Traffic Engineer Name Role Phone Lianet Muñoz APRN Primary Care Provider [phone] Reason for Visit * Reason Comments Back Pain * Consultation (Routine) - Closed Specialty Diagnoses / Procedures Referred By Contac t Referred To Contact [facility] and Sp[facility] Center Diagnoses Other intervertebral disc displacement, lumbar region lumbar radiculopathy/MRI 03/31/24 in [facility] Dion Reyes, [address] [place] [address] [facility] [place] [address] Referral ID Status Reason Start Date Expiration Date V isits Requested Visits Authorized [id number] Closed Consult, Test & Treat PCP Updated and/or Approved 04/09/2024 04/09/2025 1 1 Encounter Details Date Type Department Care Team (Latest Contact Info) Description 07/16/2024 10:00 AM EDT Office Visit [place] [phone] Kathy Mccabe MD [facility] [place] [address] Chronic pain syndrome; Spondylosis of lumbar region without myelopathy or radiculopathy Social History Tobacco Use Types Packs/Day Years Used Date Smoking Tobacco: Never Smokeless Tobacco: Never Tobacco Cessation:Counseling Given: Not Answered Sex and Gender Information Value Date Recorded Sex Assigned at Not on file Gender Identity Not on file Sexual Orientation Not on file documented as of this encounter Last Filed Vital Signs Vital Sign Reading Time Taken Comments Blood Pressure 165/74 07/16/2024 10:00 AM EDT Pulse 53 07/16/2024 10:00 AM EDT Temperature - - Respiratory Rate - - Oxygen Saturation 97% 07/16/2024 10:00 AM EDT Inhaled Oxygen Concentration - - Weight 120.2 kg (265 lb) 07/16/2024 10:00 AM EDT Height 175.3 cm (5' 9) 07/16/2024 10:00 AM EDT Body Mass Index 39.13 07/16/2024 10:00 AM EDT documented in this encounter Progress Notes * Kathy Mccabe MD - 07/16/2024 10:00 AM EDT [facility] Initial Consultation Note Date of visit: 07/16/24 : 1945 Consulting Physician: Dion Reyes, DO [address] [place] [address] Reason for consultation: Low back pain Chief Complaint Patient presents with Back Pain History of Present Illness: Blue Aldrich is a 79 y.o. male with history of atrial fibrillationon chronic anticoagulation with Xarelto, thyroid nodule, CKD, hypertension, DJD, who presents for initial evaluation. The patient reports that their low back pain problems started insidiously 1 year ago. Pain worsened gradually. Pain location: Bilateral low back pain- no radiation Quality and timing of pain: aching Pain rating: intensity 6 on a 0-10 scale. Aggravating factors include: walking Relieving factors include: rest Denies red flags including: bowel or bladder incontinence, fever, chills, saddle anesthesia, profound motor loss, history of cancer, history of immune compromise, weight loss. Current relevant treatments include: Xarelto Ibuprofen PRN Tylenol PRN Pain medications are being prescribed by PCP/OTC. Previous pain treatments included: Blue Aldrich hasn't been seen at a pain clinic in the past. Medications: yes PT: yes- last in 03/19; Has a HEP; > 6 weeks Psychology: no Acupuncture: no care companion: no TENS Unit: no Injections: no Surgery: no Diagnostic Tests: In addition to the formal radiology read, I independently reviewed the imaging and shared my interpretation with the patient. Lumbar spine MRI completed on 03/31/2024 showed: Left paracentral L2-L3 disc extrusion with moderate to severe L2-L3 spinal canal stenosis. Severe L3-L4 and severe L4-L5 spinal canal stenosis. Review of Electronic Chart: Today I have also reviewed available medical information in the [place] [facility] including relevant provider notes, laboratory work, and imaging. Past Medical History: Reviewed Past Surgical History: Reviewed Medications: Current Outpatient Medications: albuteroL 90 mcg/actuation inhaler (HFA), Inhale 2 puffs into the lungs 3 times daily as needed., Disp: , Rfl: amlodipine-valsartan (Exforge) 10-160 mg tablet, Take 1 tablet by mouth daily., Disp: , Rfl: metoprolol tartrate (Lopressor) 100 mg tablet, Take 100 mg by mouth 2 times daily., Disp: , Rfl: omeprazole 20 mg Tablet, Delayed Release (E.C.), Take 20 mg by mouth daily., Disp: , Rfl: bumetanide (Bumex) 2 mg tablet, Take 1 mg by mouth 2 times daily., Disp: , Rfl: METOPROLOL SUCCINATE ORAL, Take 100 mg by mouth daily., Disp: , Rfl: magnesium oxide (Mag-Ox) 400 mg (241.3 mg magnesium) Tablet, Take 400 mg by mouth daily., Disp: , Rfl: simvastatin (Zocor) 10 mg tablet, Take 10 mg by mouth nightly., Disp: , Rfl: doxazosin (Cardura) 2 mg tablet, Take 2 mg by mouth nightly., Disp: , Rfl: rivaroxaban (Xarelto) 15 mg tablet, Take 15 mg by mouth daily., Disp: , Rfl: ferrous gluconate (Ferate) 324 mg (37.5 mg iron) tablet, Take 324 mg by mouth daily., Disp: , Rfl: losartan (Cozaar) 100 mg tablet, Take 100 mg by mouth daily., Disp: , Rfl: amLODIPine (Norvasc) 10 mg tablet, Take 10 mg by mouth daily., Disp: , Rfl: Allergies: No Known Allergies Social History: Social History Socioeconomic History Marital status: Spouse name: Not on file Number of children: Not on file Years of education: Not on file Highest education level: Not on file Occupational History Not on file Tobacco Use Smoking status: Never Smokeless tobacco: Never Vaping Use Vaping status: Never Used Substance and Sexual Activity Alcohol use: Not on file Drug use: Not on file Sexual activity: Not on file Other Topics Concern Not on file Social History Narrative Not on file Social Determinants of Health Financial Resource Strain: Not on file Food Insecurity: Not on file Transportation Needs: Not on file Physical Activity: Not on file Intimate Partner Violence: Not on file Housing Stability: Not on file History of chemical dependency treatment: denies 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 HENT: No recent hearing changes. No difficulty swallowing. Eyes: No recent vision changes. Respiratory: No cough or shortness of breath. Cardiovascular: No chest pain or syncope. GI: No diarrhea, nausea, vomiting, or constipation. : No dysuria, hesitancy, or urgency. No incontinence. Musculoskeletal: No muscle weakness. Low back pain Skin: No rashes or lesions. Neurologic: No numbness/tingling. No difficulty with balance. Psychiatric: Mood ok. No SI/HI. Heme/Lymph/Imm: No easy bleeding or brusing. BP 165/74 Pulse 53 Ht 175.3 cm (5' 9) Wt 120.2 kg (265 lb) SpO2 97% BMI 39.13 kg/m?? PHYSICAL EXAM: General: Patient is seated comfortably in NAD, well-groomed. HEENT: Head atraumatic, EOMI. Respiratory: Breathing comfortably on RA. Cardiovascular: no swelling Abdominal: non-distended Skin: No appreciable rashes or skin breakdown Psych: Appropriate affect, A&Ox3 , answers questions appropriately Musculoskeletal: Inspection - No gross appendicular or axial deformities Bilateral straight leg raise test negative Bilateral lumbar paraspinal tenderness with positive lumbar facet loading tests at L4-L5 and L5-S1 facet joints Bilateral PSIS tenderness negative Neurologic: search specialist - grossly intact Reflexes - 1+ and symmetric in bilateral patellae, and Achilles. No ankle clonus. Motor - 5/5 in all planes of motion in both lower extremities. Sensation - Intact to light touch throughout lower extremities Gait/Station: Transitions from exam room chair to table without difficulty. Assessment: Blue Aldrich is a 79 y.o. male with history of atrial fibrillation on chronic anticoagulation with Xarelto, thyroid nodule, CKD, hypertension, DJD: #1 chronic bilateral low back axial pain which worsens with prolonged walking, likely related to a combination of lumbar facet arthropathy and lumbar spinal stenosis with neurogenic claudication. MRIof lumbar spine demonstrates severe L3-L4 and L4-L5 spinal canal stenosis with moderate to severe L2-L3 spinal canal stenosis. Patient was educated about signs and symptoms of cauda equina syndrome including new numbness, weakness, bladder bowel incontinence or saddle anesthesia. Patient was instructed to call us or go to the emergency room if they experiences any of the symptoms. Patient verbalized understanding. #2 chronic pain syndrome Plan: Diagnosis reviewed, treatment option addressed, and risk/benefits discussed. Self-care instructionsgiven. I am recommending a multidisciplinary treatment plan to help this patient better manage his pain. Physical Therapy: None at this point Clinical Health Psychologist to address issues of relaxation, behavioral change, coping style, and other factors important to improvement: None Self Care Recommendations: Recommend compliance to exercises taught by physical therapy. Diagnostic Studies: None at this point Medication Management: No new medications Further procedures recommended: Discussed a trial of bilateral L3, 4, 5 medial branch blocks under fluoroscopy guidance followed by radiofrequency ablations. Patient is interested in scheduling. 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 Therefore he will discuss the possibility of holding anticoagulation for proposed lumbar procedures with his primary care provider an d his upcoming follow-up soon. If cleared by primary care provider, patient will call to schedule above discussed procedure. Referrals: None at this point Release of information: Records reviewed Follow up: Patient will call to discuss procedure as discussed above if cleared by primary care provider. Kathy Mccabe MD [facility] Room Cutter of Anesthesiology [facility] [address] [address] / [facility] CC: Dion Reyes, [address] [place] [address] documented in this encounter Plan of Treatment Upcoming Encounters Date Type Department Care Team (Late st Contact Info) Description 12/31/2024 10:00 AM EST Office Visit [place] [address] Karlo Desir MD [facility] [place] [address] 09/26/2050 Hospital [place] [address] Karlo Desir MD [facility] [place] [address] Scheduled Procedures Name Priority Associated Diagnoses Date/Ti me INJECTION, FACET JOINT, W\FLUORO, LUMBAR, 2ND LEVEL (WRVU 1) Spondylosis of lumbar region without myelopathy or radiculopathy INJECTION, FACET JOINT, W\FLUORO, LUMBAR, SINGLE (WRVU 1.52) Spondylosis of lumbar region without myelopathy or radiculopathy documented as of this encounter Visit Diagnoses Diagnosis Chronic pain syndrome Spondylosis of lumbar region without myelopathy or radiculopathy Lumbosacral spondylosis without myelopathy documented in this encounter Care Teams Traffic Engineer Relationship Specialty Start Date End Date Lianet Muñoz APRN [address] [place] [address] PCP - General Geriatric Medicine 11/20/23 documented as of this encounter
--- OUTSIDE RECORDS SUMMARY | 2024-11-12 14:24 | XMS_ITS | Encounter Summary ---
Author Organization [facility] Address [address] [place] [address] Care Team Providers Care Doper Operator Name Role Phone Unavailable Primary Care Provider Unavailabl e Encounter Details Date Type Department Care Team (Late st Contact Info) Description 05/20/2014 Results Only [facility] Laboratory Services - [facility] ([facility]) [address] [place] [address] Uriel Aragon, DO [address] [facility] [address] [place] [address] Social History Tobacco Use Types Packs/Day Years [...] ? RICARDO WALLACE ? Accession #: ? [id number] ? : ? 1945 (Age: 69) ??M [...] 05/21/2014 7:27 EDT Uriel Aragon DO PATHOLOGY ORDERABLES Fi nal Result [facility] [address] [place] [address] documented in this encounter Visit Diagnoses Not on filedocumented in this encounter
--- OUTSIDE RECORDS SUMMARY | 2024-11-12 14:24 | XMS_ITS | Encounter Summary ---
Author Organization [facility]ending [facility] Address [facility] [place] [address] Care Team Providers Care Ferryboat Operator Cable Name Role Phone Lianet Muñoz APRN Primary Care Provider [phone] Reason for Visit * Auth/Cert (Routine) Specialty [...] LUMBAR, SINGLE (WRVU 1.52) Karlo Desir MD [facility] [address] [facility] Referral ID Status Reason Start Date Expiration Date Visits Re quested Visits Authorized [id number] 1 1 Encounter Details Date Type Department Care Team (Latest Contact Info) Description 10/18/2024 12:59 PM EST - 10/18/2024 3:29 PM EST Hospital Encounter [place] [address] Karlo Desir MD [facility] [address] Spondylosis of lumbar region without myelopathy or radiculopathy; Chronic pain syndrome Discharge Disposition: Home Social History Tobacco Use [...] Rate - - Oxygen Saturation 93% 10/18/2024 3:20 PM EST Inhaled Oxygen Concentration - - [...] date: 10/18/2024 Attending Physician: Karlo Desir MD [facility] PREPROCEDURE HISTORY AND [...] Attending Physician [facility] [place] [address] / documented in this encounter Miscellaneous Notes * Op Note - Karlo Desir MD - 10/18/2024 3:05 PM EST Pain Management Operative Note Patient Name: Blue Aldrich : [id number] MR#: [id number] Case Date: 10/18/2024 Surgeon: Surgeons and Role: [...] Attending Physician [facility] [address] [address] / CC: Kathy Mccabe MD [facility] [address] [place] [address] documented in this encounter Plan of Treatment Upcoming Encounters Date Type Department Care Team (Late st Contact Info) Description 12/31/2024 10:00 AM EST Office Visit [facility] [place] [phone] Karlo Desir MD [facility] [place] [address] 09/26/2050 Hospital Encounter [place] [address] Karlo Desir MD [facility] [place] [address] Scheduled Procedures Name Priority Associated Diagnoses Date/Ti me INJECTION, FACET JOINT, W\FLUORO, LUMBAR, 2ND LEVEL (WRVU 1) Spondylosis of lumbar region without myelopathy or radiculopathy INJECTION, FACET JOINT, W\FLUORO, LUMBAR, SINGLE (WRVU 1.52) Spondylosis of lumbar region without myelopathy or radiculopathy documented as of this encounter Procedures Procedure Name Priority Date/Time Associated Diagnosis Comments Injection Pv Facet Joint Lumbar/Sacral Single Level (52869) 10/18/2024 3:00 PM EST Spondylosis of lumbar region without myelopathy or radiculopathy Chronic pain syndrome Injection Pv Facet Joint Lumbar/Sacral Second Level (88510) 10/18/2024 3:00 PM EST Spondylosis of lumbar [...] myelopathy documented in this encounter Care Teams Ferryboat Operator Cable Relationship Specialty Start Date End Date Lianet Muñoz APRN [address] [facility] [place] [address] PCP - General Geriatric Medicine 11/20/23 documented as of this encounter
--- OUTSIDE RECORDS SUMMARY | 2024-11-12 14:24 | XMS_ITS | Encounter Summary ---
Author Organization [facility] Address [facility] [address] Care Team Providers Care Certified Adaptive Physical Educator Name Role Phone Gianni Muñozroxanna GHOSH Primary Care Provider [phone] Encounter Details Date Type Department Care Team (Late st Contact Info) Description 09/21/2024 Telephone [place] [address] Enedina Elias, RN Social History Tobacco Use Types Packs/Day Years Used Date Smoking Tobacco: Never Smokeless Tobacco: Never Sex and Gender Information Value Date Recorded Sex Assigned at Not on file Gender Identity Not on file Sexual Orientation Not on file documented as of this encounter Miscellaneous Notes * Telephone Encounter - Enedina Elias, MAYRA - 09/21/2024 10:47 AM EST Iags rec'd: Received: 09/17/24 3:08 PM Kathy Mccabe MD sent to Beti Otoole; Enedina Elias, RN If PCP think a Lovenox bridge is needed, then they need to prescribe and manage it. Andree- please reach out to PCP/prescriber. In the meanwhile, please schedule transition care visit with . Received: 09/17/24 2:57 PM Beti Otoole sent to Kathy Mccabe MD; Enedina Elias, RN Patient has called to schedule, however we did not get clearance from provider to hold medication. Please advise on how to proceed. OUTGOING call to PCP's office. 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 Incoming call from [place] and Int Med (AVIS Muñoz's office). She questioned what procedurept is having completed (MBB), so explained the series to her. Also, informed of transitioning of care to Dr. Desir, and pt has appt on 11/12 for that. Celina will RC to me, once she speaks to AVIS Muñoz. documented in this encounter Plan of Treatment Upcoming Encounters Date Type Department Care Team (Late st Contact Info) Description 12/31/2024 10:00 AM EST Office Visit [place] [address] Karlo Desir MD [facility] [place] [address] 09/26/2050 Hospital Encounter [place] [address] Karlo Desir MD [facility] [place] [address] Scheduled Procedures Name Priority Associated Diagnoses Date/Ti me INJECTION, FACET JOINT, W\FLUORO, LUMBAR, 2ND LEVEL (WRVU 1) Spondylosis of lumbar region without myelopathy or radiculopathy INJECTION, FACET JOINT, W\FLUORO, LUMBAR, SINGLE (WRVU 1.52) Spondylosis of lumbar region without myelopathy or radiculopathy documented as of this encounter Visit Diagnoses Not on filedocumented in this encounter Care Teams Certified Adaptive Physical Educator Relationship Specialty Start Date End Date Lianet Muñoz APRN [address] [place] [address] PCP - General Geriatric Medicine 11/20/23 documented as of this encounter
--- OUTSIDE RECORDS SUMMARY | 2024-11-12 14:24 | XMS_ITS | Encounter Summary ---
Author Organization [facility] Address [address] [place] [address] Care Team Providers Care Assistant Maintenance Manager Name Role Phone Unavailable Primary Care Provider Unavailabl e Encounter Details Date Type Department Care Team (Late st Contact Info) Description 09/07/[address] [facility] conversion [address] [place] [address] Uriel Aragon, [address] [facility] [address] [place], [place] [id number] Social History Tobacco Use Types Packs/Day Years [...] ? RICARDO WALLACE ? Accession #: ? [id number] ? : ? 1945 (Age: 59) ??M [...] submitted in toto in one cassette. ([facility])/[facility] End of Report [facility] 09/07/2004 09/07/2004 15: 19 EST us Uriel Aragon DO PATHOLOGY ORDERABLES Fi nal Result [facility] [address] [place] [address] documented in this encounter Visit Diagnoses Not on filedocumented in this encounter
--- OUTSIDE RECORDS SUMMARY | 2024-11-12 14:24 | XMS_ITS | Clinical Summary ---
Author Organization [facility] Address [place] [address] Care Team Providers Care Food Cooking Machine Operator Name Role Phone Lianet Muñoz APRN Primary Care Provider [phone] Allergies No known active allergies Medications Medication Sig Dispensed Refills Start Date End Date Status losartan (Cozaar) 100 mg tablet Take 100 mg by mouth daily. Active omeprazole 20 mg Tablet, Delayed Release (E.C.) Take 20 mg by mouth daily. Active bumetanide (Bumex) 2 mg tablet Take 1 mg by mouth 2 times daily. Active METOPROLOL SUCCINATE ORAL Take 100 mg by mouth daily. Active magnesium oxide (Mag-Ox) 400 mg (241.3 mg magnesium) Tablet Take 400 mg by mouth daily. Active simvastatin (Zocor) 10 mg tablet Take 10 mg by mouth nightly. Active doxazosin (Cardura) 2 mg tablet Take 2 mg by mouth nightly. Active amLODIPine (Norvasc) 10 mg tablet Take 10 mg by mouth daily. Active rivaroxaban (Xarelto) 15 mg tablet Take 15 mg by mouth daily. Active ferrous gluconate (Ferate) 324 mg (37.5 mg iron) tablet Take 324 mg by mouth daily. Active albuteroL 90 mcg/actuation inhaler (HFA) Inhale 2 puffs into the lungs 3 times daily as needed. 09/11/2021 Active amlodipine-valsartan (Exforge) 10-160 mg tablet Take 1 tablet by mouth daily. 06/16/2024 Active metoprolol tartrate (Lopressor) 100 mg tablet Take 100 mg by mouth 2 times daily. 05/15/2024 Active Active Problems Problem Noted Date Diagnosed Date Spondylosis of lumbar region without myelopathy or radiculopathy 10/18/2024 Encounters Date Type Department Care Team Description 10/26/2024 Orders Only [facility] [place] [phone] Karlo Desir MD Spondylosis of lumbar region without myelopathy or radiculopathy (Primary Dx) 10/26/2024 Telephone [facility] [place] [phone] Pat Daley, MAYRA Post Procedure Call (Post 1 st bilateral LMBB's) 10/19/2024 Telephone [facility] [place] [address] Pat Daley RN Post Procedure Call (Post 1 st bilateral LMBB's) 10/18/2024 2:30 PM EST - 10/18/2024 3:00 PM EST Surgery [facility] [place] [phone] Karlo Desir MD INJECTION, FACET JOINT, W\FLUORO, LUMBAR, 2ND LEVEL (WRVU 1) 10/18/2024 2:15 PM EST Ancillary Procedure [facility] [place] [phone] Karlo Desir MD 10/18/2024 12:59 PM EST - 10/18/2024 3:29 PM EST Hospital Encounter [facility] [place] [phone] Karlo Desir MD Spondylosis of lumbar region without myelopathy or radiculopathy; Chronic pain syndrome Discharge Disposition: Home 10/18/2024 Travel 10/01/2024 Telephone [facility] [place] [address] Dianne Perry RN 09/24/2024 Telephone [facility] [place] [address] Sofya Walton RN 09/21/2024 Telephone [facility] [place] [address] Enedina Elias, RN 09/08/2024 Notes Only [facility] [place] [address] SydnieBeti ferrell Pamela 08/31/2024 Notes Only [facility] [place] [address] Hima Marshall 08/27/2024 Orders [place] [facility] [place] [address] Kathy Mccabe MD Spondylosis of lumbar region without myelopathy or radiculopathy (Primary Dx); Chronic pain syndrome 08/26/2024 Telephone [facility] [place] [address] Enedina Elias, RN from Last 3 Months Social History Tobacco Use Types Packs/Day Years Used Date Smoking Tobacco: Never Smokeless Tobacco: Never Tobacco Cessation:Counseling Given: Not Answered Sex and Gender Information Value Date Recorded Sex Assigned at Not on file Gender Identity Not on file Sexual Orientation Not on file Last Filed Vital Signs Vital Sign Reading [...] Mass Index 39.13 10/18/2024 2:46 PM EST Plan of Treatment Upcoming Encounters Date Type Department Care Team (Late st Contact Info) Description 12/31/2024 10:00 AM EST Office Visit [facility] [place] [address] Karlo Desir MD [facility] [place] [address] 09/26/2050 Hospital Encounter [place] [address] Karlo Desir MD [facility] [place] [address] Scheduled Procedures Name Priority Associated Diagnoses Date/Ti me INJECTION, FACET JOINT, W\FLUORO, LUMBAR, 2ND LEVEL (WRVU 1) Spondylosis of lumbar region without myelopathy or radiculopathy INJECTION, FACET JOINT, W\FLUORO, LUMBAR, SINGLE (WRVU 1.52) Spondylosis of lumbar region without myelopathy or radiculopathy Health Maintenance Due Date Last Done Comments Tetanus/Diphtheria/Pertussis Vaccines (1 - Tdap) 1962 Pneumoccocal Vaccine: 50+ (1 of 1 - PCV) 1993 Zoster vaccine (1 of 2) 1993 Advance Directive 1998 RSV Vaccine (1 - 1-dose 75+ series) 2018 Covid-19 Vaccine (4 - season) 2024 10/15/2023, 09/16/2022, 03/13/2022 Influenza (Flu) vaccine (1 o f 1 - Influenza standard series) 06/27/2024 Procedures Procedure Name Priority Date/Time Associated Diagnosis Comments FILM LIBRARY STORAGE ONLY PAIN CLINIC C ARM Routine 10/18/2024 4:12 PM EST Injection Pv Facet Joint Lumbar/Sacral Single Level (01077) 10/18/2024 3:00 PM EST Spondylosis of lumbar region without myelopathy or radiculopathy Chronic pain syndrome Injection Pv Facet Joint Lumbar/Sacral Second Level (61324) 10/18/2024 3:00 PM EST Spondylosis of lumbar region without myelopathy or radiculopathy Chronic pain syndrome INJECTION, FACET JOINT,W\FLUORO, LUMBAR, SINGLE Routine 10/18/2024 2:35 PM EST Spondylosis of lumbar region without myelopathy or radiculopathy Chronic pain syndrome INJECTION, FACET JOINT,W\FLUORO, LUMBAR, 2ND LEVEL Routine 10/18/2024 2:35 PM EST Spondylosis of lumbar region without myelopathy or radiculopathy Chronic pain syndrome from Last 3 Months Results * Film Library- Storage Only pain Clinic C-Arm (10/18/2024 4:12 PM EST) Narrative CORINNA SHULTZ - 10/18/2024 4:12 PM EST See PACS for result report. Karlo Desir MD IMG FILM LIBRARY ORD ERABLES [place], [place] from Last 3 Months Care Teams Food Cooking Machine Operator Relationship Specialty Start Date End Date Lianet Muñoz APRN [address] [place] [address] PCP - General Geriatric Medicine 11/20/23
--- OUTSIDE RECORDS SUMMARY | 2024-11-12 14:24 | XMS_ITS | Encounter Summary ---
Author Organization [facility] Address [facility] [place] [address] Care Team Providers Care Valve Seater Operator Name Role Phone Lianet Muñoz APRN Primary Care Provider [phone] Encounter Details Date Type Department Care Team (Late st Contact Info) Description 08/31/2024 Notes Only [facility] [place] [address] Hima Marshall Social History Tobacco Use Types Packs/Day Years Used Date Smoking Tobacco: Never Smokeless Tobacco: Never Sex and Gender Information Value Date Recorded Sex Assigned at Not on file Gender Identity Not on file Sexual Orientation Not on file documented as of this encounter Progress Notes * Hima Marshall - 08/31/2024 9:37 AM EST Patient: Blue Aldrich [id number] Request for the above named patient to temporarily stop Xarelto for 3 days prior to requested Lumbar Medial Branch Blocks x2 and Lumbar Radiofrequency Ablation has been faxed to: Dr. Lianet Muñoz,[place] office. Fax number: [phone] Fax confirmation that request received at the above named doctor's office: 08/31 (date stamp on fax confirmation) 9:38 AM (time stamp on fax confirmation) Paper documentation in Pain Management Center Scheduling Desk. Hima Marshall * Hima Marshall - 08/31/2024 9:37 AM EST Resent x2 09/03/24 documented in this encounter Plan of Treatment Upcoming Encounters Date Type Department Care Team (Late st Contact Info) Description 12/31/2024 10:00 AM EST Office Visit [facility] [place] [address] Karlo Desir MD [facility] [place] [address] 09/26/2050 Hospital [place] [address] Karlo Desir MD [facility] [place] [address] Scheduled Procedures Name Priority Associated Diagnoses Date/Ti me INJECTION, FACET JOINT, W\FLUORO, LUMBAR, 2ND LEVEL (WRVU 1) Spondylosis of lumbar region without myelopathy or radiculopathy INJECTION, FACET JOINT, W\FLUORO, LUMBAR, SINGLE (WRVU 1.52) Spondylosis of lumbar region without myelopathy or radiculopathy documented as of this encounter Visit Diagnoses Not on filedocumented in this encounter Care Teams Valve Seater Operator Relationship Specialty Start Date End Date Lianet Muñoz APRN [address] [place] [address] PCP - General Geriatric Medicine 11/20/23 documented as of this encounter
--- OUTSIDE RECORDS SUMMARY | 2024-11-12 14:24 | XMS_ITS | Encounter Summary ---
Author Organization [facility] Address [facility] [place] [address] Care Team Providers Care Rivet Sticker Name Role Phone Lianet Muñoz APRN Primary Care Provider [phone] Encounter Details Date Type Department Care Team (Latest Contact Info) Description 07/16/2024 Travel Social History Tobacco Use Types Packs/Day [...] Office Visit [place] [address] Karlo Desir MD [facility] [place] [address] 09/26/2050 Hospital [place] [address] Karlo Desir MD [facility] [place] [address] Scheduled Procedures Name Priority Associated Diagnoses Date/Ti me INJECTION, FACET JOINT, W\FLUORO, LUMBAR, 2ND LEVEL (WRVU 1) Spondylosis of lumbar region without myelopathy or radiculopathy INJECTION, FACET JOINT, W\FLUORO, LUMBAR, SINGLE (WRVU 1.52) Spondylosis of lumbar region without myelopathy or radiculopathy documented as of this encounter Visit Diagnoses Not on filedocumented in this encounter Care Teams Rivet Sticker Relationship Specialty Start Date End Date Lianet Muñoz APRN [address] [place] [address] PCP - General Geriatric Medicine 11/20/23 documented as of this encounter
--- OUTSIDE RECORDS SUMMARY | 2024-11-12 14:24 | XMS_ITS | Encounter Summary ---
Author Organization [facility] Address [facility] [place] [address] Care Team Providers Care Assistant Chief Nursing Officer Name Role Phone Lianet Muñoz APRN Primary Care Provider [phone] Reason for Visit * Auth/Cert (Routine) Specialty [...] LUMBAR, SINGLE (WRVU 1.52) Karlo Desir MD [facility] [place] [address] [facility] Referral ID Status Reason Start Date Expiration Date Visits Re quested Visits Authorized [id number] 1 1 Encounter Details Date Type Department Care Team (Late Contact Info) Description 10/18/2024 2:15 PM EST Ancillary Procedure [place] [address] Karlo Desir MD [facility] [address] Social History Tobacco Use Types Packs/Day Years [...] Office Visit [facility] [place] [address] Karlo Desir MD [facility] [place] [address] 09/26/2050 Hospital Encounter [place] [address] Karlo Desir MD [facility] [place] [address] Scheduled Procedures Name Priority Associated Diagnoses Date/Ti [...] C ARM Routine 10/18/2024 4:12 PM EST documented in this encounter Results * Film Library- Storage Only pain Clinic C-Arm (10/18/2024 4:12 PM EST) Narrative [facility] - 10/18/2024 4:12 PM EST See PACS for result report. Karlo Desir MD IMG FILM LIBRARY ORD ERABLES [place], [place] documented in this encounter Visit Diagnoses Not on filedocumented in this encounter Care Teams Assistant Chief Nursing Officer Relationship Specialty Start Date End Date Lianet Muñoz APRN [address] [place] [address] PCP - General Geriatric Medicine 11/20/23 documented as of this encounter
--- OUTSIDE RECORDS SUMMARY | 2024-11-12 14:24 | XMS_ITS | Clinical Summary ---
Author Organization [facility] Address [address] [place] [address] Care Team Providers Care Plate Straightener Name Role Phone Reagan Carcamo MD Primary [...] Last Done Comments Fall Risk Screening 2008 RSV Immunization ( o r 60+ Years) (1 - 1-dose 75+ series) 2018 COVID-19 Vaccine ( season) 2024 Care Teams Plate Straightener Relationship Specialty Start Date End Date Reagan Carcamo MD PCP - General 05/25/14
--- OUTSIDE RECORDS SUMMARY | 2024-11-12 14:24 | XMS_ITS | Referral Summary ---
Author Organization [facility] Address [address] [place] [address] Care Team Providers Care Real Estate Associate Attorney Name Role Phone Reagan Carcamo MD Primary Care Provider U navailable Social History Tobacco Use Types Packs/Day Years Used Date Smoking Tobacco: Never Assessed Sex and Gender Information Value Date Recorded Sex Assigned at Not on file Legal Sex Male 18:34 EST Gender Identity Not on file Sexual Orientation Not on file Plan of Treatment Not on file Care Teams Real Estate Associate Attorney Relationship Specialty Start Date End Date Reagan Carcamo MD PCP - General 05/25/14
--- OUTSIDE RECORDS SUMMARY | 2024-11-12 14:24 | XMS_ITS | Encounter Summary ---
Author Organization [facility] Address [facility] [place] [address] Care Team Providers Care Burglar Alarm Mechanic Name Role Phone Lianet Muñoz AUGIE Primary Care Provider [phone] Encounter Details Date Type Department Care Team (Late st Contact Info) Description 09/08/2024 Notes Only [facility] [place] [address] Beti Otoole Social History Tobacco Use Types Packs/Day Years Used Date Smoking Tobacco: Never Smokeless Tobacco: Never Sex and Gender Information Value Date Recorded Sex Assigned at Not on file Gender Identity Not on file Sexual Orientation Not on file documented as of this encounter Progress Notes * Beti Otoole - 09/08/2024 7:50 AM EST Patient: Blue Aldrich [id number] Permission NOT received from Lianet Muñoz to temporarily stop Xarelto for 3 days prior to requested Lumbar Medial Branch Blocks x2 and Lumbar Radiofrequency Ablation. See signed permission received from prescriber scanned into electronic record. Permission received for multiple procedures over 1 year: no PT/INR ordered: no Beti Otoole Provided noted Pt had CBA when held last. Will need bridge or do procedure without holding documented in this encounter Plan of Treatment Upcoming Encounters Date Type Department Care Team (Late st Contact Info) Description 12/31/2024 10:00 AM EST Office Visit [facility] [place] [address] Karlo Desir MD [facility] [place] [address] 09/26/2050 Hospital Encounter [place] [address] Karlo Desir MD [facility] [place] [address] Scheduled Procedures Name Priority Associated Diagnoses Date/Ti me INJECTION, FACET JOINT, W\FLUORO, LUMBAR, 2ND LEVEL (WRVU 1) Spondylosis of lumbar region without myelopathy or radiculopathy INJECTION, FACET JOINT, W\FLUORO, LUMBAR, SINGLE (WRVU 1.52) Spondylosis of lumbar region without myelopathy or radiculopathy documented as of this encounter Visit Diagnoses Not on filedocumented in this encounter Care Teams Burglar Alarm Mechanic Relationship Specialty Start Date End Date Lianet Muñoz APRN [address] [facility] [place] [address] PCP - General Geriatric Medicine 11/20/23 documented as of this encounter
--- OUTSIDE RECORDS SUMMARY | 2024-11-12 14:24 | XMS_ITS | Encounter Summary ---
Author Organization [facility] Address [facility] [place] [address] Care Team Providers Care Conical Mixer Name Role Phone Lianet Muñoz APRN Primary Care Provider [phone] Encounter Details Date Type Department Care Team (Latest Contact Info) Description 10/18/2024 Travel Social History Tobacco Use Types Packs/Day [...] Office Visit [place] [address] Karlo Desir MD [facility] [place] [address] 09/26/2050 Hospital [place] [address] Karlo Desir MD [facility] [place] [address] Scheduled Procedures Name Priority Associated Diagnoses Date/Ti me INJECTION, FACET JOINT, W\FLUORO, LUMBAR, 2ND LEVEL (WRVU 1) Spondylosis of lumbar region without myelopathy or radiculopathy INJECTION, FACET JOINT, W\FLUORO, LUMBAR, SINGLE (WRVU 1.52) Spondylosis of lumbar region without myelopathy or radiculopathy documented as of this encounter Visit Diagnoses Not on filedocumented in this encounter Care Teams Conical Mixer Relationship Specialty Start Date End Date Lianet Muñoz APRN [address] [address] PCP - General Geriatric Medicine 11/20/23 documented as of this encounter
--- OUTSIDE RECORDS SUMMARY | 2024-11-12 14:24 | XMS_ITS | Encounter Summary ---
[place] [address] Care Team Providers Care Stock Raiser Name Role Phone WandaGianniLianet AUGIE Primary Care Provider [phone] Encounter Details Date Type Department Care Team (Late st Contact Info) Description 09/24/2024 Telephone [facility] [place] [address] Sofya Walton RN Social History Tobacco Use Types Packs/Day Years Used Date Smoking Tobacco: Never Smokeless Tobacco: Never Sex and Gender Information Value Date Recorded Sex Assigned at Not on file Gender Identity Not on file Sexual Orientation Not on file documented as of this encounter Miscellaneous Notes * Telephone Encounter - Sofya Walton RN - 09/24/2024 8:37 AM EST Received VM from patient's PCP office stating his DAIRY SUPPLIES SALES REPRESENTATIVE Lianet Wanda is happy to provide a lovenox bridge for when patient is to have procedure with Dr. Desir. Stated they just need to be notified of date of service so they can determine time frame and connect with patient for bridge teaching. Will forward message to procedure residential housekeeper and triage team so when patient is scheduled nurse can reach out to PCPs office with procedure date. [phone] for PCPs office. documented in this encounter Plan of Treatment Upcoming Encounters Date Type Department Care Team (Late st Contact Info) Description 12/31/2024 10:00 AM EST Office Visit [facility] [place] [address] Karlo Desir MD [facility] [place] [address] 09/26/2050 Hospital Encounter Pain Management [facility] [place] [address] Karlo Desir MD [facility] [place] [address] Scheduled Procedures Name Priority Associated Diagnoses Date/Ti me INJECTION, FACET JOINT, W\FLUORO, LUMBAR, 2ND LEVEL (WRVU 1) Spondylosis of lumbar region without myelopathy or radiculopathy INJECTION, FACET JOINT, W\FLUORO, LUMBAR, SINGLE (WRVU 1.52) Spondylosis of lumbar region without myelopathy or radiculopathy documented as of this encounter Visit Diagnoses Not on filedocumented in this encounter Care Teams Stock Raiser Relationship Specialty Start Date End Date Lianet Muñoz APRN [address] [place] [address] PCP - General Geriatric Medicine 11/20/23 documented as of this encounter
--- OUTSIDE RECORDS SUMMARY | 2024-11-12 14:24 | XMS_ITS | Encounter Summary ---
Author Organization [facility] [place] [address] Care Team Providers Care Autocad Operator Name Role Phone Wanda Lianet GHOSH Primary Care Provider [phone] Encounter Details Date Type Department Care Team (Late st Contact Info) Description 10/01/2024 Telephone [facility] [place] [address] Dianne Perry RN Social History Tobacco Use Types Packs/Day Years Used Date Smoking Tobacco: Never Smokeless Tobacco: Never Sex and Gender Information Value Date Recorded Sex Assigned at Not on file Gender Identity Not on file Sexual Orientation Not on file documented as of this encounter Miscellaneous Notes * Telephone Encounter - Dianne Perry RN - 10/01/2024 10:36 AM ESTSummary: Order for Xarelto PreProcedure Letter from Dr Desir re bleeding risk of procedure faxed to PCP [phone]. Per Juanis-Ruy Muñoz pt to hold Xarelto one day only, the evening of Oct 17, take Lovenox 40 mg in AM of 10/18, and resume Xarelto the evening of 10/18 unless pt is having bleeding then he would need to be reevaluated. Message sent to Dr Desir, and Aleksandr Estrada and Sofya as FYI. * Telephone Encounter - Dianne Perry RN - 10/01/2024 9:40 AM ESTSummary: Spoke with PCP office re Lovenox bridge TC to PCP office Lianet Muñoz APRN spoke with triage nurse Janet. I informed her that pt is scheduled for a 10/18/24 injection and we would need pt to be covered with a Lovenox bridge prior to procedure. Janet then transferred me to Juanis triage nurse who reports that PCP is requiring a letter stating that LMBB diagnostic is a low risk for bleeding. Message will be sent to Dr Desir. documented in this encounter Plan of Treatment Upcoming Encounters Date Type Department Care Team (Late st Contact Info) Description 12/31/2024 10:00 AM EST Office Visit [place] [address] Karlo Desir MD [facility] [place] [address] 09/26/2050 Hospital Encounter [place] [address] Karlo Desir MD [facility] [place] [address] Scheduled Procedures Name Priority Associated Diagnoses Date/Ti me INJECTION, FACET JOINT, W\FLUORO, LUMBAR, 2ND LEVEL (WRVU 1) Spondylosis of lumbar region without myelopathy or radiculopathy INJECTION, FACET JOINT, W\FLUORO, LUMBAR, SINGLE (WRVU 1.52) Spondylosis of lumbar region without myelopathy or radiculopathy documented as of this encounter Visit Diagnoses Not on filedocumented in this encounter Care Teams Autocad Operator Relationship Specialty Start Date End Date Lianet Muñoz APRN [address] [place] [address] PCP - General Geriatric Medicine 11/20/23 documented as of this encounter
--- OUTSIDE RECORDS SUMMARY | 2024-11-12 14:24 | XMS_ITS | Encounter Summary ---
Author Organization [facility] Address [address] [place] [address] Care Team Providers Care Lithostripper Name Role Phone Unavailable Primary Care Provider Unavailabl e Encounter Details Date Type Department Care Team (Latest Contact Info) Description 05/20/2014 16:19 EDT - 05/20/2014 23:59 EDT Hospital Encounter [address] [address] Unknown, Provider, MD Discharge Disposition: Home or Self Care Social History Tobacco Use Types Packs/Day Years Used Date Smoking Tobacco: Never Assessed Sex and Gender Information Value Date Recorded Sex Assigned at Not on file Legal Sex Male 18:34 EST Gender Identity Not on file Sexual Orientation Not on file documented as of this encounter Discharge Disposition Disposition Code Departure Means Destination Home or Self [facility] documented in this encounter Plan of Treatment Not on file documented as of this encounter Visit Diagnoses Not on filedocumented in this encounter
--- OUTSIDE RECORDS SUMMARY | 2024-11-12 14:24 | XMS_ITS | Encounter Summary ---
Author Organization [facility] Address [facility] [place] [address] Care Team Providers Care Licensed Plumber Name Role Phone Lianet Muñoz APRN Primary Care Provider [phone] Encounter Details Date Type Department Care Team (Late st Contact Info) Description 08/05/2024 Telephone [facility] [place] [address] Enedina Elias, RN Social History Tobacco Use Types Packs/Day Years Used Date Smoking Tobacco: Never Smokeless Tobacco: Never Sex and Gender Information Value Date Recorded Sex Assigned at Not on file Gender Identity Not on file Sexual Orientation Not on file documented as of this encounter Miscellaneous Notes * Telephone Encounter - Enedina Elias, RN - 08/05/2024 4:03 PM EDT Copied from [facility] #[id number]. Topic: Specialty Dept CRMs - Appointment Needed >> Aug 05, 2024 9:44 AM Ronna Izaguirre wrote: Appt Needed Specialist Dr. Mccabe...... Appt. Type Needed: Other Reason for Visit: Injection - pt states she spoke to pcp per Dr. Mccabe's instructions and pcp should have reached back out to office by now for him to move forward with procedure Reviewed chart. 07/16/24: New Pt OV 6. Further procedures recommended: Discussed a trial [...] patient will call to schedule above discussed procedure......... 9. Follow up: Patient will call to discuss procedure as discussed above if cleared by primary care provider. Nothing in chart or Media. OUTGOING call to pt. Reported to pt, and pt stated he would reach out tohis PCP again. documented in this encounter Plan of Treatment Upcoming Encounters Date Type Department Care Team (Late st Contact Info) Description 12/31/2024 10:00 AM EST Office Visit [place] [address] Karlo Desir MD [facility] [place] [address] 09/26/2050 Hospital [place] [address] Karlo Desir MD [facility] [place] [address] Scheduled Procedures Name Priority Associated Diagnoses Date/Ti me INJECTION, FACET JOINT, W\FLUORO, LUMBAR, 2ND LEVEL (WRVU 1) Spondylosis of lumbar region without myelopathy or radiculopathy INJECTION, FACET JOINT, W\FLUORO, LUMBAR, SINGLE (WRVU 1.52) Spondylosis of lumbar region without myelopathy or radiculopathy documented as of this encounter Visit Diagnoses Not on filedocumented in this encounter Care Teams Licensed Plumber Relationship Specialty Start Date End Date Lianet Muñoz APRN [address] [place] [address] PCP - General Geriatric Medicine 11/20/23 documented as of this encounter
--- OUTSIDE RECORDS SUMMARY | 2024-11-12 14:24 | XMS_ITS | Continuity of Care Document ---
Author Organization [facility] Ambulatory Clinics Address [address] [place] [address] Care Team Providers Care Mattress Packer Name Role Phone SKYLAR JONES DO Primary Care Physician Encounter [facility] NBR [id number] Date(s): 04/05/24 - 04/05/24 [facility] Ambulatory Clinics [address] [place] [address]- [place] Patient Care team information Care Team Personnel Name: SKYLAR JONES DO Position: No Access Member Role: Primary Care Physician Address: Address: [address] [address]
--- OUTSIDE RECORDS SUMMARY | 2024-11-12 14:24 | XMS_ITS | Encounter Summary ---
Author Organization [facility] Address [facility] [place] [address] Care Team Providers Care Wildland Fire Operations Specialist Name Role Phone Lianet Muñoz APRN Primary Care Provider [phone] Encounter Details Date Type Department Care Team (Late st Contact Info) Description 08/27/2024 Orders Only [place] [address] Kathy Mccabe MD [facility] [place] [address] Spondylosis of lumbar region without myelopathy or radiculopathy (Primary Dx); Chronic pain syndrome Social History Tobacco Use Types Packs/Day Years [...] Office Visit [place] [address] Karlo Desir MD [facility] [place] [address] 09/26/2050 Hospital Encounter [place] [address] Karlo Desir MD [facility] [place] [address] Scheduled Procedures Name Priority Associated Diagnoses Date/Ti [...] Chronic pain syndrome documented in this encounter Care Teams Wildland Fire Operations Specialist Relationship Specialty Start Date End Date Lianet Muñoz APRN [address] [place] [address] PCP - General Geriatric Medicine 11/20/23 documented as of this encounter
--- OUTSIDE RECORDS SUMMARY | 2024-11-12 14:25 | XMS_ITS | Encounter Summary ---
Author Organization [facility] [place] [address] Care Team Providers Care Cash Control Specialist Name Role Phone Lianet Muñoz APRN Primary Care Provider [phone] Reason for Referral * Consultation (Routine) - Closed Specialty Diagnoses / Procedures Referred By Guero galicia Referred To Contact Dermatology Diagnoses Melanocytic nevus of face CHANGE IN NEVUS OF FACE Lianet Muñoz APRN [address] [place] [address] [facility] Dermatology [address] [place] [address] Referral ID Status Reason Start Date Expiration Date V isits Requested Visits Authorized [id number] Closed Consult, Test & Treat PCP Updated and/or Approved 11/20/2023 11/19/2024 1 1 Encounter Details Date Type Department Care Team (Latest Contact Info) Description 11/20/2023 Transcribe Orders eDH Incoming Referrals [phone] Lianet Muñoz APRN [address] [place] [address] Melanocytic nevus of face Social [...] Office Visit [facility] [place] [address] Karlo Desir MD [facility] [place] [address] 09/26/2050 Hospital Encounter [place] [address] Karlo Desir MD [facility] [place] [address] Scheduled Procedures Name Priority Associated Diagnoses Date/Ti me INJECTION, FACET JOINT, W\FLUORO, LUMBAR, 2ND LEVEL (WRVU 1) Spondylosis of lumbar region without myelopathy or radiculopathy INJECTION, FACET JOINT, W\FLUORO, LUMBAR, SINGLE (WRVU 1.52) Spondylosis of lumbar region without myelopathy or radiculopathy Scheduled Referrals Name Type Priority Associated Diagnoses Order Schedule Referral to Dermatology Outpatient Referral Routine Melanocytic nevus of face Ordered: 11/20/2023 documented as of this encounter Visit Diagnoses Diagnosis Melanocytic nevus of face Benign neoplasm of skin of other and unspecified parts of face documented in this encounter Care Teams Cash Control Specialist Relationship Specialty Start Date End Date Lianet Muñoz APRN [address] [place] [address] PCP - General Geriatric Medicine 11/20/23 documented as of this encounter
--- OUTSIDE RECORDS SUMMARY | 2024-11-12 14:25 | XMS_ITS | Encounter Summary ---
Author Organization [facility] Address [facility] [place] [address] Care Team Providers Care Producer Director Name Role Phone Unknown Primary Care Provider Unavailabl e Encounter Details Date Type Department Care Team (Latest Contact Info) Description 01/20/2023 5:18 PM EDT - 01/20/2023 11:59 PM EDT Hospital [place] [address] Discharge Disposition: Home Social History Tobacco Use Types Packs/Day Years Used Date Smoking Tobacco: Never Assessed Sex and Gender Information Value Date Recorded Sex Assigned at Not on file Gender Identity Not on file Sexual Orientation Not on file documented as of this encounter Medications at Time of Discharge Medication Sig Dispensed Refills Start Date End Date albuteroL 90 mcg/actuation inhaler (HFA) Inhale 2 puffs into the lungs 3 times daily as needed. 09/11/2021 documented as of this encounter Plan of Treatment Upcoming Encounters Date Type Department Care Team (Late st Contact Info) Description 12/31/2024 10:00 AM EST Office Visit [place] [address] Karlo Desir MD [facility] [place] [address] 09/26/2050 Hospital En[place] [address] Karlo Desir MD [facility] [place] [address] Scheduled Procedures Name Priority Associated Diagnoses Date/Ti [...] Surgical Pathology Report (01/20/2023 11:00 AM EDT) Final Diagnosis [id number] ? Location: [facility] The signing pathologist has [...] MD Verified: ??02/10/2023 16:05 ??Pathologist Performed at: ??-[facility] Dept. of Pathology, [place] [address] Bias Cutter: Cassie Landa MD, FCAP, ??CLIA Certificate: [id number] SPECIMEN(S) SUBMITTED A - Antrum B - [...] toto ??in 1 cassette labeled C1. ??sdy 02/10/2023 4:05 PM EDT [facility] GI Biopsy 01/20/2023 11:0 0 AM EDT 01/20/2023 11:00 AM EDT GI Biopsy 01/20/2023 11:0 0 AM EDT 01/20/2023 11:00 AM EDT GI Biopsy 01/20/2023 11:0 0 AM EDT 01/20/2023 11:00 AM EDT Uriel Valenzuela DO PATHOLOGY/CYT OLOGY ORDERABLES [facility] [place] [address] [facility] [place] [address] documented in this encounter Visit Diagnoses Not on filedocumented in this encounter Care Teams Producer Director Relationship Specialty Start Date End Date Unknown None PCP - General 08/06/17 11/19/23 documented as of this encounter
--- OUTSIDE RECORDS SUMMARY | 2024-11-12 14:25 | XMS_ITS | Encounter Summary ---
Author Organization [facility] Address [facility] [place] [address] Care Team Providers Care Cytology Teacher Name Role Phone Unknown Primary Care Provider Unavailabl e Encounter Details Date Type Department Care Team (Late st Contact Info) Description 01/24/2023 Telephone Cardiology at [address] [address] Uriel Kennedy MD Social History Tobacco Use Types Packs/Day Years Used Date Smoking Tobacco: Never Assessed Sex and Gender Information Value Date Recorded Sex Assigned at Not on file Gender Identity Not on file Sexual Orientation Not on file documented as of this encounter Miscellaneous Notes * Telephone Encounter - Uriel Kennedy MD - 01/24/2023 4:02 AM EDT Did not speak to provider at [facility] regarding patient once I verbalized we were unable to transfer nor did we have a list for transfer. Uriel Kennedy Air Battle Manager, [id number] documented in this encounter Plan of Treatment Upcoming Encounters Date Type Department Care Team (Late st Contact Info) Description 12/31/2024 10:00 AM EST Office Visit [place] [address] Karlo Desir MD [facility] [place] [address] 09/26/2050 Hospital Encounter [place] [address] Karlo Desir MD [facility] [place] [address] Scheduled Procedures Name Priority Associated Diagnoses Date/Ti me INJECTION, FACET JOINT, W\FLUORO, LUMBAR, 2ND LEVEL (WRVU 1) Spondylosis of lumbar region without myelopathy or radiculopathy INJECTION, FACET JOINT, W\FLUORO, LUMBAR, SINGLE (WRVU 1.52) Spondylosis of lumbar region without myelopathy or radiculopathy documented as of this encounter Visit Diagnoses Not on filedocumented in this encounter Care Teams Cytology Teacher Relationship Specialty Start Date End Date Unknown None PCP - General 08/06/17 11/19/23 documented as of this encounter
--- OUTSIDE RECORDS SUMMARY | 2024-11-12 14:25 | XMS_ITS | Encounter Summary ---
Author Organization [facility] Address [facility] [place] [address] Care Team Providers Care Retail Sales Specialist Name Role Phone Unknown Primary Care Provider Unavailabl e Encounter Details Date Type Department Care Team (Late st Contact Info) Description 12/06/2021 12:13 PM EST - 12/06/2021 11:59 PM EST Hospital Encounter [facility] [address] [place] [address] Uriel Valenzuela, [address] [place] [address] Discharge Disposition: Home Social History Tobacco Use [...] Office Visit [facility] [place] [address] Karlo Desir MD [facility] [place] [address] 09/26/2050 Hospital [place] [address] Karlo Desir MD [facility] [address] PAIN MANAGEMENT [facility] [place] [address] Scheduled Procedures Name Priority Associated Diagnoses Date/Ti [...] EST) SARS-CoV-2 RNA Not Detected Not Detected [facility] Comment: This result should [...] on the instructions for use provided by [employer] and additional guidance provided by CDC and FDA. Testing is performed in the Clinical Genomics and [facility] Laboratory within the Department of Pathology and Laboratory Medicine at [facility], certified under the Clinical Laboratory Improvement Amendments [...] fact sheets at the following FDA website: https://www.fda.gov/medical-devices/jjpzfefjeyw-hyagpob-3490-blleq-88-fsyaagcrv- use-a kuubidjbpjuuv-zzlhtfb-keopomw/dmmad-nmejrhpkwin-kauj SARS-CoV-2 RNA Source NURSING TECHN Swab [facility] Nasopharyngeal Swab 12/06/19 10:00 AM EST 12/06/2021 10:41 PM EST Narrative Resulting Agency Comment Spec In Lab Uriel Valenzuela DO MOLECULAR ORD ERABLES [facility] [place] [address] documented in this encounter Visit Diagnoses Not on filedocumented in this encounter Care Teams Retail Sales Specialist Relationship Specialty Start Date End Date Unknown None PCP - General 08/06/17 11/19/23 documented as of this encounter
--- OUTSIDE RECORDS SUMMARY | 2024-11-12 14:25 | XMS_ITS | Encounter Summary ---
Author Organization [facility] [place] [address] Care Team Providers Care Java Systems Analyst Name Role Phone Lianet Muñoz APRN Primary Care Provider [phone] Encounter Details Date Type Department Care Team (Late st Contact Info) Description 03/31/2024 Ancillary Procedure Radiology Library at [facility] [place] [phone] Lianet Muñoz APRN [address] [place], [place] [id number] Social History Tobacco Use Types Packs/Day Years [...] Office Visit [facility] [place] [address] Karlo Desir MD [facility] [place] [address] 09/26/2050 Hospital Encounter [place] [address] Karlo Desir MD [facility] [place] [address] Scheduled Procedures Name Priority Associated Diagnoses Date/Ti [...] MR Spine (03/31/2024 12:00 AM EDT) Narrative [facility] - 05/11/2024 9:59 AM EDT This exam is auto-finalizing. It's purpose is for storage only. Lianet Muñoz APRN IMG FILM LIBRARY OR DERABLES Performing Organization Address City/State/[facility] Co de Phone Number [place], [place] documented in this encounter Visit Diagnoses Not on filedocumented in this encounter Care Teams Java Systems Analyst Relationship Specialty Start Date End Date Lianet Muñoz APRN [address] [facility] [place] [address] PCP - General Geriatric Medicine 11/20/23 documented as of this encounter
--- OUTSIDE RECORDS SUMMARY | 2024-11-12 14:25 | XMS_ITS | Encounter Summary ---
Author Organization [place] [address] Care Team Providers Care Cement Sprayer Helper Name Role Phone Lianet Muñoz APRN Primary Care Provider [phone] Reason for Referral * Consultation (Routine) - Closed Specialty Diagnoses / Procedures Referred By Contcolby t Referred To Contact [facility] Sp[facility] Center Diagnoses Other intervertebral disc displacement, lumbar region lumbar radiculopathy/MRI 03/31/24 in - Dion Reyes DO [address] [place] [address] [facility] [place] [address] Referral ID Status Reason Start Date Expiration Date V isits Requested Visits Authorized [id number] Closed Consult, Test & Treat PCP Updated and/or Approved 04/09/2024 04/09/2025 1 1 Encounter Details Date Type Department Care Team (Latest Contact Info) Description 04/25/2024 Transcribe Orders eDH Incoming Referrals [phone] Lianet Muñoz APRN [address] [place] [address] Other intervertebral disc displacement, lumbar [...] Office Visit [facility] [place] [address] Karlo Desir MD [facility] PAIN [place] [address] 09/26/2050 Hospital [place] [address] Karlo Desir MD [facility] PAIN [place]NA[place] [address] Scheduled Procedures Name Priority Associated Diagnoses Date/Ti [...] region documented in this encounter Care Teams Cement Sprayer Helper Relationship Specialty Start Date End Date Lianet Muñoz APRN [address] [facility] [place] [address] PCP - General Geriatric Medicine 11/20/23 documented as of this encounter
--- OUTSIDE RECORDS SUMMARY | 2024-11-12 14:25 | XMS_ITS | Encounter Summary ---
Author Organization [facility] Address [facility] [place] [address] Care Team Providers Care Grand Jury Deputy Sheriff Name Role Phone MgLianet Pineda LICENSING AND REGISTRATION DIRECTOR Primary Care Provider [phone] Reason for Visit * Consultation (Routine) - Closed Specialty Diagnoses / Procedures Referred By Guero galicia Referred To Contact Dermatology Diagnoses Melanocytic nevus of face CHANGE IN NEVUS OF FACE Lianet Muñoz APRN [address] [place] [address] [facility] Dermatology [address] [place] [address] Referral ID Status Reason Start Date Expiration Date V isits Requested Visits Authorized [id number] Closed Consult, Test & Treat PCP Updated and/or Approved 11/20/2023 11/19/2024 1 1 Encounter Details Date Type Department Care Team (Late st Contact Info) Description 02/16/2024 1:20 PM EDT Office Visit Dermatology at [facility] [address] [place] [address] Bryan Gan MD [address] [facility] [place] [address] Verruca vulgaris Social History Tobacco Use Types [...] Bryan Gan MD FAAD at Dermatology at [facility] Patient's preferred name Bleu Preferred contact method for results Home Phone [...] dermatitis. [] Recall placed [] Forwarded to clinic scheduler [] Patient scheduled before exiting Scribe attestation: Eduardo Aguirre [facility] has performed the documentation for this encounter in the presence of and acting as a scribe for Bryan Gan MD FAAD. I performed the above scribed service and agree with the accuracy of the documentation in this encounter. Reviewed and signed by: Bryan Gan MD FAADmitriy Dermatology [facility] documented in this encounter Plan of Treatment Upcoming Encounters Date Type Department Care Team (Late st Contact Info) Description 12/31/2024 10:00 AM EST Office Visit [place] [address] Karlo Desir MD [facility] [place] [address] 09/26/2050 Hospital Encounter [place] [address] Karlo Desir MD [facility] [place] [address] Scheduled Procedures Name Priority Associated Diagnoses Date/Ti me INJECTION, FACET JOINT, W\FLUORO, LUMBAR, 2ND LEVEL (WRVU 1) Spondylosis of lumbar region without myelopathy or radiculopathy INJECTION, FACET JOINT, W\FLUORO, LUMBAR, SINGLE (WRVU 1.52) Spondylosis of lumbar region without myelopathy or radiculopathy documented as of this encounter Visit Diagnoses Diagnosis Verruca vulgaris Viral warts, unspecified documented in this encounter Care Teams Grand Jury Deputy Sheriff Relationship Specialty Start Date End Date Lianet Muñoz APRN [address] [place] [address] PCP - General Geriatric Medicine 11/20/23 documented as of this encounter
--- OUTSIDE RECORDS SUMMARY | 2024-11-12 14:25 | XMS_ITS | Encounter Summary ---
Author Organization [facility] Address [facility] [place] [address] Care Team Providers Care Freedom Of Information Officer Name Role Phone Lianet Muñoz APRN Primary Care Provider [phone] Encounter Details Date Type Department Care Team [...] Office Visit [facility] at [place] [phone] Karlo Desir MD [facility] [place] [address] 09/26/2050 Hospital Encounter [place] [address] Karlo Desir MD [facility] [place] [address] Scheduled Procedures Name Priority Associated Diagnoses Date/Ti me INJECTION, FACET JOINT, W\FLUORO, LUMBAR, 2ND LEVEL (WRVU 1) Spondylosis of lumbar region without myelopathy or radiculopathy INJECTION, FACET JOINT, W\FLUORO, LUMBAR, SINGLE (WRVU 1.52) Spondylosis of lumbar region without myelopathy or radiculopathy documented as of this encounter Visit Diagnoses Not on filedocumented in this encounter Care Teams Freedom Of Information Officer Relationship Specialty Start Date End Date Lianet Muñoz APRN [address] [place] [address] PCP - General Geriatric Medicine 11/20/23 documented as of this encounter
--- OUTSIDE RECORDS SUMMARY | 2024-11-12 14:25 | XMS_ITS | Encounter Summary ---
Author Organization [facility] Address [facility] [address] [place] [address] Care Team Providers Care Hospice Team Lead Name Role Phone Unknown Primary Care Provider Unavailabl e Encounter Details Date Type Department Care Team (Latest Contact Info) Description 01/20/2023 2:29 PM EDT - 01/20/2023 5:17 PM EDT Hospital [place] [address] Discharge Disposition: Home Social History Tobacco Use [...] Office Visit [facility] [place] [address] Karlo Desir MD [facility] [place] [address] 09/26/2050 Hospital Encounter [place] [address] Karlo Desir MD [facility] [place] [address] Scheduled Procedures Name Priority Associated Diagnoses Date/Ti me INJECTION, FACET JOINT, W\FLUORO, LUMBAR, 2ND LEVEL (WRVU 1) Spondylosis of lumbar region without myelopathy or radiculopathy INJECTION, FACET JOINT, W\FLUORO, LUMBAR, SINGLE (WRVU 1.52) Spondylosis of lumbar region without myelopathy or radiculopathy documented as of this encounter Visit Diagnoses Not on filedocumented in this encounter Care Teams Hospice Team Lead Relationship Specialty Start Date End Date Unknown None PCP - General 08/06/17 11/19/23 documented as of this encounter
--- OUTSIDE RECORDS SUMMARY | 2024-11-12 14:25 | XMS_ITS | Encounter Summary ---
Author Organization [facility] Address [facility] [place] [address] Care Team Providers Care Executive Director Of Nursing Name Role Phone Unknown Primary Care Provider Unavailabl e Encounter Details Date Type Department Care Team (Latest Contact Info) Description 12/12/2021 11:03 PM EST - 12/12/2021 11:59 PM EST Hospital [place] [phone] Discharge Disposition: Home Social History Tobacco Use [...] Office Visit [facility] [place] [phone] Karlo Desir MD [facility] [place] [address] 09/26/2050 Hospital [place] [phone] Karlo Desir MD [facility] [place] [address] Scheduled Procedures Name Priority Associated Diagnoses Date/Ti [...] Surgical Pathology Report (12/12/2021 3:35 PM EST) Final Diagnosis [id number] ? Location: [facility] The signing pathologist has [...] Mendez Verified: ??12/19/2021 10:19 ??Pathologist Performed at: ??-[facility] Dept. of Pathology, [place], [place] DISCUSSION 1. ??There is no immunohistochemical [...] Referring Identifier: ?(not provided) Report to: Ilda Brent CLINICAL INFORMATION Iron deficiency anemia, multiple stomach [...] polyp, inked and quadrisected ?B4: ??Two polyps ??sns 12/19/2021 10:19 AM EST [facility] GI Biopsy 12/12/2021 3:35 PM EST 12/12/2021 3:35 PM EST GI Biopsy 12/12/2021 3:35 PM EST 12/12/2021 3:35 PM EST Uriel Valenzuela DO PATHOLOGY/CYTOL OGY ORDERABLES Performing Organization Address City/State/[facility] Co de Phone Number [facility] [place] [address] documented in this encounter Visit Diagnoses Not on filedocumented in this encounter Care Teams Executive Director Of Nursing Relationship Specialty Start Date End Date Unknown None PCP - General 08/06/17 11/19/23 documented as of this encounter
== END 2024-11-12 14:40 ==
LOC: DI 14:22
PROVIDERS: PCP Nurse Practitioner Adult Health; Visit Provider Nurse Practitioner Family
DX: R05.9 Cough, unspecified (principal); I51.7 Cardiomegaly
CPT/HCPCS: 71046

== ENCOUNTER 2025-01-05 03:57 | Outpatient (CLI) | payer MEDICARE, OTHER, SELFPAY ==
--- NOTE | 2025-01-05 06:45 | DI.US_ITS ---
Exam(s) US THYROID EXAM: US THYROID CLINICAL HISTORY: interval F/U THYROID NODULE,E04.1. TECHNIQUE: Ultrasound thyroid performed using standard protocol. COMPARISON: US US THYROID from 01/16/2024 FINDINGS: ISTHMUS: 3 mm RIGHT LOBE: Size: 5.3 x 2.3 x 1.7 cm Echogenicity: Normal. Vascularity: Normal. Nodules: No nodules are seen on the right to warrant follow-up or biopsy. LEFT LOBE: Size: 7.5 x 4.3 x 3.8 cm Echogenicity: There is a predominantly solid isoechoic nodule in the superior pole measuring 2.8 x 2 .0 x 2.2 cm. Previously this measured 2.4 x 2.1 x 2.4 cm. It has smooth margins. No echogenic foci ar e seen. It is consistent with a TI rads level 3 nodule. Due to its size, FNA is recommended. There is also a solid isoechoic nodule in the inferior pole of the left lobe measuring 4.8 x 3.6 x 3.7 cm. Th is compares to 4.7 x 3.4 x 3.8 cm. There are punctate echogenic foci seen internally. It is consisten t with a TI rads 4 level nodule. Due to its size, biopsy is recommended. Vascularity: Normal. Nodules: None. OTHER FINDINGS: None. IMPRESSION: There again seen 2 solid left thyroid nodules as described above. Due to their sizes, biopsy is recom mended of each of the nodules. DATA REPOSITORY:
== END 2025-01-05 04:17 ==
PROVIDERS: PCP Nurse Practitioner Adult Health; Visit Provider Nurse Practitioner Adult Health
DX: R92.8 Other abnormal and inconclusive findings on diagnostic imaging of breast
CPT/HCPCS: 76642; 76536